=== PATIENT | female | born 1955 | race Caucasian/White ===

== ENCOUNTER → 2022-04-26 08:38 | Outpatient (BNVA) | payer MEDICARE, OTHER, SELFPAY | PROVIDERS: Referring Provider Internal Medicine; Visit Provider Specialist | DX: F07.81 Postconcussional syndrome (principal); R41.3 Other amnesia; F32.A Depression, unspecified; G43.901 Migraine, unspecified, not intractable, with status migrainosus; Z98.1 Arthrodesis status | CPT/HCPCS: 96116; 99205 ==

== ENCOUNTER 2022-05-20 07:56 | Outpatient (CLI) | payer MEDICARE, OTHER, SELFPAY ==
--- NOTE | 2022-05-20 08:00 | MR_ITS ---
WS: [id number] MRI BRAIN WITH AND WITHOUT CONTRAST HISTORY: F07.81 - Postconcussional syndrome COMPARISON: None. TECHNIQUE: Multiplanar imaging performed through the brain with MultiHance 20 ml's IV. Significant motion artifact on the postcontrast imaging. No acute infarcts are seen. Pulido-white matter differentiation is well preserved. Mild atrophy. No prior infarcts. No significant small vessel ischemic disease. No prior hemorrhage. No susceptibility artifacts or prior lacunar infarcts. Ventricles and extra-axial spaces are normal. Clivus and pituitary gland are normal. Visualized posterior fossa and brainstem are also normal. Postcontrast images are negative for masses or vascular malformations. Dural venous sinuses are normal. Paranasal sinuses: Well aerated with no significant disease. Mastoid air cells: Bilateral mastoid air cell effusions, RIGHT greater than LEFT. Calvarium and scalp: Normal. MR/MR head wo/w con [id number] IMPRESSION: 1. No acute infarct or hemorrhage. 2. Very mild atrophy. 3. No enhancing masses or vascular malformations are identified. 4. Bilateral mastoid air cell effusions, RIGHT greater than LEFT.
[2022-05-20] MEDS: gadobenate dimeglumine 20 mL vial IV (08:54)
== END 2022-05-20 07:57 | disposition home or self-care (01) ==
PROVIDERS: Visit Provider Specialist
DX: F07.81 Postconcussional syndrome (principal); R41.89 Other symptoms and signs involving cognitive functions and awareness; R51.9 Headache, unspecified
CPT/HCPCS: 70553; 95812; 95816; A9577

== ENCOUNTER 2022-05-20 10:08 | Outpatient (CLI) | payer MEDICARE, OTHER, SELFPAY ==
--- NOTE | 2022-05-20 13:10 | XR_ITS ---
WS: [id number] XR lumbar spine 2-3V* [id number] REASON FOR EXAM: LUMBAR RADICULOPATHY FINDINGS: Posterior decompression with posterior pedicle screw placement and interconnecting rods L4, L5, S1. I nterbody fusion devices at L4-L5 and L5-S1. Anterior plate and screw fixation at L5-S1. No significant vertebral body abnormality. Mild narrowing of the L1-L2 and L2-L3 disc space with severe narrowing of the L3-L4 disc space. Degen erative gas is seen in the same 3 disc spaces. No significant listhesis. XR/XR lumbar spine 2-3V* [id number] IMPRESSION: Postoperative lumbar spine with degenerative spondylosis as above.
== END 2022-05-20 10:09 | disposition home or self-care (01) ==
PROVIDERS: PCP Nurse Practitioner Family; Visit Provider Nurse Practitioner Family
DX: M54.16 Radiculopathy, lumbar region (principal); Z98.890 Other specified postprocedural states; M47.816 Spondylosis without myelopathy or radiculopathy, lumbar region
CPT/HCPCS: 72100

== ENCOUNTER 2025-03-25 13:46 | Outpatient (CLI) | payer MEDICARE, OTHER, SELFPAY ==
--- NOTE | 2025-03-25 13:51 | US_ITS ---
WS: [id number] THYROID ULTRASOUND HISTORY: THYROID NODULE COMPARISON: None available. Right lobe: 1.4 cm x 2.0 cm x 3.3 cm (w x ap x l). Volume: 4.4 cm3. Mildly enlarged nodular thyroid. There is a slightly isoechoic nodule in the mid gland with a few echogenic foci. This anterior nodule measures 1.2 x 0.7 x 1.2 cm. This is a solid nodule. Mild increased vascularity. The remaining gland is enlarged and nodular also. Left lobe: 1.4 cm x 1.3 cm x 3.2 cm (w x ap x l). Volume: 2.7 cm3. Lobulated gland. There is a nodule in the mid gland with a few echogenic foci. This is a well-circumscribed solid nodule measuring 1.1 x 1.0 x 0.8 cm. Isthmus: 0.3 cm. US/US thyroid [id number] IMPRESSION: TI-RADS 4; bilateral thyroid nodules. TI-RADS criteria recommends yearly ultras ound follow-up for nodules less than 1.5 cm. Both of these nodules are less rivka n 1.5 cm.
== END 2025-03-25 13:47 | disposition home or self-care (01) ==
LOC: RAD 13:48
PROVIDERS: PCP Nurse Practitioner Family; Visit Provider Student in an Organized Health Care Education/Training Program
DX: E04.1 Nontoxic single thyroid nodule (principal)
CPT/HCPCS: 76536

== ENCOUNTER 2025-04-13 13:40 | Emergency (ER) | payer MEDICARE, OTHER, SELFPAY ==
[2025-04-13 13:41] VITALS: BP 149/98; PULSE 95; RESP 18; TEMP 36.6; O2SAT 97; BMI 29.3
--- NOTE | 2025-04-13 13:46 | W.ED.NAVMDI ---
HPI - Nausea/Vomiting/Diarrhea General: Chief complaint: Nausea/Vomiting/Diarrhea Stated complaint: n/v/d Time Seen by Provider: 04/13/25 13:41 Source: patient and EMS Mode of arrival: EMS Limitations: no limitations History of Present Illness: 70-year-old female states she been having nausea vomiting over the last 24 hours. She denies any diarrhea she denies any worse improving factors she denies any abdominal pain has a history of a hiatal hernia. Denies any blood in her vomitus Related Data Home Medications ?Medication ?Instructions ?Recorded ?Confirmed alprazolam 2 mg tablet 2 mg PO DAILY 04/26/22 05/20/22 atomoxetine 10 mg capsule 40 mg PO QAM 04/26/22 05/20/22 atorvastatin 10 mg tablet 10 mg PO DAILY 04/26/22 05/20/22 donepezil 23 mg tablet 23 mg PO DAILY 04/26/22 05/20/22 meloxicam 15 mg tablet 15 mg PO DAILY 04/26/22 05/20/22 metaxalone 800 mg tablet 800 mg PO TID 04/26/22 05/20/22 niacin 500 mg tablet,extended 500 mg PO QAM 04/26/22 05/20/22 release vortioxetine 5 mg tablet 5 mg PO DAILY 04/26/22 05/20/22 (Trintellix) Previous Rx's ?Medication ?Instructions ?Recorded topiramate 100 mg tablet (Topamax) 100 mg PO DAILY #30 tabs 04/26/22 ondansetron 4 mg disintegrating 4 mg PO Q6H PRN nausea and 04/13/25 tablet vomiting #14 tabs Allergies Allergy/AdvReac Type Severity Reaction Status Date / Time No Known Allergies Allergy Verified 05/20/22 14:03 Review of Systems GI: Reports: vomiting Physical Exam Const: COMMON NORMALS: no acute distress, patient oriented x3 and healthy appearing HENMT: COMMON NORMALS: normocephalic and atraumatic HEAD & SCALP: normocephalic and atraumatic Neck/C-Spine: COMMON NORMALS: full ROM and supple Chest: COMMONS NORMALS: normal inspection of the chest and normal palpation of entire chest wall Resp: COMMON NORMALS: normal respiratory effort, No retractions, No use of accessory muscles and clear to auscultation bilaterally AUSCULTATION: clear to auscultation bilaterally Cardio: COMMON NORMALS: regular rate, regular rhythm and No murmurs present (Cardio) RATE: regular rate RHYTHM: regular rhythm GI: COMMON NORMALS: Normal to inspection, nondistended, normoactive bowel sounds present, Soft to palpation, non-tender and no masses PALPATION: Yes Soft to palpation Extremity: COMMON NORMALS: normal to inspection and full ROM Neuro: COMMON NORMALS: patient oriented x3, moves all extremities and no focal motor deficits Psych: COMMON NORMALS: mental status grossly normal, Normal thought process present and cooperative THOUGHT PROCESS: Normal thought process present Skin: COMMON NORMALS: no rashes or lesions noted and no wounds GENERAL SKIN EXAM: no rashes or lesions noted Course Vital Signs: Vital signs: Vital Signs Temperature 97.8 F 04/13/25 13:41 Pulse Rate 79 04/13/25 15:00 Respiratory Rate 18 04/13/25 13:41 Blood Pressure 165/93 04/13/25 15:00 Pulse Oximetry 94 04/13/25 15:00 Oxygen Delivery Me thod Room Air 04/13/25 15:00 MDM - Nausea/Vomiting/Diarrhea Medical Decision Making Patient presents here with vomiting over the last 24 hours differential includes small bowel obstruction, gastroenteritis. Patient has been well-appearing here abdominal exam here is benign did review her lab work showed no significant abnormalities white count is normal she has no signs of bowel obstruction here she been able to tolerate p.o. here after Zofran will prescribe her Zofran for home she is stable for discharge did go over findings with her she is to return if worsening she understands agrees to plan Medical Records I reviewed the patient's medical records. Lab Data I reviewed the patient's lab results. 04/13/25 14:07 04/13/25 14:07 Laboratory Results WBC 4.61 10^3/uL (3.29-11.43) 04/13/25 14:07 RBC 4.91 10^6/uL (3.85-5.65) 04/13/25 14:07 Hgb 14.40 g/dL (11.27-16.99) 04/13/25 14:07 Hct 43.1 % (36-47) 04/13/25 14:07 MCV 87.8 fl (85-98) 04/13/25 14:07 MCH 29.3 pg (27-33) 04/13/25 14:07 MCHC 33.4 g/dL (30-55) 04/13/25 14:07 RDW 12.5 % (12.1-15.1) 04/13/25 14:07 Plt Count 191 10^3/cmm (157-399) 04/13/25 14:07 MPV 9.4 fL (7.4-10.4) 04/13/25 14:07 Neut % (Auto) 60.1 % 04/13/25 14:07 Lymph % (Auto) 23.9 % 04/13/25 14:07 [place] % (Auto) 14.3 % 04/13/25 14:07 Eos % (Auto) 0.4 % 04/13/25 14:07 Baso % (Auto) 1.1 % 04/13/25 14:07 Neut # (Auto) 2.77 10^3/uL (1.8-7.7) 04/13/25 14:07 Lymph # (Auto) 1.1 10^3/uL (0.8-4.8) 04/13/25 14:07 [place] # (Auto) 0.7 10^3/uL (0.2-0.9) 04/13/25 14:07 Eos # (Auto) 0.0 10^3/uL (0.0-0.8) 04/13/25 14:07 Baso # (Auto) 0.1 10^3/uL (0.0-0.1) 04/13/25 14:07 Nucleated RBC % (auto) 0 % 04/13/25 14:07 Nucleated RBCs # 0.0 /100WBC 04/13/25 14:07 Sodium 138 mmol/L (136-145) 04/13/25 14:07 Potassium 3.5 mmol/L (3.5-5.1) 04/13/25 14:07 Chloride 101 mmol/L (98-107) 04/13/25 14:07 Carbon Dioxide 22 mmol/L (22-29) 04/13/25 14:07 Anion Gap 18.5 (5-19) 04/13/25 14:07 BUN 18 mg/dL (8-23) 04/13/25 14:07 Creatinine 0.8 mg/dL (0.5-0.9) 04/13/25 14:07 GFR Calculation 71.1 mL/min (90-130) L 04/13/25 14:07 Glucose 104 mg/dL (65-115) 04/13/25 14:07 Calculated Osmolality 288 mOsm/kg (285-295) 04/13/25 14:07 Calcium 8.9 mg/dL (8.5-10.5) 04/13/25 14:07 Total Bilirubin 1.2 mg/dL (0.15-1.2) 04/13/25 14:07 AST 25 U/L (0-32) 04/13/25 14:07 ALT 17 U/L (0-33) 04/13/25 14:07 Alkaline Phosphatase 86 U/L (35-105) 04/13/25 14:07 Total Protein 7.0 g/dL (6.6-8.7) 04/13/25 14:07 Albumin 4.4 g/dL (3.5-5.2) 04/13/25 14:07 Globulin 2.6 g/dL (1.3-4.6) 04/13/25 14:07 Lipase 26 U/L (13-60) 04/13/25 14:07 Urine Color Dark yellow (Yellow) A 04/13/25 14: Urine Appearance Cloudy (CLEAR) A 04/13/25 14:23 Urine pH 5.5 (5-7) 04/13/25 14:23 Ur Specific [place] 1.029 (1.005-1.030) 04/13/25 14:23 Urine Protein 2+ (Negative) A 04/13/25 14:23 Urine Glucose (UA) Negative (Normal) 04/13/25 14:23 Urine Ketones 2+ (Negative) H 04/13/25 14:23 Urine Blood 1+ (Negative) A 04/13/25 14:23 Urine Nitrate Negative (Negative) 04/13/25 14:23 Urine Bilirubin 2+ (Negative) H 04/13/25 14:23 Urine Urobilinogen 1.0 mg/dL (Negative) 04/13/25 14:23 Ur Leukocyte Esterase Trace (Negative) A 04/13/25 14:23 Urine RBC 3-5 /hpf (0-2) 04/13/25 14:23 Urine WBC 0-5 /hpf (0-5) 04/13/25 14:23 Ur Squamous Epith Cells 11-20 /hpf (0-5) H 04/13/25 14:23 Amorphous Sediment Not Reportable 04/13/25 14:23 Urine Bacteria Trace /hpf (NONE) 04/13/25 14:23 Hyaline Casts 30.18 /lpf 04/13/25 14:23 No radiology studies performed this visit Discharge Plan Discharge Patient Disposition: Home Clinical Impression: Vomiting Condition: Stable Prescriptions: New ondansetron 4 mg tablet,disintegrating 4 mg PO Q6H PRN (Reason: nausea and vomiting) Qty: 14 0RF No Action niacin 500 mg tablet extended release 500 mg PO QAM metaxalone 800 mg tablet 800 mg PO TID atomoxetine 10 mg capsule 40 mg PO QAM alprazolam 2 mg tablet 2 mg PO DAILY meloxicam 15 mg tablet 15 mg PO DAILY atorvastatin 10 mg tablet 10 mg PO DAILY Trintellix 5 mg tablet 5 mg PO DAILY donepezil 23 mg tablet 23 mg PO DAILY topiramate [Topamax] 100 mg tablet 100 mg PO DAILY Qty: 30 3RF Discharge Orders: Discharge ED (Routine); Ordered 04/13/25 Ordered By: Elio Dominique Referrals: Yee Tan [Primary Care Provider, FRAMING MANAGER] - 4-7 days Discharge Diet: Advance as tolerated Discharge Activity: Resume usual activity Patient Instructions: Acute Nausea and Vomiting (ED) Print Language: [place] Coding Level of Care Code ED [place] [facility] for Abisai Flores
--- OUTSIDE RECORDS SUMMARY | 2025-04-13 13:48 | XMS_ITS | Continuity of Care Document ---
Author Organization [facility], [facility] Address [address] [place] [address] Assessment No assessment recorded. Plan of Treatment Reminders Order Date Submit Date Provider Last Modified By Organization Details Last Modified Time Details Appointments Office Visit 15 2024 11:30A M STEPHANIE GONZALEZ N, DIETIST Not available Not available Not available Follow Up 15 2025 01:00P Blank GONZALEZ N, DIETIST Not available Not available Not available Lab None recorded . Referral None recorded . Procedures None recorded . Surgeries None recorded . Imaging None recorded . Medication Orders None recorded . Patient TargetsNo targets recorded. Patient Instructions Encounter Date Encounter Id Patient Instructions Last Modified By Organization Details Last Modified Time 03/14/2025 [id number] Patient discharged to self to home in stable condition. Follow up instructions given. ritika Not available 03/18/2025 13:31:23 Reason for Referral None Reported. Results Created Date Observation Date Name Description Value Unit Range Abnormal Flag Note LastModifiedBy Organization Detail LastModifiedTime 02/15/2002/16/2025 URINE CULTU RE urine culture See Note URINE CULTU RE Speci men Urine Pulido Top Tube CUL TURE* * 10,00 0-29, 999 cfu/m L Mixed uroge nital suzette Comme nts on Lab Id:[id number] Resul ts are consi stent with scottie l suzette and infec tious disea se guide lines would not sugge st furth er testi ng of this cultu re for routi ne patie nts. BMI - [facility] [address] [place] [address] Labor atory Direc tor: Kamilah nguyen, PhD, D(AB M) CLIA# [id number] Not Available [facility] [address] [place], [address], 02/16/2025 01:40:29 02/15/2002/14/2025 urina lysis , dipst ick Leukocytes Large Not Available [facility] [address], [place], [address], 02/14/2025 15:45:49 02/15/2002/14/2025 urina lysis , dipst ick Nitrite negati ve Not Available [facility] [address], [place], [address], 02/14/2025 15:45:49 02/15/2002/14/2025 urina lysis , dipst ick Urobilinogen .2 Not Available [facility] [address], [place], [address], 02/14/2025 15:45:49 02/15/2002/14/2025 urina lysis , dipst ick Protein 2000+ Not Available [facility] [address], [place], [address], 02/14/2025 15:45:49 02/15/2002/14/2025 urina lysis , dipst ick pH 7.0 Not Available [facility] [address], [place], [address], 02/14/2025 15:45:49 02/15/2002/14/2025 urina lysis , dipst ick Blood Large Not Available [facility] [address], [place], [address], 02/14/2025 15:45:49 02/15/2002/14/2025 urina lysis , dipst ick Specific [place] 1.025 Not Available [facility] [address], [place], [address], 02/14/2025 15:45:49 02/15/2002/14/2025 urina lysis , dipst ick Ketone Trace Not Available [facility] [address], [place], [address], 02/14/2025 15:45:49 02/15/2002/14/2025 urina lysis , dipst ick Bilirubin Negati ve Not Available [facility] [address], [place], [address], 02/14/2025 15:45:49 02/15/2002/14/2025 urina lysis , dipst ick Glucose Negati ve Not Available [facility] [address], [place], [address], 02/14/2025 15:45:49 02/15/2002/14/2025 urina lysis , dipst ick Appearance Cloudy Not Available [facility] [address], [place], [address], 02/14/2025 15:45:49 02/15/2002/14/2025 urina lysis , dipst ick Color Dark Yellow Not Available [facility] [address], [place], [address], 02/14/2025 15:45:49 02/26/2002/25/2025 urina lysis , dipst ick Leukocytes Negati ve Not Available [facility] [address], [place], [address], 02/25/2025 16:08:32 02/26/2002/25/2025 urina lysis , dipst ick Nitrite negati ve Not Available [facility] [address], [place], [address], 02/25/2025 16:08:32 02/26/2002/25/2025 urina lysis , dipst ick Urobilinogen .2 Not Available [facility] [address], [place], [address], 02/25/2025 16:08:32 02/26/2002/25/2025 urina lysis , dipst ick Protein Negati ve Not Available [facility] [address], [place], [address], 02/25/2025 16:08:32 02/26/2002/25/2025 urina lysis , dipst ick pH 5.0 Not Available [facility] [address], [place], [address], 02/25/2025 16:08:32 02/26/20 25 02/25/2025 urina lysis , dipst ick Blood Small Not Available [facility] [address], [place], [address], 02/25/2025 16:08:32 02/26/20 25 02/25/2025 urina lysis , dipst ick Specific [place] 1.020 Not Available [facility] [address], [place], [address], 02/25/2025 16:08:32 02/26/20 25 02/25/2025 urina lysis , dipst ick Ketone Negati ve Not Available [facility] [address], [place], [address], 02/25/2025 16:08:32 02/26/20 25 02/25/2025 urina lysis , dipst ick Bilirubin Negati ve Not Available [facility] [address], [place], [address], 02/25/2025 16:08:32 02/26/2002/25/2025 urina lysis , dipst ick Glucose Negati ve Not Available [facility] [address], [place], [address], 02/25/2025 16:08:32 02/26/2002/25/2025 urina lysis , dipst ick Appearance Slight ly Cloudy Not Available [facility] [address], [place], [address], 02/25/2025 16:08:32 02/26/2002/25/2025 urina lysis , dipst ick Color Yellow Not Available [facility] [address], [place], [address], 02/25/2025 16:08:32 02/26/2002/25/2025 urina lysis , dipst ick Leukocytes Small Not Available [facility] [address], [place], [address], 02/25/2025 12:47:32 02/26/2002/25/2025 urina lysis , dipst ick Nitrite negati ve Not Available [facility] [address], [place], [address], 02/25/2025 12:47:32 02/26/2002/25/2025 urina lysis , dipst ick Urobilinogen .2 Not Available [facility] [address], [place], [address], 02/25/2025 12:47:32 02/26/2002/25/2025 urina lysis , dipst ick Protein Trace Not Available [facility] [address], [place], [address], 02/25/2025 12:47:32 02/26/2002/25/2025 urina lysis , dipst ick pH 6.5 Not Available [facility] [address], [place], [address], 02/25/2025 12:47:32 02/26/2002/25/2025 urina lysis , dipst ick Blood Non-He molyze d: Trace Not Available [facility] [address], [place], [address], 02/25/2025 12:47:32 02/26/2002/25/2025 urina lysis , dipst ick Specific [place] 1.025 Not Available [facility] [address], [place], [address], 02/25/2025 12:47:32 02/26/2002/25/2025 urina lysis , dipst ick Ketone Trace Not Available [facility] [address], [place], [address], 02/25/2025 12:47:32 02/26/2002/25/2025 urina lysis , dipst ick Bilirubin Negati ve Not Available [facility] [address], [place], [address], 02/25/2025 12:47:32 02/26/2002/25/2025 urina lysis , dipst ick Glucose Negati ve Not Available [facility] [address], [place], [address], 02/25/2025 12:47:32 02/26/2002/25/2025 urina lysis , dipst ick Appearance Slight ly Cloudy Not Available [facility] [address], [place], [address], 02/25/2025 12:47:32 02/26/20 25 02/25/2025 urina lysis , dipst ick Color Dark Yellow Not Available [facility] [address], [place], [address], 02/25/2025 12:47:32 Result Notes None recorded. 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 2021 Vivian garrido, [facility] 2 12:27:45 Mild neurocogn itive disorder 168484312 Active 2021 Yee Tan APRN [address], [place], [address], [facility] 3 22:19:17 Chronic back pain 371992216 Active 2021 Yee Tan APRN [address], [place], [address], [facility] 3 22:17:47 Dizziness 186122919 Completed 202105/25/2023 Yee Tan APRN [address], [place], [address], [facility] 4 13:15:53 Anxiety 82499007 Active 2021 Yee Tan APRN [address], [place], [address], [facility] 3 22:16:36 Gastroeso phageal reflux disease without esophagit is 047845860 Active 2021 Yee Tan APRN [address], [place], [address], [facility] 3 22:17:47 Arthritis 6209057 Active 2021 Yee Tan APRN [address], [place], [address], [facility] 3 22:17:47 Hyperlipi demia 71562419 Active 2021 Yee Tan APRN [address], [place], [address], [facility] 3 22:16:36 Major depressiv e disorder 886451740 Completed 202105/25/2023 Yee Tan APRN [address], [place], [address], [facility] 4 00:35:11 Memory impairmen t 734106780 Active 2021 Yee Tan APRN [address], [place], [address], [facility] 3 22:17:47 Pain of left thigh 754782967284 105 Completed 202105/23/2023 Yee Tan APRN [address], [place], [address], [facility] 4 20:24:45 Poor balance 346264980 Completed 202105/25/2023 Yee Tan APRN [address], [place], [address], [facility] 4 00:35:11 Difficult y walking 849343041 Completed 202105/25/2023 Yee Tan APRN [address], [place], [address], [facility] 4 00:35:11 Impacted cerumen in right ear 855084062368 9103 Completed 202105/20/2022 Yee Tan APRN [address], [place], [address], [facility] 3 22:17:27 Postconcu ssion syndrome 56698484 Completed 202205/20/2022 Yee Tan APRN [address], [place], [address], [facility] 3 22:17:27 Lumbar radiculop athy 334293399 Completed 202205/23/2023 Yee Tan APRN [address], [place], [address], [facility] 4 20:24:41 Spasm of back muscles 022536308 Completed 202205/25/2023 Yee Tan APRN [address], [place], [address], [facility] 4 00:35:11 Pain of bilateral hip joints 506934618824 68064 Completed 202205/25/2023 Yee Tan APRN [address], [place], [address], [facility] 4 00:35:11 Spasm 47975571 Completed 202205/23/2023 Yee Tan APRN [address], [place], [address], [facility] 4 20:24:23 Screening mammograp hy Completed 202205/23/2023 Yee Tan APRN [address], [place], [address], [facility] 4 13:12:05 Adult health examinati on Completed 202205/23/2023 Yee Tan APRN [address], [place], [address], [facility] 4 13:12:36 Body mass index 30+ - obesity 603338993 Completed 202205/25/2023 Yee Tan APRN [address], [place], [address], [facility] 4 14:09:40 Screening for malignant neoplasm of cervix Completed 202205/23/2023 Yee Tan APRN [address], [place], [address], [facility] 4 20:24:23 Gynecolog ic examinati on Completed 202205/23/2023 Yee Tan APRN [address], [place], [address], [facility] 4 20:24:23 Pain in right foot 846101709879 107 Completed 202205/23/2023 Yee Tan APRN [address], [place], [address], [facility] 4 20:24:23 Pain of multiple joints 92099089 Active 2023 Yee Tan APRN [address], [place], [address], [facility] 4 00:34:17 Insomnia 038777912 Active 2023 Yee Tan APRN [address], [place], [address], [facility] 4 00:34:17 Mild recurrent major depressio n 71899980 Active 2023 Yee Tan APRN [address], [place], [address], [facility] 4 00:34:17 Attention deficit hyperacti vity disorder, predomina ntly inattenti ve type 87250484 Active 2023 Yee Tan APRN [address], [place], [address], [facility] 4 00:34:17 Daytime hypersomn ia 334062202111 02 Active 2023 Yee Tan APRN [address], [place], [address], [facility] 4 14:09:40 Mild intermitt ent asthma 651105615 Active 2023 Yee Tan APRN [address], [place], [address], [facility] 4 14:09:40 Body mass index 30+ - obesity 724591107 Active 2023 Yee Tan APRN [address], [place], [address], [facility] 4 14:09:40 Influenza A virus present 276068727040 Completed 202301/21/2025 STPEHANIE Rivera APRN [address], [place], [address], [facility] 5 11:34:50 Fever 653821346 Active 2023 Yee Tan APRN [address], [place], [address], [facility] 4 20:12:16 Bulging tympanic membrane 345681669 Active 2023 Yee Tan APRN [address], [place], [address], [facility] 4 13:15:51 Dizziness 800493242 Active 2023 Yee Tan APRN [address], [place], [address], [facility] 4 13:15:53 Screening mammograp hy Active 2023 Yee Tan APRN [address], [place], [address], [facility] 4 13:12:04 Adult health examinati on Active 2023 Yee Tan APRN [address], [place], [address], [facility] 4 13:12:36 Self-bath ing/hygie ne deficit 53234715 Active 2023 Yee Tan APRN [address], [place], [address], [facility] 4 13:17:34 Screening for osteoporo sis Active 2023 Yee Tan APRN [address], [place], [address], [facility] 4 13:17:40 Essential hypertens ion 83454573 Active 2024 STEPHANIE Rivera APRN [address], [place], [address], [facility] 5 11:36:15 Epigastri c pain 99998800 Active 2024 STEPHANIE Rivera APRN [address], [place], [address], [facility] 5 23:09:50 Recurrent urinary tract infection 357151881 Active 2024 Sudha garrido, [facility] 5 12:50:22 Incontine nce 80014827 Active 2024 STEPHANIE Rivera APRN [address], [place], [address], [facility] 5 12:35:12 Problem Notes None recorded. Procedures Surgical History Date Name Laterality Status Provider Name and Address Organization Details Recorded Time 04/22/20 22 Cerumen Removal completed Yee Tan APRN [address], [place], [address], [facility] 04/22/2022 14:54:28 03/09/20 12 implantation of neurostimulator in spine completed [facility] 04/13/2022 12:33:40 06/14/19 08 back fusion completed [facility] 04/13/2022 12:33:33 03/08/20 07 open reduction of trimalleolar fracture of ankle with internal fixation completed [facility] 04/13/2022 12:34:11 Imaging Results None recorded. Procedure Notes None recorded. Medical Equipment None Reported. Allergies Allergen ID Allergen Name Allergen Category Reaction Reaction Severity Criticality Documentation Date Start Date Code Code System Note Provider Name and Address Organization Details Recorded Time 594519 lisinopri l medicatio n cough Not available low 02/26/2025 71698 RxNorm STEPHANIERA GONZALEZ N, DIETIST [address], [place], [address], [facility] 12:36:14 Medications Name Sig Start Date Stop Date Status Note LastModified by Organization Details LastModified Time losartan 50 mg tablet TAKE 1 TABLET BY MOUTH ONCE DAILY 02/04 completed take 1/2 tablet Not Available Not Available Not Available amoxicilli n 500 mg capsule TAKE ONE CAPSULE BY MOUTH EVERY 8 HOURS UNTIL GONE 12/12 completed Not Available Not Available Not Available Xanax 0.5 mg tablet Take 1 tablet twice a day by oral route as needed. 05/19 completed Not Available Not Available Not Available atorvastat in 10 mg tablet Take 1 tablet every day by oral route at bedtime for 90 days. 2024 active Not Available Not Available Not Avai lable hydrocodon e 5 mg-acetami nophen 325 mg tablet Take 1 tablet every 6 hours by oral route as needed. 05/19 completed Not Available Not Available Not Available donepezil 10 mg tablet Take 1 tablet every day by oral route. 2024 active Not Available Not Available Not Avai lable meloxicam 15 mg tablet TAKE 1 TABLET DAILY 05/07/ 2025 active Not Available Not Available Not Avai lable Diflucan 150 mg tablet Take 1 tablet every 72 hours by oral route for 6 days. 12/27 completed Not Available Not Available Not Available penicillin V potassium 500 mg tablet TAKE ONE TABLET BY MOUTH EVERY 6 HOURS UNTIL ALL TAKEN 04/13 completed Not Available Not Available Not Available acetaminop hen 300 mg-codeine 30 mg tablet TAKE ONE TABLET BY MOUTH EVERY 8 HOURS 04/13 completed Not Available Not Available Not Available niacin 50 mg tablet Take 1 tablet every day by oral route. active Not Available Not Available No t Available tramadol 50 mg tablet TAKE ONE TABLET BY MOUTH EVERY 8 HOURS NEEDED FOR SEVERE PAIN 04/13 completed Not Available Not Available Not Available Nexium 20 mg capsule,de layed release Take 1 capsule every day by oral route. 05/23 completed Not Available Not Available Not Available prednisone 10 mg tablets in a dose pack TAKE DIRECTED ON PACKAGE FOR 6 DAYS. TAKE WITH FOOD. 09/05 completed Not Available Not Available Not Available amlodipine 10 mg tablet TAKE 1 TABLET BY MOUTH AT BEDTIME FOR BLOOD PRESSURE active Not Available Not Available No t Available pantoprazo le 40 mg tablet,del ayed release Take 1 tablet every day by oral route for 90 days. 02/26 completed Not Available Not Available Not Available oseltamivi r 75 mg capsule TAKE ONE CAPSULE BY MOUTH TWICE DAILY 08/18 completed Not Available Not Available Not Available alprazolam 2 mg tablet Take one tablet daily active taking 1/2 tab daily Not Available Not Available Not Available methylpred nisolone 4 mg tablets in a dose pack TAKE DIRECTED 04/13 completed Not Available Not Available Not Available albuterol sulfate HFA 90 mcg/actuat ion aerosol inhaler INHALE 1 TO 2 PUFFS BY MOUTH EVERY 4 TO 6 HOURS NEEDED FOR SHORTNES S OF BREATH active Not Available Not Available No t Available betamethas one dipropiona te 0.05 % topical ointment 05/17 completed Not Available Not Available Not Available lisinopril 40 mg tablet Take 1 tablet every day by oral route for 90 days. 02/26 completed Not Available Not Available Not Available ondansetro n 4 mg disintegra ting tablet DISSOLVE ONE TABLET UNDER THE TONGUE ONCE DAILY NEEDED 04/13 completed Not Available Not Available Not Available topiramate 100 mg tablet 06/07 completed Not Available Not Available Not Available modafinil 100 mg tablet 08/18 completed Not Available Not Available Not Available neomycin-p olymyxin-h ydrocort 3.5 mg-10,000 unit/mL-1 % ear drops,susp TWO drops into affected ear THREE TIMES DAILY FOR 10 DAYS 04/13 completed Not Available Not Available Not Available dexamethas one sodium phosphate 4 mg/mL injection syringe Inject 2 mL by intramus cular route for 1 day. 09/05 completed Not Available Not Available Not Available metaxalone 800 mg tablet Take 1 tablet 3 times a day by oral route as needed. 01/18 completed Not Available Not Available Not Available atomoxetin e 10 mg capsule Take 1 capsule every day by oral route in the morning. 02/26 completed Not Available Not Available Not Available nitrofuran toin monohydrat e/macrocry stals 100 mg capsule TAKE 1 CAPSULE BY MOUTH EVERY 12 HOURS WITH A MEAL FOR 7 DAYS 02/26 completed Not Available Not Available Not Available eszopiclon e 3 mg tablet as needed 01/18 completed Not Available Not Available Not Available niacin (inositol niacinate) 500 mg capsule Take 1 capsule every day by oral route. 05/26 completed Not Available Not Available Not Available donepezil 23 mg tablet Take one tablet daily 02/26 completed Not Available Not Available Not Available Suprep Bowel Prep Kit 17.5 gram-3.13 gram-1.6 gram oral solution TAKE DIRECTED 04/13 completed Not Available Not Available Not Available marijuana (cannabis) active Not Available Not Available N ot Available Trintellix 5 mg tablet TAKE 1 TABLET BY MOUTH DAILY active Not Available Not Available No t Available Dupixent 300 mg/2 mL subcutaneo us pen injector 03/14 completed stop taking Not Available Not Available Not Available Sutab 1.479-0.18 8-0.225 gram tablet USE DIRECTED BY OFFICE 04/13 completed Not Available Not Available Not Available Vitals Date Recorded Body height Body mass index (BMI) Body weight Respiratory rate Body temperature Heart rate Oxygen saturation Systolic And Diastolic Provider Name and Address Organization Details Last Updated DateTime 5 167.64 cm 32 kg/m2 79983.2 9 g 19 /min 98 [degF] 68 /min 98 % 136/74 mm[Hg] [facility] 14:59:27 Social History Question Answer Notes LastModified by [employer] Details LastModified Time Tobacco Smoking Status Never Smoker Vivian garrido, [facility] 04/13/2022 12:56:00 In The 14 Days Before Symptom Onset, Have You Had Close Contact With A Laboratory-confirm ed COVID-19 While That Case Was Ill? No [email or web address] Information n ot available 04/13/2022 In The 14 Days Before Symptom Onset, Have You Had Close Contact With A Person Who Is Under Investigation For COVID-19 While That Person Was Ill? No [email or web address] Information not available 04/13/2022 Have You Been To An Area Known To Be High Risk For COVID-19? Yes Information not available 04/13/2022 What Type Of Diet Are You Following? REGULAR [email or web address] Information n ot available 04/13/2022 What Was The Date Of Your Most Recent Tobacco Screening? 03/29/2025 Information not available 03/29/2025 Do You Use Your Seat Belt Or Car Seat Routinely? Yes [email or web address] Information not available 04/13/2022 Has Tobacco Cessation Counseling Been Provided? Yes Information not available 04/13/2022 On What Date Was Tobacco Cessation Counseling Provided? 03/29/2025 Information not available 03/29/2025 Sex: Female Functional Status Question Answer Note LastModified by [employer] Details LastModified Time Do you use any illicit or recreational drugs? No [email or web address] Information not available 04/13/2022 Do you or have you ever used any other forms of tobacco or nicotine? No Information not available 04/13/2022 What is your level of alcohol consumption? None [email or web address] Information not available 04/13/2022 What is your exercise level? None [email or web address] Information not available 04/13/2022 Mental Status Question Answer Note LastModified by Organization D etails LastModified Time Do you feel stressed (tense, restless, nervous, or anxious, or unable to sleep at night)? [id number] Information not available 04/13/2022 Family History Relationship Description Onset Age of this Age Resolved Age Notes LastModified by Organization Details LastModified Time Father Diabetes mellitus [email or web address] Not available 04/13 12:55:01 Father Family history of malignant neoplasm [email or web address] Not available 04/13 12:55:26 Mother Diabetes mellitus [email or web address] Not available 04/13 12:55:04 Mother Hypertensive disorder [email or web address] Not available 04/13 12:55:14 Medical History Condition Response Coronary Artery Disease N Gout N Kidney Stones N COPD N Depression N HX Inpatient Psych Admission N Congestive Heart Failure N Parkinson's N Anxiety Disorder N Muscle, Joint, or Bone Problems N Vision or Eye Problems N Arthritis N Cancer N Stroke N Hospital Admission other than N Fibromyalgia N Kidney Disease N Prostate N Ear or Hearing Problems N ADD or ADHD N Skin Problems N Constipation N Tuberculosis N Pacemaker / Defibrillator N Asthma N Allergies N Chicken Pox N Serious Illness or Injuries N Blood Disease N Seizures / Epilepsy N Congenital Anomalies N Bladder or Kidney Problems N High Cholesterol N Liver Disease N Pulmonary Embolism / DVT N Thyroid Problems N Anemia N Diabetes N Bedwetting N Eczema, Hives, or other skin conditions N Diverticulitis N Dementia N GERD / Reflux N Heart Disease N Hypertension N Osteoporosis N Gynecological History Statement/Question Response Menses Monthly Y Abnormal Pap N HPV Vaccine N Age at Menarche 14 Obstetrics History GPAL:G 0 P 0 0 0 0 Past Encounters Encounter ID Performer Location Encounter Start Date Encounter Closed Date Diagnosis/Indication Diagnosis SNOMED-CT Code Diagnosis ICD10 Code Diagnosis IMO Codes Diagnosis Note [id number] [facility] [address] [place] [id number] 02/14/2025 15:12:23 02/14/2025 15:48:55 Acute cystitis [id number] N30.01 R30.0 [id number] 1. Increase oral liquids. 2. May start/cont Azo for the dysuria. 3. Ensure that you complete the entire dose of antibiotic s. 4. FU in 10 days to have UA repeated. Culture sent today. Essential hypertension [id number] I10 26411 1. Improved, just start Lisinopril two days ago. Check blood pressure daily. Write these readings down and bring to next follow-up visit.2. Educated on the importance of aerobic exercise at least 30 minutes daily to help reduce blood pressure.4 . Continue Lisinopril 40mg daily. F/u in 10 days to review BP. [id number] [facility] [address] [place] [id number] 02/26/2025 11:03:34 02/26/2025 11:55:55 Incontinence [id number] N39.46 R31.29 [id number] 1. Limit caffeine and alcoho as they stimulate urine production .2. Urinate every 2 to 4 hours during waking hours, even if you feel that you do not have to go.3. Do pelvic floor (Kegel) exercises, which tighten and strengthen pelvic muscles.4. Continue wearing pads that absorb the leaks.5. Keep skin in the genital area dry.6. Contact the clinic if you have a hard time urinating when your bladder feels full. You feel like you need to urinate often. Your bladder feels full even after you urinate or your symptoms are getting worse.7. Consult with urology for worsening with hematuria. Essential hypertension [id number] I10 20881 1. Stop Lisinopril d/t cough. Start Amlodipine 10mg at hs. Check blood pressure daily. Write these readings down and bring to next follow-up visit.2. Educated on the importance of aerobic exercise at least 30 minutes daily to help reduce blood pressure.3 . F/u in 1 month. Hiatal hernia [id number] K 44.9 9218 1. F/u with surgeon as scheduled. 2. Trial d/c of Protonix.3 . F/u in 1 month. [id number] [facility] [address] [place] [id number] 03/14/2025 14:46:26 03/14/2025 15:13:13 Essential hypertension [id number] I10 82079 1. Continue Amlodipine 10mg at hs. Check blood pressure daily. Write these readings down and bring to next follow-up visit.2. Educated on the importance of aerobic exercise at least 30 minutes daily to help reduce blood pressure.3 . Educated provided on BP parameters .4. F/u as scheduled. Sooner for worsening. Health Concerns Section Related Observation LastModified by Organization Detai ls LastModified Time None Recorded Concern Status LastModified by Organization Details LastModified Time None Recorded Payers Encounter Date Sequence Insurance Name Policy Number Policy Garcia Covered Member ID Garcia Member ID Guarantor Name 03/14/2025 1 MEDICARE-[place] (MEDICARE) Sia Lakhani [id number] Sia Lakhani 03/14/2025 2 FOR LIFE ( - MEDICARE SUPPLEMENT) Sia Kim Kar [id number] Sia Kim Kar Notes Date Note Type Note Provider Name and Address Organization Details Recorded Time 03/14/2025 text/html Patient is a 70 y/o female seen today for a f/u on BP. She reports that BP has been taking BP at home. Reports it has been running around 120s/80s at home. She had concerns this was getting too low so she cam today to discuss. Reviewed guidelines with patient today. She is scheduled on Tuesday for an US and further imaging for the hiatal hernia. She is scheduled on the to see Dr. Ochoa regarding incontinence with urinary urgency. STEPHANIE LO, DIETIST [address], [place], [address], [facility] 03/18/2025 13:31:45 OBGyn Episode No OBEpisode recorded.
--- OUTSIDE RECORDS SUMMARY | 2025-04-13 13:48 | XMS_ITS | Clinical Summary ---
Author Organization [facility] Address [address] [place] [address] Phone Care Team Providers Care Pond Scaler Name Role Phone Alcira Mckee MD Primary Care Provider Allergies No known active allergies Medications esomeprazole (NEXIUM) 20 mg Oral CpDR Take 20 mg by mouth daily before breakfast. Active metaxalone (SKELAXIN) 800 mg Oral tablet Take 800 mg by mouth 1 time daily as needed. Active multivitamin (DAILY-DIONNE) Oral tablet Take 1 Tab by mouth daily. Active GINKGO BILOBA (GINKOBA ORAL) Take 120 mg by mouth daily. Active Bilberry Oral Cap Take 1 Cap by mouth daily. Active ibuprofen (MOTRIN) 800 mg Oral tablet Take 800 mg by mouth every 8 hours as needed. Active HYDROcodone-geovanni taminophen (NORCO) 10-325 mg Oral Tab Take 1 Tablet by mouth 1 time daily as needed Patient takes 5mg. Active VIT B2/NIACIN/B-6/B -12/D-PANTH (B COMPLEX SUBLINGUAL)Soila cations:Postlam inectomy syndrome, lumbar region,S/P insertion of spinal cord stimulator Place under tongue. Active niacin (NIACOR) 250 mg tabletIndicatio ns:Postlaminect mirna syndrome, lumbar region,S/P insertion of spinal cord stimulator Take 250 mg by mouth daily. Active RED YEAST RICE ORALIndications :Postlaminectom y syndrome, lumbar region,S/P insertion of spinal cord stimulator Take by mouth daily . Active TURMERIC, BULK, MISCIndications :Postlaminectom y syndrome, lumbar region,S/P insertion of spinal cord stimulator Take by mouth daily . Active PANCREAT/BETAIN E/PEPSIN/BROMEL (SUPER ENZYME ORAL)Indication s:Postlaminecto my syndrome, lumbar region,S/P insertion of spinal cord stimulator Take by mouth 2 times daily . Active naproxen sodium (ALEVE) 220 mg TabletIndicatio ns:Postlaminect mirna syndrome, lumbar region,S/P insertion of spinal cord stimulator Take 220 mg by mouth every 4 hours as needed for Pain, Moderate. Active acetaminophen (TYLENOL) 500 mg tabletIndicatio ns:Postlaminect mirna syndrome, lumbar region,S/P insertion of spinal cord stimulator Take 500 mg by mouth every 6 hours as needed. Active zolpidem (AMBIEN) 10 mg tabletIndicatio ns:Postlaminect mirna syndrome, lumbar region,S/P insertion of spinal cord stimulator Take 10 mg by mouth nightly as needed for Insomnia. Active atomoxetine (STRATTERA) 10 mg capsuleIndicati ons:Postlaminec roge syndrome, lumbar region,S/P insertion of spinal cord stimulator Take 10 mg by mouth daily. Active donepezil (ARICEPT) 10 mg tablet Take 10 mg by mouth daily . 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 Gender Identity Not on file Sexual Orientation Not on file Occupation Industry Job Start Date Job End Date Not on file Not on file Not on file Not on file Last Filed Vital Signs Vital Sign Reading Time Taken Comments Blood Pressure 146/90 09/15/2016 10:20 AM CDT Pulse 76 09/15/2016 10:20 AM CDT Temperature 36.4 C (97.5 F) 09/15/2016 9:19 AM CDT Respiratory Rate 16 09/15/2016 10:20 AM CDT Oxygen Saturation 99% 09/15/2016 10:20 AM CDT Inhaled Oxygen Concentration - - Weight 93.9 kg (207 lb) 09/15/2016 6:32 AM CDT Height 167.6 cm (5' 6 ) 09/15/2016 6:32 AM CDT Body Mass Index 33.41 09/15/2016 6:32 AM CDT Plan of Treatment Health Maintenance Due Date Last Done Comments DTAP/TDAP/TD VACCINES (1 - Tdap) 02/23/1975 BREAST CANCER SCREENING 1996 COLORECTAL SCREENING 02/23/2001 Colorectal Cancer Screening 02/23/2001 FIT-DNA Q 3 years 02/23/2001 FIT/FOBT Q 1 year 02/23/2001 Flex Sig/CT Colonography Q 5 years 02/23/2001 PNEUMOCOCCAL VACCINE 50+ YEARS (1 of 1 - PCV) 02/24/20 06 ZOSTER VACCINE (1 of 2) 02/23/2006 OSTEOPOROSIS SCREENING 02/23/2021 INFLUENZA VACCINE (#1) 2024 RSV VACCINE (60+ or ) (1 - 1-dose 75+ series) 02/23/2031 Medical Devices Implanted Type Area Business Writer Device Identifier Shelf Expiration Date Model / Serial / Lot Programer Precision Pat Kt Sc-5500-4 - [id number] Implanted:Qty: 1 on 02/21/2012 at [facility] Neuro [employer]- NEURO MODULATION SC-5500-4 / / Explanted Type Area Business Writer Device Identifier Shelf Expiration Date Model / Serial / Lot [place] Clik Next Gnrtn Kt Sc-4316 - [id number] Implanted:Qty: 1 on 02/21/2012 at [facility] Explanted:Qty: 1 on 09/15/2016 at [facility] [place] N/A: Back [employer]- NEURO MODULATION 01/06/2014 ND-4316 / / [id number] Lead Precision Linear 50cm Sc-2218-50 - [id number] Implanted:Qty: 1 on 02/21/2012 by Lemuel Ramirez MD at [facility] Explanted:Qty: 1 on 09/15/2016 at [facility] Lead Bilatera l: Back [employer] NEURO MODULATION 01/06/2014 / [id number] / Lead Precision Linear 50cm Mo-2218-50 - [id number] Implanted:Qty: 1 on 02/21/2012 at [facility] Explanted:Qty: 1 on 09/15/2016 at [facility] Lead N/A: Back [employer]- NEURO MODULATION 01/06/2014 ND-2218-50 / [id number] / Generator Pulse Precision Mo-1110-02 - [id number] Implanted:Qty: 1 on 02/21/2012 at [facility] Explanted:Qty: 1 on 09/15/2016 at [facility] Other N/A: Back [employer]- NEURO MODULATION 02/05/2014 [facility] [place] [id number] / [place] [id number] MEDICARE PART A AND B Bright!Tax Advance Directives For more information, please contact: [phone] * Full Code (Latest Code Status on File) Date Activated Date Inactivated Comments 09/15/2016 8:39 AM 09/15/2016 12:30 PM * Full Code Date Activated Date Inactivated Comments 09/15/2016 6:45 AM 09/15/2016 8:39 AM * Full Code Date Activated Date Inactivated Comments 02/21/2012 1:57 PM 02/21/2012 6:56 PM Care Teams Pond Scaler Relationship Specialty Start Date End Date Alcira Mckee MD PCP - General Internal Medicine 02/18/12
--- OUTSIDE RECORDS SUMMARY | 2025-04-13 13:48 | XMS_ITS | Clinical Summary ---
Author Organization [facility] Address [address] Attn: Epic Prelude ADT [place] [address] Care Team Providers Care Commutator Tester Name Role Phone Alcira Mckee MD Primary Care Provider Allergies No known active allergies Medications niacin (NIACOR) 250 mg tabletIndicatio ns:Postlaminect mirna syndrome, lumbar region,S/P insertion of spinal cord stimulator Take 250 mg by mouth daily. 08/30/2016 Active TURMERIC, BULK, MISCIndications :Postlaminectom y syndrome, lumbar region,S/P insertion of spinal cord stimulator Take by mouth daily . 08/30/2016 Active atomoxetine (STRATTERA) 10 mg capsuleIndicati ons:Postlaminec roge syndrome, lumbar region,S/P insertion of spinal cord stimulator Take 10 mg by mouth daily. 08/30/2016 Active pancreat/betain e/pepsin/bromel (SUPER ENZYME ORAL)Indication s:Postlaminecto my syndrome, lumbar region,S/P insertion of spinal cord stimulator Take by mouth 2 times daily . 08/30/2016 Active vit B2/niacin/B6/B1 2/dexpanth (B COMPLEX SUBLINGUAL)Soila cations:Postlam inectomy syndrome, lumbar region,S/P insertion of spinal cord stimulator Place under tongue. 08/30/2016 Active naproxen sodium (ALEVE) 220 mg TabletIndicatio ns:Postlaminect mirna syndrome, lumbar region,S/P insertion of spinal cord stimulator Take 220 mg by mouth every 4 hours as needed for Pain, Moderate. 08/30/2016 Active RED YEAST RICE ORALIndications :Postlaminectom y syndrome, lumbar region,S/P insertion of spinal cord stimulator Take by mouth daily . 08/30/2016 Active donepeziL (ARICEPT) 10 mg tablet Take 10 mg by mouth daily . 08/12/2016 Active zolpidem (AMBIEN) 10 mg tabletIndicatio ns:Postlaminect mirna syndrome, lumbar region,S/P insertion of spinal cord stimulator Take 10 mg by mouth nightly as needed for Insomnia. 08/30/2016 Active acetaminophen (TYLENOL) 500 mg tabletIndicatio ns:Postlaminect mirna syndrome, lumbar region,S/P insertion of spinal cord stimulator Take 500 mg by mouth every 6 hours as needed. 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 Gender Identity Not on file Sexual Orientation Not on file Last Filed Vital Signs Vital Sign Reading Time Taken Comments Blood Pressure 146/90 09/15/2016 10:20 AM CDT Pulse 76 09/15/2016 10:20 AM CDT Temperature 36.4 C (97.5 F) 09/15/2016 9:19 AM CDT Respiratory Rate 16 09/15/2016 10:20 AM CDT Oxygen Saturation - - Inhaled Oxygen Concentration - - Weight 93.9 [...] YEARS (1 of 1 - PCV) 02/24/20 ZOSTER VACCINE (1 of 2) 02/23/2006 OSTEOPOROSIS SCREENING 02/23/2021 INFLUENZA VACCINE (#1) 2024 RSV VACCINE (60+ or ) (1 - 1-dose 75+ series) 02/23/2031 Medical Devices Implanted Type Area Interlocker Maintainer Device Identifier Shelf Expiration Date Model / Serial / Lot Programer Precision Pat Kt Sc-5500-4 - [id number] Implanted:Qty: 1 on 02/21/2012 Neuro [employer] NEURO MODULATION SC-5500-4 / / Explanted Type Area Interlocker Maintainer Device Identifier Shelf Expiration Date Model / Serial / Lot Mcdermitt Clik Next Gnrtn Kt Sc-4316 - [id number] Implanted:Qty: 1 on 02/21/2012 Explanted:Qty: 1 on 09/15/2016 [employer] N/A: Back [employer] NEURO MODULATION 01/06/2014 KS-4316 / / [id number] Lead Precision Linear 50cm Ny-2218-50 - [id number] Implanted:Qty: 1 on 02/21/2012 Explanted:Qty: 1 on 09/15/2016 Lead N/A: Back [employer] NEURO MODULATION 01/06/2014 KS-2218-50 / [id number] / Lead Precision Linear 50cm Ny-2218-50 - [id number] Implanted:Qty: 1 on 02/21/2012 by Lemuel Ramirez MD Explanted:Qty: 1 on 09/15/2016 Lead Bilateral : Back [employer] NEURO MODULATION 01/06/2014 / [id number] / Generator Pulse Precision Sc-1110-02 - [id number] Implanted:Qty: 1 on 02/21/2012 Explanted:Qty: 1 on 09/15/2016 Other N/A: Back [employer]- NEURO MODULATION 02/05/2014 KS-1110-02 / [id number] / Care Teams Commutator Tester Relationship Specialty Start Date End Date Alcira Mckee MD [address] [place] [id number] PCP - General Internal Medicine 02/18/12
--- OUTSIDE RECORDS SUMMARY | 2025-04-13 13:48 | XMS_ITS | Data Portability ---
Author Organization [facility], [facility] Address [address] [address] Assessment No assessment recorded. Plan of Treatment Reminders Order Date Submit Date Provider Last Modified By Organization Details Last Modified Time Details Appointments Office Visit 15 2024 11:30A M TRUPTI GONZALEZ N, SERVER PROGRAMMER Not available Not available Not available Follow Up 15 2025 01:00P M TRUPTI GONZALEZ N, SERVER PROGRAMMER Not available Not available Not available Lab urinalysi s, dipstick 2024 025 [facility] [address], [place], [address], 02/14/2025 17:28:02 culture, urine 2024 025 YEISON [facility] [address] [place], [address], 02/16/2025 01:40:29 Referral urologist referral 2024 025 YEISON Ochoa MD, [address], [place], [address], 04/01/2025 20:18:39 Procedures None recorded. Surgeries None recorded. Imaging None recorded. Medication Orders amlodipin e 10 mg tablet 2024 025 YEISON [facility], [facility], [place], [address], 03/29/2025 14:22:39 amlodipin e 10 mg tablet 2024 025 YEISON [facility], [address], [place], [address], 03/29/2025 14:40:14 nitrofura ntoin monohydra te/macroc rystals 100 mg capsule 2024 025 YEISON [facility], [address], [place], [address], 02/26/2025 11:37:45 lisinopri l 40 mg tablet 2024 YEISON [facility], [address] [place] [address], [address], 02/26/2025 12:40:02 Patient TargetsNo targets recorded. Patient Instructions Encounter Date Encounter Id Patient Instructions Last Modified By Organization Details Last Modified Time 02/04/2025 [id number] Patient discharged to self to home in stable condition. Follow up instructions given. [email or web address] Not available 02/04/2025 23:09:58 02/14/2025 [id number] Patient discharged to self to home in stable condition. Follow up instructions given. [email or web address] Not available 02/14/2025 15:54:09 02/26/2025 [id number] Patient discharged to self to home in stable condition. Follow up instructions given. [email or web address] Not available 02/26/2025 12:39:43 03/14/2025 [id number] Patient discharged to self to home in stable condition. Follow up instructions given. [email or web address] Not available 03/18/2025 13:31:23 03/29/2025 [id number] Patient discharged to self to home in stable condition. Follow up instructions given. [email or web address] Not available 03/29/2025 14:22:21 Reason for Referral Urologist Referral for Incon tinence Referring Physician: Trupti Lo, Family Medicine, Encounter Date: 02/26/2025 Results Created Date Observation Date Name Description Value Unit Range Abnormal Flag Note LastModifiedBy Organization Detail LastModifiedTime 02/07/2002/07/2025 COMP METAB OLIC PANEL sodium 141 mEq/L 135-14 6 Not Available [facility] [address] [place], [address], 02/07/2025 17:38:21 02/07/20 25 02/07/2025 COMP METAB OLIC PANEL potassium 4.0 mEq/L 3.5-5. 4 Not Available [facility] [address] [place], [place], [address], 02/07/2025 17:38:21 02/07/2002/07/2025 COMP METAB OLIC PANEL chloride 103 mEq/L 95-107 Not Available [facility] [address] [place], [address], 02/07/2025 17:38:21 02/07/20 25 02/07/2025 COMP METAB OLIC PANEL carbon dioxide 20 mEq/L 19-31 Not Available [facility] [address] [place], [place], [address], 02/07/2025 17:38:21 02/07/20 25 02/07/2025 COMP METAB OLIC PANEL anion gap 18 mEq/L 7-23 Not Available [facility] [address] [place], [address], 02/07/2025 17:38:21 02/07/2002/07/2025 COMP METAB OLIC PANEL glucose non-fasting 135 mg/dL 70-139 Not Available [facility] [address] [place], [place], [address], 02/07/2025 17:38:21 02/07/20 25 02/07/2025 COMP METAB OLIC PANEL urea nitrogen (BUN) 12 mg/dL 8-23 Not Available [facility] [address] [place], [place], [address], 02/07/2025 17:38:21 02/07/20 25 02/07/2025 COMP METAB OLIC PANEL creatinine 0.67 mg/dL 0.60-1 .30 Not Available [facility] [address] [place], [place], [address], 02/07/2025 17:38:21 02/07/20 25 02/07/2025 COMP METAB OLIC PANEL 2020 CKD-epi eGFR-cr 95 mL/mi n/1.7 3m'2 >59 Not Available [facility] [address] [place], [place], [address], 02/07/2025 17:38:21 02/07/20 25 02/07/2025 COMP METAB OLIC PANEL BUN/creatini ne ratio 18 ratio Not Available [facility] [address] [place], [place], [address], 02/07/2025 17:38:21 02/07/20 25 02/07/2025 COMP METAB OLIC PANEL calcium total 9.3 mg/dL 8.5-10 .5 Not Available [facility] [address] [place], [address], 02/07/2025 17:38:21 02/07/20 25 02/07/2025 COMP METAB OLIC PANEL protein total 6.6 g/dL 6.1-8. 3 Not Available [facility] [address] [place], [address], 02/07/2025 17:38:21 02/07/20 25 02/07/2025 COMP METAB OLIC PANEL albumin 4.5 g/dL 3.5-5. 2 Not Available [facility] [address] [place], [address], 02/07/2025 17:38:21 02/07/20 02/07/2025 COMP METAB OLIC PANEL globulin 2.1 g/dL 1.7-4. 3 Not Available [facility] [address] [place], [address], 02/07/2025 17:38:21 02/07/20 25 02/07/2025 COMP METAB OLIC PANEL A/G ratio 2.1 ratio 0.9-2. 8 Not Available [facility] [address] [facility] [place], [address], 02/07/2025 17:38:21 02/07/20 25 02/07/2025 COMP METAB OLIC PANEL bilirubin total 1.2 mg/dL 0.0-1. 2 Not Available [facility] [address] [place], [address], 02/07/2025 17:38:21 02/07/20 25 02/07/2025 COMP METAB OLIC PANEL alkaline phosphatase 85 U/L 40-142 Not Available [facility] [address] [place], [address], 02/07/2025 17:38:21 02/07/20 25 02/07/2025 COMP METAB OLIC PANEL AST (SGOT) 20 U/L 9-40 Not Available [facility] [address] [place], [address], 02/07/2025 17:38:21 02/07/20 25 02/07/2025 COMP METAB OLIC PANEL ALT (SGPT) 19 U/L 5-40 Comme nt for COMP METAB OLIC PANEL Fasti ng statu s not provi ded. If the patie nt faste d the appro priat e gluco se refer ence range is 70-99 mg/dL . Not Available [facility] [address] [place], [address], 02/07/2025 17:38:21 02/07/20 25 02/07/2025 AMYLA SE amylase 27 U/L 28-100 low Not Available [facility] [address] [place], [address], 02/07/2025 17:38:22 02/07/20 25 02/07/2025 LIPAS E lipase 46 U/L 13-60 Not Available [facility] [address] [place], [address], 02/07/2025 17:38:22 02/07/20 25 02/07/2025 H PYLOR I BREAT H TEST H pylori breath index 0.2 % Not Available Nohelia jarvis [facility] [address] [place], [address], 02/07/2025 17:38:23 02/07/20 25 02/07/2025 H PYLOR I BREAT H TEST H pylori breath test Negati ve negati ve Comme nt for H PYLOR I BREAT H TEST Inter preta tion: Negat yeny: <3.0% Posit yeny: >=3.0 % Not Available [facility] [address] [place], [address], 02/07/2025 17:38:23 02/07/20 25 02/07/2025 CBC WITH DIFFE RENTI AL WBC 5.3 K/uL 4.0-11 .0 Not Available [facility] [address] [place], [address], 02/07/2025 17:38:23 02/07/20 25 02/07/2025 CBC WITH DIFFE RENTI AL RBC 4.87 M/uL 4.00-5 .50 Not Available [facility] [address] [place], [address], 02/07/2025 17:38:23 02/07/20 25 02/07/2025 CBC WITH DIFFE RENTI AL hemoglobin 14.6 g/dL 12.0-1 6.0 Not Available [facility] [address], [place], [address], 02/07/2025 17:38:23 02/07/20 25 02/07/2025 CBC WITH DIFFE RENTI AL hematocrit 43.9 % 36.0-4 8.0 Not Available [facility] [address] [place], [address], 02/07/2025 17:38:23 02/07/20 25 02/07/2025 CBC WITH DIFFE RENTI AL MCV 90.1 fL 78.0-1 02.0 Not Available [facility] [address], [place], [address], 02/07/2025 17:38:23 02/07/20 25 02/07/2025 CBC WITH DIFFE RENTI AL MCH 30.0 pg 25.0-3 5.0 Not Available [facility] [address] [place], [address], 02/07/2025 17:38:23 02/07/20 25 02/07/2025 CBC WITH DIFFE RENTI AL MCHC 33.3 g/dL 30.0-3 8.0 Not Available [facility] [address] [place], [address], 02/07/2025 17:38:23 02/07/20 25 02/07/2025 CBC WITH DIFFE RENTI AL RDW 13.0 % 11.5-1 6.0 Not Available [facility] [address] [place], [address], 02/07/2025 17:38:23 02/07/20 25 02/07/2025 CBC WITH DIFFE RENTI AL platelet count 275 K/uL 150-45 0 Not Available [facility] [address] [place], [place], [address], 02/07/2025 17:38:23 02/07/20 25 02/07/2025 CBC WITH DIFFE RENTI AL abs neutrophils 2.5 K/uL 1.8-7. 0 Not Available [facility] [address] [place], [place], [address], 02/07/2025 17:38:23 02/07/20 25 02/07/2025 CBC WITH DIFFE RENTI AL abs lymphocytes 2.2 K/uL 1.0-4. 0 Not Available [facility] [address] [place], [place], [address], 02/07/2025 17:38:23 02/07/20 25 02/07/2025 CBC WITH DIFFE RENTI AL abs monocytes 0.3 K/uL 0.1-1. 1 Not Available [facility] [address] [place], [place], [address], 02/07/2025 17:38:23 02/07/20 25 02/07/2025 CBC WITH DIFFE RENTI AL abs eosinophils 0.2 K/uL 0.0-0. 5 Not Available [facility] [address] [place], [place], [address], 02/07/2025 17:38:23 02/07/20 25 02/07/2025 CBC WITH DIFFE RENTI AL abs basophils 0.1 K/uL 0.0-0. 3 Not Available [facility] [address] [place], [address], 02/07/2025 17:38:23 02/07/20 25 02/07/2025 CBC WITH DIFFE RENTI AL abs immature grans 0.0 K/uL 0.0-0. 1 Not Available [facility] [address], [place], [address], 02/07/2025 17:38:23 02/07/20 25 02/07/2025 CBC WITH DIFFE RENTI AL neutrophils 47.9 % Not Available [facility] [address] [place], [place], [address], 02/07/2025 17:38:23 02/07/20 25 02/07/2025 CBC WITH DIFFE RENTI AL lymphocytes 40.6 % Not Available [facility] [address] [place], [place], [address], 02/07/2025 17:38:23 02/07/20 25 02/07/2025 CBC WITH DIFFE RENTI AL monocytes 6.6 % Not Available [facility] [address] [place], [address], 02/07/2025 17:38:23 02/07/20 25 02/07/2025 CBC WITH DIFFE RENTI AL eosinophils 3.4 % Not Available [facility] [address] [place], [address], 02/07/2025 17:38:23 02/07/20 25 02/07/2025 CBC WITH DIFFE RENTI AL basophils 1.3 % Not Available [facility] [address] [place], [address], 02/07/2025 17:38:23 02/07/20 25 02/07/2025 CBC WITH DIFFE RENTI AL immature grans 0.2 % Not Available [facility] [address] [place], [address], 02/07/2025 17:38:23 02/07/20 25 02/07/2025 CBC WITH DIFFE RENTI AL nucleated RBCs <1.0 /100_ WBCs <1 Not Available [facility] [address] [place], [place], [address], 02/07/2025 17:38:23 02/07/2002/11/2025 MANUA L ADD-O N date of collection 2024 Not Available [facility] [address] [place], [place], [address], 02/12/2025 02:38:49 02/07/2002/11/2025 MANUA L ADD-O N test set codes C114 Not Available [facility] [address] [place], [place], [address], 02/12/2025 02:38:49 02/07/2002/11/2025 MANUA L ADD-O N test(s) requested HEMOGL OBIN A1C Not Available [facility] [address] [place], [place], [address], 02/12/2025 02:38:49 02/07/2002/11/2025 MANUA L ADD-O N submitted DX code(s) R73.9 Not Available [facility] [address] [place], [place], [address], 02/12/2025 02:38:49 02/07/2002/11/2025 MANUA L ADD-O N requested by REINA Abreu LPN Not Available [facility] [address] [place], [place], [address], 02/12/2025 02:38:49 02/07/2002/11/2025 MANUA L ADD-O N date requested 2024 Not Available [facility] [address], [place], [address], 02/12/2025 02:38:49 02/07/2002/11/2025 MANUA L ADD-O N signature Signat ure: ___ Not Available [facility] [address] [place], [address], 02/12/2025 02:38:49 02/07/2002/11/2025 MANUA L ADD-O N date Date: _ Comme nt for VERBA L ADD ON CONFI RM We are attem pting to add the test( s) liste d above per your reque st. If the test is unabl e to be added , you will recei ve notif icati on. A maria r d writt en order is requi red for all tests reque sted. Pleas e sign and fax a copy of this state ment for our recor ds to withi n 24 hours . Not Available [facility] [address] [facility] [place], [address], 02/12/2025 02:38:49 02/07/2002/12/2025 HEMOG LOBIN A1C hemoglobin A1C 6.1 % 4.2-5. 6 high Not Available [facility] [address] [place], [address], 02/12/2025 02:38:50 02/07/2002/12/2025 HEMOG LOBIN A1C mean glucose est 128 mg/dL Comme nt for HEMOG LOBIN A1C [facility] n Guide lines for Hgb A1c: Predi abete s/Inc rease d risk: 5.7 - 6.4 % Diagn osis of diabe gabe: >= 6.5 % (with confi rmati on or appro priat e sympt oms) Assay may be affec vipin by hemog lobin opath ies (sick le cell anemi a, SC disea se, other s) or artif icial ly lower ed by decre ased red cell survi melinda (hemo lytic anemi as, blood loss, etc.) . Consi scout alter jose manuel testi ng or labor atory consu ltati on. Not Available [facility] [address] [place], [address], 02/12/2025 02:38:50 02/15/2002/16/2025 URINE CULTU RE urine culture See Note URINE CULTU RE Speci men Urine Pulido Top Tube CUL TURE* * 10,00 0-29, 999 cfu/m L Mixed uroge nital suzette Comme nts on Lab Id:[id number] Resul ts are consi stent with scottie l suzette and infec tious disea se guide lines would not sugge st furth er testi ng of this cultu re for routi ne patie nts. BMI - [facility] [address] [place] [address] Labor atory Direc tor: Kamilah nguyen, PhD, D([facility]) CLIA# [id number] Not Available [facility] [address] [place], [address], 02/16/2025 01:40:29 02/15/2002/14/2025 urina lysis , dipst ick Leukocytes Large Not Available [place] [facility] [address], [place], [address], 02/14/2025 15:45:49 02/15/2002/14/2025 urina lysis , dipst ick Nitrite negati ve Not Available [place] [facility] [address], [place], [address], 02/14/2025 15:45:49 02/15/20 25 02/14/2025 urina lysis , dipst ick Urobilinogen .2 Not Available [place] [facility] [address], [place], [address], 02/14/2025 15:45:49 02/15/2002/14/2025 urina lysis , dipst ick Protein 2000+ Not Available [place] [facility] [address], [place], [address], 02/14/2025 15:45:49 02/15/2002/14/2025 urina lysis , dipst ick pH 7.0 Not Available [place] [facility] [address], [place], [address], 02/14/2025 15:45:49 02/15/2002/14/2025 urina lysis , dipst ick Blood Large Not Available [place] [facility] [address], [place], [address], 02/14/2025 15:45:49 02/15/2002/14/2025 urina lysis , dipst ick Specific [place] 1.025 Not Available [place] [facility] [address], [place], [address], 02/14/2025 15:45:49 02/15/2002/14/2025 urina lysis , dipst ick Ketone Trace Not Available [place] [facility] [address], [place], [address], 02/14/2025 15:45:49 02/15/2002/14/2025 urina lysis , dipst ick Bilirubin Negati ve Not Available [place] [facility] [address], [place], [address], 02/14/2025 15:45:49 02/15/2002/14/2025 urina lysis , dipst ick Glucose Negati ve Not Available [place] [facility] [address], [place], [address], 02/14/2025 15:45:49 02/15/2002/14/2025 urina lysis , dipst ick Appearance Cloudy Not Available [place] [facility] [address], [place], [address], 02/14/2025 15:45:49 02/15/2002/14/2025 urina lysis , dipst ick Color Dark Yellow Not Available [place] [facility] [address], [place], [address], 02/14/2025 15:45:49 02/26/2002/25/2025 urina lysis , dipst ick Leukocytes Negati ve Not Available [place] [facility] [address], [place], [address], 02/25/2025 16:08:32 02/26/20 25 02/25/2025 urina lysis , dipst ick Nitrite negati ve Not Available [place] [facility] [address], [place], [address], 02/25/2025 16:08:32 02/26/20 25 02/25/2025 urina lysis , dipst ick Urobilinogen .2 Not Available [place] [facility] [address], [place], [address], 02/25/2025 16:08:32 02/26/20 25 02/25/2025 urina lysis , dipst ick Protein Negati ve Not Available [place] [facility] [address], [place], [address], 02/25/2025 16:08:32 02/26/20 25 02/25/2025 urina lysis , dipst ick pH 5.0 Not Available [place] [facility] [address], [place], [address], 02/25/2025 16:08:32 02/26/20 25 02/25/2025 urina lysis , dipst ick Blood Small Not Available [place] [facility] [address], [place], [address], 02/25/2025 16:08:32 02/26/20 25 02/25/2025 urina lysis , dipst ick Specific [place] 1.020 Not Available [place] [facility] [address], [place], [address], 02/25/2025 16:08:32 02/26/2002/25/2025 urina lysis , dipst ick Ketone Negati ve Not Available [place] [facility] [address], [place], [address], 02/25/2025 16:08:32 02/26/20 25 02/25/2025 urina lysis , dipst ick Bilirubin Negati ve Not Available [place] [facility] [address], [place], [address], 02/25/2025 16:08:32 02/26/20 25 02/25/2025 urina lysis , dipst ick Glucose Negati ve Not Available [place] [facility] [address], [place], [address], 02/25/2025 16:08:32 02/26/20 25 02/25/2025 urina lysis , dipst ick Appearance Slight ly Cloudy Not Available [place] [facility] [address], [place], [address], 02/25/2025 16:08:32 02/26/2002/25/2025 urina lysis , dipst ick Color Yellow Not Available [place] [facility] [address], [place], [address], 02/25/2025 16:08:32 02/26/2002/25/2025 urina lysis , dipst ick Leukocytes Small Not Available [place] [facility] [address], [place], [address], 02/25/2025 12:47:32 02/26/2002/25/2025 urina lysis , dipst ick Nitrite negati ve Not Available [place] [facility] [address], [place], [address], 02/25/2025 12:47:32 02/26/2002/25/2025 urina lysis , dipst ick Urobilinogen .2 Not Available [place] [facility] [address], [place], [address], 02/25/2025 12:47:32 02/26/2002/25/2025 urina lysis , dipst ick Protein Trace Not Available [place] [facility] [address], [place], [address], 02/25/2025 12:47:32 02/26/2002/25/2025 urina lysis , dipst ick pH 6.5 Not Available [place] [facility] [address], [place], [address], 02/25/2025 12:47:32 02/26/2002/25/2025 urina lysis , dipst ick Blood Non-He molyze d: Trace Not Available [place] [facility] [address], [place], [address], 02/25/2025 12:47:32 02/26/2002/25/2025 urina lysis , dipst ick Specific [place] 1.025 Not Available [place] [facility] [address], [place], [address], 02/25/2025 12:47:32 02/26/2002 0302/25/2025 urina lysis , dipst ick Ketone Trace Not Available [place] [facility] [address], [place], [address], 02/25/2025 12:47:32 02/26/2002/25/2025 urina lysis , dipst ick Bilirubin Negati ve Not Available [place] [facility] [address], [place], [address], 02/25/2025 12:47:32 02/26/2002/25/2025 urina lysis , dipst ick Glucose Negati ve Not Available [place] [facility] [address], [place], [address], 02/25/2025 12:47:32 02/26/2002/25/2025 urina lysis , dipst ick Appearance Slight ly Cloudy Not Available [place] [facility] [address], [place], [address], 02/25/2025 12:47:32 02/26/2002/25/2025 urina lysis , dipst ick Color Dark Yellow Not Available [place] [facility] [address], [place], [address], 02/25/2025 12:47:32 01/22/20 25 05/28/2024 XR, sravani stout No observ ation record ed. [email or web address] [address] [place], [place], [address], 02/07/2025 10:20:00 01/22/20 25 05/28/2024 RFsravani No observ ation record ed. [email or web address] [facility] [address], [place], [address], 01/25/2025 17:00:26 Result Notes None recorded. 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 Vivian garrido, [facility] 2 12:27:45 Mild neurocogn itive disorder 469600312 Active 2021 Yee Tan APRN [address], [place], [address], [facility] 3 22:19:17 Chronic back pain 052030670 Active 2021 Yee Tan APRN [address], [place], [address], [facility] 3 22:17:47 Dizziness 467162669 Completed 202105/25/2023 Yee Tan APRN [address], [place], [address], [facility] 4 13:15:53 Anxiety 46029869 Active 2021 Yee Tan APRN [address], [place], [address], [facility] 3 22:16:36 Gastroeso phageal reflux disease without esophagit is 757177351 Active 2021 Yee Tan APRN [address], [place], [address], [facility] 3 22:17:47 Arthritis 6063745 Active 2021 Yee Tan APRN [address], [place], [address], [facility] 3 22:17:47 Hyperlipi demia 11934601 Active 2021 Yee Tan APRN [address], [place], [address], [facility] 3 22:16:36 Major depressiv e disorder 041260398 Completed 202105/25/2023 Yee Tan APRN [address], [place], [address], [facility] 4 00:35:11 Memory impairmen t 397110785 Active 2021 Yee Tan APRN [address], [place], [address], [facility] 3 22:17:47 Pain of left thigh 741618374031 105 Completed 202105/23/2023 Yee Tan APRN [address], [place], [address], [facility] 4 20:24:45 Poor balance 569504210 Completed 202105/25/2023 Yee Tan APRN [address], [place], [address], [facility] 4 00:35:11 Difficult y walking 991405887 Completed 202105/25/2023 Yee Tan APRN [address], [place], [address], [facility] 4 00:35:11 Impacted cerumen in right ear [id number] 9103 Completed 202105/20/2022 Yee Tan APRN [address], [place], [address], [facility] 3 22:17:27 Postconcu ssion syndrome [id number] Completed 202205/20/2022 Yee Tan APRN [address], [place], [address], [facility] 3 22:17:27 Lumbar radiculop athy 714366543 Completed 202205/23/2023 Yee Tan APRN [address], [place], [address], [facility] 4 20:24:41 Spasm of back muscles [id number] Completed 202205/25/2023 Yee Tan APRN [address], [place], [address], [facility] 4 00:35:11 Pain of bilateral hip joints [id number] 37495 Completed 202205/25/2023 Yee Tan APRN [address], [place], [address], [facility] 4 00:35:11 Spasm [id number] Completed 202205/23/2023 Yee Tan APRN [address], [place], [address], [facility] 20:24:23 Screening mammograp hy Completed 202205/23/2023 Yee Tan APRN [address], [place], [address], [facility] 4 13:12:05 Adult health examinati on Completed 202205/23/2023 Yee Tan APRN [address], [place], [address], [facility] 4 13:12:36 Body mass index 30+ - obesity [id number] Completed 202205/25/2023 Yee Tan APRN [address], [place], [address], [facility] 4 14:09:40 Screening for malignant neoplasm of cervix Completed 202205/23/2023 Yee Tan APRN [address], [place], [address], [facility] 4 20:24:23 Gynecolog ic examinati on Completed 202205/23/2023 Yee Tan APRN [address], [place], [address], [facility] 4 20:24:23 Pain in right foot [id number] 107 Completed 202205/23/2023 Yee Tan APRN [address], [place], [address], [facility] 4 20:24:23 Pain of multiple joints [id number] Active 2023 Yee Tan APRN [address], [place], [address], [facility] 4 00:34:17 Insomnia 853074348 Active 2023 Yee Tan APRN [address], [place], [address], [facility] 4 00:34:17 Mild recurrent major depressio n 01925758 Active 2023 Yee Tan APRN [address], [place], [address], [facility] 4 00:34:17 Attention deficit hyperacti vity disorder, predomina ntly inattenti ve type 82314717 Active 2023 Yee Tan APRN [address], [place], [address], [facility] 4 00:34:17 Daytime hypersomn ia 098046654189 02 Active 2023 Yee Tan APRN [address], [place], [address], [facility] 4 14:09:40 Mild intermitt ent asthma 670421278 Active 2023 Yee JOHN Tan [address], [place], [address], [facility] 4 14:09:40 Body mass index 30+ - obesity 528943051 Active 2023 Yee GABRIELA TanN [address], [place], [address], [facility] 4 14:09:40 Influenza A virus present 651720553245 Completed 202301/21/2025 TRUPTI Rivera, SERVER PROGRAMMER [address], [place], [address], [facility] 5 11:34:50 Fever 157015639 Active 2023 Yee Tan APRN [address], [place], [address], [facility] 4 20:12:16 Bulging tympanic membrane 846173100 Active 2023 Yee Tan APRN [address], [place], [address], [facility] 4 13:15:51 Dizziness 144337912 Active 2023 Yee Tan APRN [address], [place], [address], [facility] 4 13:15:53 Screening mammograp hy Active 2023 Yee Tan APRN [address], [place], [address], [facility] 4 13:12:04 Adult health examinati on Active 2023 Yee Tan APRN [address], [place], [address], [facility] 4 13:12:36 Self-bath ing/hygie ne deficit 60514564 Active 2023 Yee Tan, SERVER PROGRAMMER [address], [place], [address], [facility] 4 13:17:34 Screening for osteoporo sis Active 2023 Yee Dominick, SERVER PROGRAMMER [address], [place], [address], [facility] 4 13:17:40 Essential hypertens ion 46058830 Active 2024 TRUPTI GONZALEZ N, SERVER PROGRAMMER [address], [place], [address], [facility] 5 11:36:15 Epigastri c pain 43948335 Active 2024 TRUPTI Rivera, SERVER PROGRAMMER [address], [place], [address], [facility] 5 23:09:50 Recurrent urinary tract infection 268761702 Active 2024 Sudha Purvis [facility], [facility] 5 12:50:22 Incontine nce 58280189 Active 2024 TRUPTI Rivera, SERVER PROGRAMMER [address], [place], [address], [facility] 5 12:35:12 Problem Notes None recorded. Procedures Surgical History Date Name Laterality Status Provider Name and Address Organization Details Recorded Time 04/22/20 22 Cerumen Removal completed Yee Tan APRN [address], [place], [address], [facility] 04/22/2022 14:54:28 03/09/20 12 implantation of neurostimulator in spine [facility] 04/13/2022 12:33:40 06/14/19 08 back fusion completed Vivian Mireles [facility] 04/13/2022 12:33:33 03/08/20 07 open reduction of trimalleolar fracture of ankle with internal fixation completed Vivian Mireles [facility] 04/13/2022 12:34:11 Imaging Results None recorded. Procedure Notes None recorded. Medical Equipment None Reported. Allergies Allergen ID Allergen Name Allergen Category Reaction Reaction Severity Criticality Documentation Date Start Date Code Code System Note Provider Name and Address Organization Details Recorded Time 211364 lisinopri l medicatio n cough Not available low 02/26/2025 11874 RxNorm TRUPTI LISA N, SERVER PROGRAMMER [address], [place], [address] [place] [address] 12:36:14 Medications Name Sig Start Date Stop [...] 15 mg tablet TAKE 1 TABLET DAILY 2024 active Not Available Not Available Not [...] ONE TABLET BY MOUTH EVERY 8 HOURS 12/06 /2022 completed Not Available Not Available Not Available [...] Not Available Not Available Vitals Date Recorded Systolic And Diastolic Provider Name and Address Organization Details Last Updated DateTime 02/04/2025 168/92 mm[Hg] TRUPTI LO APRN [address], [place], [address], [place] - [facility] 02/04/2025 15:53:20 Date Recorded Body height Respiratory rate Body mass index (BMI) Body weight Body temperature Heart rate Oxygen saturation Provider Name and Address Organization Details Last Updated DateTime 5 167.64 cm 18 /min 32.4 kg/m2 96239.0 7 g 98 [degF] 83 /min 98 % Reina Morton [facility] 5 15:04:04 Date Recorded Body height Body mass index (BMI) Body weight Heart rate Respiratory rate Body temperature Oxygen saturation Systolic And Diastolic Provider Name and Address Organization Details Last Updated DateTime 5 167.64 cm 32.3 kg/m2 45685.4 7 g 74 /min 18 /min 98.1 [degF] 98 % 148/76 mm[Hg] Reina Morton [facility] 5 15:28:36 Date Recorded Body height Heart rate Respiratory rate Body temperature Body mass index (BMI) Body weight Oxygen saturation Systolic And Diastolic Provider Name and Address Organization Details Last Updated DateTime 5 167.64 cm 65 /min 20 /min 97.8 [degF] 32.5 kg/m2 47916.5 g 98 % 132/84 mm[Hg] yan kemp [facility] 5 11:27:26 Date Recorded Body height Body mass index (BMI) Body weight Respiratory rate Body temperature Heart rate Oxygen saturation Systolic And Diastolic Provider Name and Address Organization Details Last Updated DateTime 5 167.64 cm 32 kg/m2 69812.2 9 g 19 /min 98 [degF] 68 /min 98 % 136/74 mm[Hg] Reina Morton [facility] 5 14:59:27 Date Recorded Body height Body mass index (BMI) Body weight Heart rate Respiratory rate Body temperature Oxygen saturation Systolic And Diastolic Provider Name and Address Organization Details Last Updated DateTime 5 167.64 cm 32.1 kg/m2 19586.8 8 g 68 /min 19 /min 98 [degF] 98 % 134/64 mm[Hg] Reina Morton [facility] 5 14:07:10 Social History Question Answer Notes LastModified by Organizat ion Details LastModified Time Tobacco Smoking Status Never Smoker Vivian Aline null, [facility] 04/13/2022 12:56:00 In The 14 Days Before Symptom Onset, Have You Had Close Contact With A Laboratory-confirm ed COVID-19 While That Case Was Ill? No Information n ot available 04/13/2022 In The 14 Days Before Symptom Onset, Have You Had Close Contact With A Person Who Is Under Investigation For COVID-19 While That Person Was Ill? No [email or web address] Information not available 04/13/2022 Have You Been To An Area Known To Be High Risk For COVID-19? Yes [email or web address] Information not available 04/13/2022 What Type Of Diet Are You Following? REGULAR [email or web address] Information n ot available 04/13/2022 What Was The Date Of Your Most Recent Tobacco Screening? 03/29/2025 Information not available 03/29/2025 Do You Use Your Seat Belt Or Car Seat Routinely? Yes [email or web address] Information not available 04/13/2022 Has Tobacco Cessation Counseling Been Provided? Yes [email or web address] Information not available 04/13/2022 On What Date Was Tobacco Cessation Counseling Provided? 03/29/2025 Information not available 03/29/2025 Sex: Female Functional Status Question Answer Note LastModified by Organizat ion Details LastModified Time Do you use any illicit or recreational drugs? No [email or web address] Information not available 04/13/2022 Do you or have you ever used any other forms of tobacco or nicotine? No [email or web address] Information not available 04/13/2022 What is your level of alcohol consumption? None [email or web address] Information not available 04/13/2022 What is your exercise level? None [email or web address] Information not available 04/13/2022 Mental Status Question Answer Note LastModified by Organization D etails LastModified Time Do you feel stressed (tense, restless, nervous, or anxious, or unable to sleep at night)? [id number] [email or web address] Information not available 04/13/2022 Family History Relationship Description Onset Age of this Age Resolved Age Notes LastModified by Organization Details LastModified Time Father Diabetes mellitus [email or web address] Not available 04/13 12:55:01 Father Family history of malignant neoplasm [email or web address] Not available 04/13 12:55:26 Mother Diabetes mellitus [email or web address] Not available 04/13 12:55:04 Mother Hypertensive disorder [email or web address] Not available 04/13 12:55:14 Medical History Condition Response Coronary Artery Disease N Gout N Kidney Stones N HX Inpatient Psych Admission N Depression N COPD N Congestive Heart Failure N Parkinson's N Anxiety Disorder N Muscle, Joint, or Bone Problems N Vision or Eye Problems N Arthritis N Serious Illness or Injuries N Seizures / Epilepsy N Blood Disease N Congenital Anomalies N Cancer N Stroke N Bladder or Kidney Problems N Hospital Admission other than N High Cholesterol N Liver Disease N Pulmonary Embolism / DVT N Fibromyalgia N Kidney Disease N Prostate N Ear or Hearing Problems N ADD or ADHD N Thyroid Problems N Skin Problems N Anemia N Constipation N Diabetes N Bedwetting N Eczema, Hives, or other skin conditions N Tuberculosis N Pacemaker / Defibrillator N Diverticulitis N Dementia N Asthma N Allergies N GERD / Reflux N Heart Disease N Hypertension N Osteoporosis N Chicken Pox N Gynecological History Statement/Question Response Menses Monthly Y Abnormal Pap N HPV Vaccine N Age at Menarche 14 Obstetrics History GPAL:G 0 P 0 0 0 0 Past Encounters Encounter ID Performer Location Encounter Start Date Encounter Closed Date Diagnosis/Indication Diagnosis SNOMED-CT Code Diagnosis ICD10 Code Diagnosis IMO Codes Diagnosis [facility] [id number] [facility] [address] [place] [address] 04/13/2022 12:09:56 04/13/2022 13:28:36 Dizziness 057564870 R42 Anxiety 90920063 F41.9 Essential hypertension 72047753 I10 Gastroesop hageal reflux disease without esophagitis 375690958 K21.9 Arthritis 9234080 M19.90 Hyperlipidemia 17150160 E78.5 Major depr essive disorder 399502353 F32.9 Memory impairment 440218 006 R41.3 Pain of left thigh 14284 13287 98958 M79.652 Poor balance 259404064 R 27.8 Difficulty walking 79257 2002 R26.2 [id number] [facility] [address] [place] [address] 04/22/2022 13:52:54 04/22/2022 15:12:42 Essential hypertension 63473230 I10 Impacted c erumen in right ear 2700424737 249539 H61.21 Arthritis 2630239 M19.90 Poor balance 675798004 R 27.8 [id number] Yee Tan [employer]ER PROGRAM[employer] [place] [facility] [address] [place], [place] [address] 05/19/2022 13:26:00 05/19/2022 13:27:59 Lumbar radiculopathy 632182759 M54.16 Xray ordered at [facility] to be completed tomorrow when getting other testing completed. Anxiety 07813668 F41.9 Patient taking alprazolam 2mg bid, prescibed by her psychiatri st, , who she is has appt to see later today. Hyperlipidemia 64638814 E78.5 Patient taking atorvastat in 10 mg daily, last labs within range, will continue medication . Patient also takes niacin 500mg daily. Major depr essive disorder 125751597 F32.9 Patient taking Trintellix 5 mg daily, alprazolam 2mg bid, and has marijuana card prescribed by her psychiatri st, Dr. Kelley, who she is has appt. to see later today. Dizziness 000512309 R42 Patient seeing Dr[address] Shellie boykin, also scheduled for MRI and EEG. Pain of left thigh 70930 21940 60171 M79.652 Xray ordered at [facility] to be completed tomorrow when getting other testing completed. ---Highly suspicion this related to radiculopa thy from lumbar area of spine. Mild neuro cognitive disorder 188895310 G31.[address] Shellie boykin, also scheduled for MRI and EEG. Memory impairment 929992 006 R41.3 Patient taking donepezil 23 mg daily, alprazolam 2mg bid, presrcibed by her psychiatri st, , who she is has appt to see later today.Alla ent seeing Dr. Shellie boykin, also scheduled for MRI and EEG. Poor balance 274019372 R 27.[address] Shellie boykin, also scheduled for MRI and EEG. Gastroesop hageal reflux disease without esophagitis 024036901 K21.9 Patient taking Protonix 40 mg daily with no further complaints of GERD, will continue medication . Arthritis 4899456 M19.90 Patient taking meloxicam 15 mg daily, arthritic pain controlled , will continue medication . Chronic back pain 228137 002 M54.9 Patient taking meloxicam 15 mg daily, and uses marijuana card-- pain controlled , will continue medication s. Difficulty walking 46898 [address] Shellie boykin, also scheduled for MRI and EEG. Amnestic disorder 136941 1 F04 Patient taking alprazolam 2mg bid, prescribed by her psychiatri st, , who she is has appt to see later today.Alla ent seeing Dr. Shellie boykin, also scheduled for MRI and EEG. Spasm of back muscles 20 3225870 M62.830 patient taking metaxalone 800 mg tid, which was prescribed by previous provider, Dr. Morenita Ley --uses on prn basis, has not been using. [id number] JOHN Matthew [facility] [address] [place] [address] 06/07/2022 11:24:29 06/07/2022 12:33:45 Chronic back pain 531661799 M54.9 Patient taking meloxicam 15 mg daily, and uses marijuana card-- pain controlled , will continue medication s. Lumbar radiculopathy [address]16 [address]'s ordered at [facility] Anxiety 45971790 F41.9 Patient taking alprazolam 2mg bid, prescibed by her psychiatri , , who she is has appt to see later today. Pain of bi lateral hip joints 0834426592 0734842 M25.551 M25.552 Poor balance 471596615 R 27.[address] Shellie boykin, also scheduled for MRI and EEG. Memory impairment 694184 006 R41.3 Patient taking donepezil 23 mg daily, alprazolam 2mg bid, presrcibed by her psychiatri , , who she is has appt to see later today.Alla ent seeing Dr. Shellie boykin, also scheduled for MRI and EEG. Mild neuro cognitive disorder 985418447 G31.[address] Shellie boykin, also scheduled for MRI and EEG. Major depr essive disorder 261174677 F32.9 Patient taking Trintellix 5 mg daily, alprazolam 2mg bid, and has marijuana card prescribed by her psychiatri st, Dr. Kelley, who she is has appt. to see later today. [id number] [facility] [address] [facility] [address] [place] [address] 08/27/2022 10:15:29 08/27/2022 11:49:47 Spasm 71616090 R25.2 Hyperlipidemia 68771583 E78.5 Patient taking atorvastat in 10 mg daily, last labs within range, will continue medication . Patient also takes niacin 500mg daily. Lumbar radiculopathy 128 748302 M54.16 Pain of bi lateral hip joints 8542101993 6050085 M25.551 M25.552 Amnestic disorder 246106 1 F04 Patient taking alprazolam 2mg bid, prescribed by her psychiatri st, , who she is has appt to see later today.Alla ent seeing neurologis t, Dr. Hensley, also scheduled for MRI and EEG. [id number] [place] [id number] [facility] [address] [place] [address] 08/30/2022 13:49:41 08/30/2022 14:45:28 Chronic back pain 456079506 M54.9 Anxiety 23639908 F41.9 Patient taking alprazolam 2mg bid, prescibed by her psychiatri st, , Gastroesop hageal reflux disease without esophagitis 185726066 K21.9 Hyperlipidemia 65526209 E78.5 Lumbar radiculopathy 128 569392 M54.16 [id number] [facility] [address] [facility] [address] [place] [address] 09/13/2022 15:59:06 09/13/2022 16:11:39 Lumbar radiculopathy 675233244 M54.16 [id number] [facility] [address] [facility] [address] [place] [address] 11/08/2022 13:16:13 11/08/2022 14:57:08 Screening mammography 68385449 Z12.31 Adult heal th examination 007436219 Z00.00 Body mass index 30+ - obesity 584028697 Z68.[id number] [place] [address] 11/26/2022 11:49:40 11/26/2022 11:54:44 Pain in right foot 2691822020 15642 M79.671 Anxiety 73592448 F41.9 Patient taking alprazolam 2mg bid, prescibed by her psychiatri , , Difficulty walking 06641 2002 R26.2 Patient seeing neurologtayler , Dr. Hensley, also scheduled for MRI and EEG. Poor balance 733070863 R 27.8 Patient seeing neurologtayler ayoub, Dr. Hensley, also scheduled for MRI and EEG. [id number] [place] [address] [place] [address] 11/29/2022 11:03:18 11/29/2022 11:32:26 Screening for malignant neoplasm of cervix 708950164 Z12.4 Gynecologi c examination 37486159 Z01.768 [id number] [place] [address] [place] [address] 12/06/2022 12:07:03 12/06/2022 12:14:13 Pain of left thigh 8184878725 52393 M79.652 Pain in right foot 28845 51739 05264 M79.671 Chronic back pain 121912 002 M54.9 [id number] [place] [address] [place] [address] 05/17/2023 15:02:34 05/17/2023 16:24:20 Amnestic disorder 4075368 F04 Patient seeing neurologDr. Shellie singh. Recommenda tions to begin Exelon but patient reluctant and wants to wait until next appointmen t with psychiatrDr Allie mullins.Pat ient taking donepezil 23 mg daily prescribed by Dr. Kelley. Anxiety 30348005 F41.9 Patient taking alprazolam 2mg bid, prescribed by her psychiatri Dr.Walden gopal, Gastroesop hageal reflux disease without esophagitis 002882795 K21.9 Patient is currently taking pantoprazo le 40mg daily with no negative side effects-- no further s/s or c/o of GERD. Will continue medication . Memory impairment 406407 006 R41.3 Patient taking donepezil 23 mg daily, alprazolam 2mg bid, prescribed by her psychiatrDr.Walden susanna, Patient seeing neurologDr. Shellie singh, also scheduled for MRI and EEG. Hyperlipidemia 32173245 E78.5 Patient is currently taking atorvastat in 10 mg daily with no negative side effects-- Will continue medication . Last labs on 08/27/2022. Labs in 2 months. Pain of mu ltiple joints 56179566 M25.50 Patient is currently taking meloxicam 15 mg daily with no negative side effects-- Will continue medication .Patient also smokes marijuana for pain relief. Insomnia 509186946 G47.0 9 Patient is currently taking eszopiclon e 3 mg nightly with no negative side effects-- Insomnia controlled --Will continue medication . Mild recur rent major depression 93021793 F33.0 Patient is currently taking Trintellix 5mg daily with no negative side effects-- Denies any depression issues---W ill continue medication . 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 Mild neuro cognitive disorder 606763902 G31.84 Patient seeing neurologDr. Shellie singh. Recommenda tions to begin Exelon but patient reluctant and wants to wait until next appointmen t with psychiatrDr Allie mullins. Chronic back pain 597180 002 M54.9 Patient is currently taking meloxicam 15 mg daily with no negative side effects-- Will continue medication .Patient also smokes marijuana for pain relief. Arthritis 7792387 M19.90 Patient taking meloxicam 15 mg daily, arthritic pain controlled , will continue medication . Daytime hypersomnia 3177 245124 8678 G47.19 Patient taking modafenil 100 mg daily, daytime hypersomni a improved, will continue medication . Mild inter mittent asthma 881679258 J45.20 Patient taking Dupixent 300 mg daily, arthritic pain controlled , will continue medication .Patient sees pulmonolog ist, Dr. Whalen. Body mass index 30+ - obesity 781223956 Z68.32 Discussed diet modificati ons, food choices and the importance of exercise daily. Patient states she will begin making changes. [id number] [facility] [address] [place] [address] 06/21/2023 17:11:31 06/23/2023 10:15:22 Fever 970998714 R50.9 Influenza A virus present 0842308901 08 J09.X2 Arthritis 6080245 M19.90 Patient taking meloxicam 15 mg daily, arthritic pain controlled , will continue medication . [id number] [address] [place] [address] 08/19/2023 12:04:08 08/19/2023 13:25:12 Dizziness 620639603 R42 [address] Shellie boykin, also scheduled for MRI and EEG. Bulging ty mpanic membrane 462204957 H73.[id number] [place] [address] 09/06/2023 15:14:39 09/06/2023 17:17:44 Bulging tympanic membrane 426008258 H73.899 resolved Dizziness 942417628 R[address] Shellie boykin, also scheduled for MRI and EEG. [id number] [address] [place] [address] 11/09/2023 14:36:12 11/09/2023 17:26:03 Adult health examination 208566457 Z00.00 Screening mammography 24 522949 Z12.31 Screening for osteoporosis 904188750 Z13.820 Memory impairment 486997 006 R41.3 Patient taking donepezil 23 mg daily, alprazolam 2mg bid, prescribed by her psychiatri stDr.Walden, Patient seeing Dr. Shellie boykin, also scheduled for MRI and EEG. Mild recur rent major depression 77958507 F33.0 Patient is currently taking Trintellix 5mg daily with no negative side effects-- Denies any depression issues---W ill continue medication . Mild neuro cognitive disorder 491129377 G31.84 Patient seeing neurologis tDr. Hensley. Recommenda tions to begin Exelon but patient reluctant and wants to wait until next appointmen t with psychiatri stDr Kelley. Self-bathi ng/hygiene deficit 96308962 Z74.[id number] [facility] [address] [place] [address] 01/24/2024 11:37:20 01/24/2024 13:12:06 Hyperlipidemia 20486665 E78.5 atorvastat in as prescribed ; lipid profile, CBC, CMP, TSH testing noted [id number] TRUPTI LO [facility] [address] [place] [address] 12/14/2024 13:59:48 12/14/2024 14:29:34 Hyperlipidemia 70909369 E78.5 1. Eat a variety of foods every day. Good choices include fruits, vegetables , whole grains, dried beans and peas, nuts and seeds, soy products, and fat-free or low-fat dairy products. 2. Replace butter, margarine, and hydrogenat ed or partially hydrogenat ed oils with olive and canola oils.3. Replace red meat with fish, poultry, and soy protein.4. Limit processed and packaged foods like chips, crackers, and cookies.5. Be physically active. Get at least 30 minutes of exercise on most days of the week. Walking is a good choice.6. Continue atorvastai n 10mg at hs. Gastroesop hageal reflux disease without esophagitis 313278831 K21.9 1. Try eating several meals rather than 2-3 large meals throughout the day.2. After you eat, wait 2 to 3 hours before you lie down.3. Avoid chocolate, mint, and alcohol as these can make GERD worse.4. Avoid known foods that worsen symptoms including spicy or acidic foods.5. Continue current prescripti on for GERD as ordered. Candidiasis of vagina 72 554667 B37.31 272604 1. Start the Diflucan as prescribed .2. Wear loose cotton clothing. Do not wear nylon or other fabric that holds body heat and moisture close to the skin.3. Try sleeping without underwear. 4. Do not scratch. Relieve itching with a cold pack or a cool bath.5. Do not wash your vaginal area more than once a day. Use plain water or a mild, unscented soap. Air-dry the vaginal area.6. Do not have sex until you have finished your treatment. 7. Do not douche.8. Follow-up in 5-7 days if symptoms have not improved or sooner for worsening of symptoms. Essential hypertension 49677050 I10 88524 1. Check blood pressure daily. Write these readings down and bring to next follow-up visit.2. RTC in 4 weeks or go to ED for any s/s including; chest pain, dyspnea, mental status changes, or weakness.3 . Educated on the importance of aerobic exercise at least 30 minutes daily to help reduce blood pressure.4 . Start Losartan 50mg daily. [id number] JOHN ALEMAN [facility] [address] [place] [address] 01/18/2025 15:16:17 01/18/2025 16:44:04 Essential hypertension 07915143 I10 64907 1. Check blood pressure daily. Write these readings down and bring to next follow-up visit.2. RTC in 2 weeks or go to ED for any s/s including; chest pain, dyspnea, mental status changes, or weakness.3 . Educated on the importance of aerobic exercise at least 30 minutes daily to help reduce blood pressure.4 . Recommend to start Losartan 50mg daily. F/u in 2 weeks to review. Hiatal hernia [id number] K 44.9 9218 1. Staff to request records.2. Send referral to provider of choice in [facility] once records/im aging are received. [id number] JOHN ALEMAN [facility] [address] [facility] [address] [place] [id number] 02/04/2025 14:50:50 02/04/2025 15:36:06 Essential hypertension [id number] I10 59590 1. Check blood pressure daily. Write these readings down and bring to next follow-up visit.2. RTC in 2 weeks or go to ED for any s/s including; chest pain, dyspnea, mental status changes, or weakness.3 . Educated on the importance of aerobic exercise at least 30 minutes daily to help reduce blood pressure.4 . Stop Losartan. Switch to Lisinopril 40mg daily. F/u in 2 weeks to review BP. Epigastric pain [id number] R10.13 R14.1 73603 1. F/u this week for h pylori, CBC, CMP, lipid, amylase, lipase, and A1c.2. F/u with surgeon as scheduled. Call for any worsening. 3. Continue pantoprazo le 40mg daily. [id number] JOHN ALEMAN [facility] [address] [place] [id number] 02/14/2025 15:12:23 02/14/2025 15:48:55 Acute cystitis [id number] N30.01 R30.0 3533298 1. Increase oral liquids. 2. May start/cont Azo for the dysuria. 3. Ensure that you complete the entire dose of antibiotic s. 4. FU in 10 days to have UA repeated. Culture sent today. Essential hypertension [id number] I10 44255 1. Improved, just start Lisinopril two days ago. Check blood pressure daily. Write these readings down and bring to next follow-up visit.2. Educated on the importance of aerobic exercise at least 30 minutes daily to help reduce blood pressure.4 . Continue Lisinopril 40mg daily. F/u in 10 days to review BP. [id number] JOHN ALEMAN [facility] [address] [place] [id number] 02/26/2025 11:03:34 02/26/2025 11:55:55 Incontinence 27357619 N39.46 R31.29 627227 1. Limit caffeine and alcoho as they [...] urology for worsening with hematuria. Essential hypertension [id number] I10 69993 1. Stop Lisinopril d/t cough. Start Amlodipine 10mg at hs. Check blood pressure daily. Write these readings down and bring to next follow-up visit.2. Educated on the importance of aerobic exercise at least 30 minutes daily to help reduce blood pressure.3 . F/u in 1 month. Hiatal hernia [id number] K 44.9 9218 1. F/u with surgeon as scheduled. 2. Trial d/c of Protonix.3 . F/u in 1 month. [id number] [facility] [address] [facility] [address] [place] [id number] 03/14/2025 14:46:26 03/14/2025 15:13:13 Essential hypertension [id number] I10 33870 1. Continue Amlodipine 10mg at hs. Check blood pressure daily. Write these readings down and bring to next follow-up visit.2. Educated on the importance of aerobic exercise at least 30 minutes daily to help reduce blood pressure.3 . Educated provided on BP parameters .4. F/u as scheduled. Sooner for worsening. [id number] [facility] [address] [place] [address] 03/29/2025 13:54:25 03/29/2025 14:22:26 Essential hypertension [id number] I10 44032 1. Continue Amlodipine 10mg at hs. Check blood pressure daily. Write these readings down and bring to next follow-up visit.2. Educated on the importance of aerobic exercise at least 30 minutes daily to help reduce blood pressure.3 . F/u in 3 months. Incontinence [id number] N3 9.46 R31.29 742890 1. Staff to request urology records. Hiatal hernia [id number] K 44.9 9218 1. F/u with surgeon as scheduled. 2. Doing well off protonix. Severe rec urrent major depression without psychotic features [id number] F33.2 [id number] 1. Continue Trintellix 5mg daily. Health Concerns Section Related Observation LastModified by Organization Detai ls LastModified Time None Recorded Concern Status LastModified by Organization Details LastModified Time None Recorded Advance Directives Directive None Recorded Payers Insurance Date Sequence Insurance Name Policy Number Policy Garcia Covered Member ID Garcia Member ID Guarantor Name 12/14/2024 MEDICARE A-AR: [employer] [facility] Sia Lakhani [id number] Sia Lakhani 04/12/2025 MEDICARE A-AR: [employer] [facility] Sia Lakhani [id number] Sia Lakhani 04/12/2025 1 MEDICARE-AR (MEDICARE) Sia Lakhani [id number] Sia Kim Shook 04/12/2025 2 FOR LIFE ( - MEDICARE SUPPLEMENT) Sai Lakhani [id number] Sia Lakhani Notes Date Note Type Note Provider Name and Address Organization Details Recorded Time 02/04/2025 text/html Patient is a 69 y/o female seen today for a f/u on BP. She has been taking the Losartan 25mg daily. She continues to feel that her hair and skin get too dry while taking the medication. She has not been on previous medications and agrees with switching. She denies any chest pain, dyspnea, headache, or visual changes with elevated BP. She is not fasting today, but will return for fasting labs. She has been scheduled for consultations with general surgeon at [facility] in [place] on 02/18/25 to discuss sliding hiatal hernia. She reports that for several years she has had gas build up and has to belch to relieve the pressure. She denies vomiting, melena, hematochezia, or constipation. She had an EGD several years ago, but is unsure of the results. TRUPTI LO, SERVER PROGRAMMER [address], [place], [phone], [facility] 02/04/2025 23:10:17 02/14/2025 text/html Patient is a 69 y/o female that presents to the clinic today for severe dysuria, urgency, frequency and hematuria. Symptoms initially started about a week ago, but worsened today. She has tried increasing fluid intake without improvement. She denies nausea, vomiting, flank pain, fever, or chills. TRUPTI LO, JOHN [address], [place], [phone], [facility] 02/14/2025 15:54:48 02/26/2025 text/html Patient is a 70 y/o female that presents to the clinic today for continued urgency, frequency, and urge incontinence. Recent urine culture was negative. She continues to have microscopy hematuria. Denies any flank pain, dysuria, or constipation. She had a previous consult for incontinence several years ago. A bladder mesh was recommended, but she opted not to do the procedure. She has continued to have incontinence, but over the last 3-4 months it has worsened. She wishes to consult with Dr. Ochoa for further treatment. She reports a dry cough with progressive worsening since starting the Lisinopril. She denies any dyspnea, wheezing, or chest pain. She reports a recent consult with Dr. Abby Barnes regarding the hiatal hernia. They have ordered additional imaging. She wishes to trial d/c the protonix. She has taken for years, and doesn't feel like it really helps. She denies reflux, but does have the constant belching she associates with the hiatal hernia. Gas-x helps with symptoms better than the protonix. TRUPTI LO, JOHN [address], [place], [phone], [facility] 02/26/2025 12:40:48 03/14/2025 text/html Patient is a 70 y/o [...] Dr. Ochoa regarding incontinence with urinary urgency. TRUPTI LO APRN [address], [place], [phone], [facility] 03/18/2025 13:31:45 03/29/2025 text/html Patient is a 70 y/o female seen today for a f/u on BP. She reports to be doing well on current medications. BP has been stable at home. She denies any dizziness or hypotension. She is scheduled for dustin cataract surgery next month. She did see urology and doesn't wish to return unless she just has to. She denies any dysuria, hematuria, or flank pain. TRUPTI LO, SERVER PROGRAMMER [address], [place], [phone], [facility] 03/29/2025 15:40:23 OBGyn Episode No OBEpisode recorded.
--- OUTSIDE RECORDS SUMMARY | 2025-04-13 13:48 | XMS_ITS | Continuity of Care Document ---
Author Organization [facility], [facility] Address [address] [place] [address] Assessment No assessment recorded. Plan of Treatment Reminders Order Date Submit Date Provider Last Modified By Organization Details Last Modified Time Details Appointments Office Visit 15 2024 11:30A Blank Rivera EDITORIAL CLERK Not available Not available Not available Follow Up 15 2025 01:00P Blank Rivera APRN Not available Not available Not available Lab None recorded. Referral None recorded. Procedures None recorded. Surgeries None recorded. Imaging None recorded. Medication Orders amlodipin e 10 mg tablet 2024 025 [facility] [employer] [facility], [address] [place] [address], [address], 03/29/2025 14:22:39 Patient TargetsNo targets recorded. Patient Instructions Encounter Date Encounter Id Patient Instructions Last Modified By Organization Details Last Modified Time 03/29/2025 [id number] Patient discharged to self to home in stable condition. Follow up instructions given. ritika Not available 03/29/2025 14:22:21 Reason for Referral None Reported. 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 Vivian garrido, [facility] 12:27:45 Mild neurocogn itive disorder 535709252 Active 2021 Yee Tan, JOHN [address], [place], [address], [facility] 3 22:19:17 Chronic back pain 732002461 Active 2021 Yee Tan APRN [address], [place], [address], [facility] 3 22:17:47 Dizziness 903472064 Completed 202105/25/2023 Yee Tan APRN [address], [place], [address], [facility] 4 13:15:53 Anxiety 96919409 Active 2021 Yee Tan APRN [address], [place], [address], [facility] 3 22:16:36 Gastroeso phageal reflux disease without esophagit is 242598955 Active 2021 Yee Tan APRN [address], [place], [address], [facility] 3 22:17:47 Arthritis 1077908 Active 2021 Yee Tan APRN [address], [place], [address], [facility] 3 22:17:47 Hyperlipi demia 85638057 Active 2021 Yee Tan APRN [address], [place], [address], [facility] 3 22:16:36 Major depressiv e disorder 338414848 Completed 202105/25/2023 Yee Tan APRN [address], [place], [address], [facility] 4 00:35:11 Memory impairmen t 714802222 Active 2021 Yee Tan APRN [address], [place], [address], [facility] 3 22:17:47 Pain of left thigh 855456442240 105 Completed 202105/23/2023 Yee Tan APRN [address], [place], [address], [facility] 4 20:24:45 Poor balance 751200029 Completed 202105/25/2023 Yee Tan APRN [address], [place], [address], [facility] 4 00:35:11 Difficult y walking 443252764 Completed 202105/25/2023 Yee Tan APRN [address], [place], [address], [facility] 4 00:35:11 Impacted cerumen in right ear 729711777756 9103 Completed 202105/20/2022 Yee Tan APRN [address], [place], [address], [facility] 3 22:17:27 Postconcu ssion syndrome 55313095 Completed 202205/20/2022 Yee Tan APRN [address], [place], [address], [facility] 3 22:17:27 Lumbar radiculop athy 533478925 Completed 202205/23/2023 Yee Tan APRN [address], [place], [address], [facility] 4 20:24:41 Spasm of back muscles 496359073 Completed 202205/25/2023 Yee Tan APRN [address], [place], [address], [facility] 4 00:35:11 Pain of bilateral hip joints 522141446529 53347 Completed 202205/25/2023 Yee Tan APRN [address], [place], [address], [facility] 4 00:35:11 Spasm 09889561 Completed 202205/23/2023 Yee Tan APRN [address], [place], [address], [facility] 4 20:24:23 Screening mammograp hy Completed 202205/23/2023 Yee Tan APRN [address], [place], [address], [facility] 4 13:12:05 Adult health examinati on Completed 202205/23/2023 Yee Tan APRN [address], [place], [address], [facility] 4 13:12:36 Body mass index 30+ - obesity 277958774 Completed 202205/25/2023 Yee Tan APRN [address], [place], [address], [facility] 4 14:09:40 Screening for malignant neoplasm of cervix Completed 202205/23/2023 Yee Tan APRN [address], [place], [address], [facility] 4 20:24:23 Gynecolog ic examinati on Completed 202205/23/2023 Yee Tan APRN [address], [place], [address], [facility] 4 20:24:23 Pain in right foot 667333367406 107 Completed 202205/23/2023 Yee Tan APRN [address], [place], [address], [facility] 4 20:24:23 Pain of multiple joints 75524685 Active 2023 Yee Tan APRN [address], [place], [address], [facility] 4 00:34:17 Insomnia 656333585 Active 2023 Yee Tan APRN [address], [place], [address], [facility] 4 00:34:17 Mild recurrent major depressio n 71629836 Active 2023 Yee Tan APRN [address], [place], [address], [facility] 4 00:34:17 Attention deficit hyperacti vity disorder, predomina ntly inattenti ve type 67943805 Active 2023 Yee Tan APRN [address], [place], [address], [facility] 4 00:34:17 Daytime hypersomn ia 146541419918 02 Active 2023 Yee Tan APRN [address], [place], [address], [facility] 4 14:09:40 Mild intermitt ent asthma 095414912 Active 2023 Yee Tan APRN [address], [place], [address], [facility] 4 14:09:40 Body mass index 30+ - obesity 078059804 Active 2023 Yee Tan APRN [address], [place], [address], [facility] 4 14:09:40 Influenza A virus present 059439611974 Completed 202301/21/2025 STEPHANIE Rivera, JOHN [address], [place], [address], [facility] 5 11:34:50 Fever 746913247 Active 2023 Yee Tan APRN [address], [place], [address], [facility] 4 20:12:16 Bulging tympanic membrane 978658181 Active 2023 Yee Tan APRN [address], [place], [address], [facility] 4 13:15:51 Dizziness 220548292 Active 2023 Yee Tan APRN [address], [place], [address], [facility] 4 13:15:53 Screening mammograp hy Active 2023 Yee Tan APRN [address], [place], [address], [facility] 4 13:12:04 Adult health examinati on Active 2023 Yee Tan APRN [address], [place], [address], [facility] 4 13:12:36 Self-bath ing/hygie ne deficit 58362985 Active 2023 Yee Tan APRN [address], [place], [address], [facility] 4 13:17:34 Screening for osteoporo sis Active 2023 Yee Tan APRN [address], [place], [address], [facility] 4 13:17:40 Essential hypertens ion 97399853 Active 2024 STEPHANIE Rivera, EDITORIAL CLERK [address], [place], [address], [facility] 5 11:36:15 Epigastri c pain 78189667 Active 2024 STEPHANIE Rivera, EDITORIAL CLERK [address], [place], [address], [facility] 5 23:09:50 Recurrent urinary tract infection 434880134 Active 2024 Sudha Purvis [facility], [facility] 5 12:50:22 Incontine nce 24548467 Active 2024 STEPHANIE Rivera, EDITORIAL CLERK [address], [place], [address], [facility] 5 12:35:12 Problem Notes None recorded. Procedures Surgical History Date Name Laterality Status Provider Name and Address Organization Details Recorded Time 04/22/20 22 Cerumen Removal completed Yee Tan, EDITORIAL CLERK [address], [place], [address], [facility] 04/22/2022 14:54:28 03/09/20 12 implantation of neurostimulator in spine completed [facility] 04/13/2022 12:33:40 06/14/19 08 back fusion completed [facility] 04/13/2022 12:33:33 03/08/20 07 open reduction of trimalleolar fracture of ankle with internal fixation completed [facility] 04/13/2022 12:34:11 Imaging Results None recorded. Procedure Notes None recorded. Medical Equipment None Reported. Allergies Allergen ID Allergen Name Allergen Category Reaction Reaction Severity Criticality Documentation Date Start Date Code Code System Note Provider Name and Address Organization Details Recorded Time 743790 lisinopri l medicatio n cough Not available low 02/26/2025 78644 RxNorm STEPHANIE Rivera, EDITORIAL CLERK [address], [place], [address] [place] [address] 12:36:14 Medications Name Sig Start Date Stop [...] Updated DateTime 5 167.64 cm 32.1 kg/m2 33071.8 8 g 68 /min 19 /min 98 [degF] 98 % 134/64 mm[Hg] Reina Morton [facility] 14:07:10 Social History Question Answer Notes LastModified by Organizat ion Details LastModified Time Tobacco Smoking Status Never Smoker Vivian garrido, [facility] 04/13/2022 12:56:00 In The 14 Days Before Symptom Onset, Have You Had Close Contact With A Laboratory-confirm ed COVID-19 While That Case Was Ill? No Information n ot available 04/13/2022 In The 14 Days Before Symptom Onset, Have You Had Close Contact With A Person Who Is Under Investigation For COVID-19 While That Person Was Ill? No [email or web address] Information not available 04/13/2022 Have You Been To An Area Known To Be High Risk For COVID-19? Yes [email or web address] Information not available 04/13/2022 What Type Of Diet Are You Following? REGULAR [email or web address] Information n ot available 04/13/2022 What Was The Date Of Your Most Recent Tobacco Screening? 03/29/2025 Information not available 03/29/2025 Do You Use Your Seat Belt Or Car Seat Routinely? Yes [email or web address] Information not available 04/13/2022 Has Tobacco Cessation Counseling Been Provided? Yes [email or web address] Information not available 04/13/2022 On What Date Was Tobacco Cessation Counseling Provided? 03/29/2025 Information not available 03/29/2025 Sex: Female Functional Status Question Answer Note LastModified by Organizat ion Details LastModified Time Do you use any illicit or recreational drugs? No [email or web address] Information not available 04/13/2022 Do you or have you ever used any other forms of tobacco or nicotine? No [email or web address] Information not available 04/13/2022 What is your level of alcohol consumption? None Information not available 04/13/2022 What is your exercise level? None [email or web address] Information not available 04/13/2022 Mental Status Question Answer Note LastModified by Organization D etails LastModified Time Do you feel stressed (tense, restless, nervous, or anxious, or unable to sleep at night)? [id number] [email or web address] Information not available 04/13/2022 Family History Relationship Description Onset Age of this Age Resolved Age Notes LastModified by Organization Details LastModified Time Father Diabetes mellitus [email or web address] Not available 04/13 12:55:01 Father Family history of malignant neoplasm [email or web address] Not available 04/13 12:55:26 Mother Diabetes mellitus [email or web address] Not available 04/13 12:55:04 Mother Hypertensive disorder [email or web address] Not available 04/13 12:55:14 Medical History Condition Response Coronary Artery Disease N Gout N Kidney Stones N HX Inpatient Psych Admission N Depression N COPD N Congestive Heart Failure N Parkinson's N Anxiety Disorder N Muscle, Joint, or Bone Problems N Vision or Eye Problems N Arthritis N Serious Illness or Injuries N Blood Disease N Seizures / Epilepsy N Congenital Anomalies N Cancer N Stroke N Bladder or Kidney Problems N Hospital Admission other than N High Cholesterol N Liver Disease N Fibromyalgia N Pulmonary Embolism / DVT N Kidney Disease N Prostate N Ear or Hearing Problems N ADD or ADHD N Thyroid Problems N Skin Problems N Anemia N Constipation N Diabetes N Bedwetting N Eczema, Hives, or other skin conditions N Tuberculosis N Pacemaker / Defibrillator N Diverticulitis N Dementia N Asthma N Allergies N GERD / Reflux N Heart Disease N Hypertension N Chicken Pox N Osteoporosis N Gynecological History Statement/Question Response Menses Monthly Y Abnormal Pap N HPV Vaccine N Age at Menarche 14 Obstetrics History GPAL:G 0 P 0 0 0 0 Past Encounters Encounter ID Performer Location Encounter Start Date Encounter Closed Date Diagnosis/Indication Diagnosis SNOMED-CT Code Diagnosis ICD10 Code Diagnosis IMO Codes Diagnosis Note [id number] JOHN ALEMAN [facility] [address] [place] [address] 02/26/2025 11:03:34 02/26/2025 11:55:55 Incontinence 00748921 N39.46 R31.29 995005 1. Limit caffeine and alcoho as they [...] urology for worsening with hematuria. Essential hypertension 84151487 I10 05896 1. Stop Lisinopril d/t cough. Start Amlodipine 10mg at hs. Check blood pressure daily. Write these readings down and bring to next follow-up visit.2. Educated on the importance of aerobic exercise at least 30 minutes daily to help reduce blood pressure.3 . F/u in 1 month. Hiatal hernia 58759966 K 44.9 3118 1. F/u with surgeon as scheduled. 2. Trial d/c of Protonix.3 . F/u in 1 month. [id number] STEPHANIE LO [facility] [address] [place] [address] 03/14/2025 14:46:26 03/14/2025 15:13:13 Essential hypertension 92987619 I10 74095 1. Continue Amlodipine 10mg at hs. Check blood pressure daily. Write these readings down and bring to next follow-up visit.2. Educated on the importance of aerobic exercise at least 30 minutes daily to help reduce blood pressure.3 . Educated provided on BP parameters .4. F/u as scheduled. Sooner for worsening. [id number] STEPHANIE LO [facility] [address] [place] [address] 03/29/2025 13:54:25 03/29/2025 14:22:26 Essential hypertension 14366329 I10 92877 1. Continue Amlodipine 10mg at hs. Check blood pressure daily. Write these readings down and bring to next follow-up visit.2. Educated on the importance of aerobic exercise at least 30 minutes daily to help reduce blood pressure.3 . F/u in 3 months. Incontinence 62780043 N3 9.46 R31.29 [id number] 1. Staff to request urology records. Hiatal hernia 46251869 K 44.9 9218 1. F/u with surgeon as scheduled. 2. Doing well off protonix. 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 Continue Trintellix 5mg daily. Health Concerns Section Related Observation LastModified by Organization Detai ls LastModified Time None Recorded Concern Status LastModified by Organization Details LastModified Time None Recorded Payers Encounter Date Sequence Insurance Name Policy Number Policy Garcia Covered Member ID Garcia Member ID Guarantor Name 03/29/2025 1 [place] Sia Lakhani [id number] Sia Lakhani 03/29/2025 2 FOR LIFE ( - MEDICARE SUPPLEMENT) Sia Lakhani [id number] Sia Lakhani Notes Date Note Type Note Provider Name and Address Organization Details Recorded Time 03/29/2025 text/html Patient is a 70 y/o [...] denies any dysuria, hematuria, or flank pain. STEPHANIE LO, EDITORIAL CLERK [address], [place], [address], [facility] 03/29/2025 15:40:23 OBGyn Episode No OBEpisode recorded.
--- OUTSIDE RECORDS SUMMARY | 2025-04-13 13:48 | XMS_ITS | Continuity of Care Document ---
Author Organization [facility], [facility] Address [address] [place] [address] Assessment No assessment recorded. Plan of Treatment Reminders Order Date Submit Date Provider Last Modified By Organization Details Last Modified Time Details Appointments Office Visit 15 2024 11:30A M TRUPTI GONZALEZ N, [facility] Not available Not available Not available Follow Up 15 2025 01:00P M TRUPTI GONZALEZ N, [facility]IOLOGY [facility] Not available Not available Not available Lab None recorded. Referral general surgeon referral 2024 025 [facility] General Surgery, [address], [place], [address], 03/14/2025 10:40:33 Procedures None recorded. Surgeries None recorded. Imaging None recorded. Medication Orders None recorded. Patient TargetsNo targets recorded. Patient Instructions Encounter Date Encounter Id Patient Instructions Last Modified By Organization Details Last Modified Time 01/18/2025 [id number] Patient discharged to self to home in stable condition. Follow up instructions given. ritika Not available 01/21/2025 11:39:23 Reason for Referral General Surgeon Referral for Hiatal hernia Referring Physician: Trupti Lo, Family Medicine, Encounter Date: 01/18/2025 Results Created Date Observation Date Name Description Value Unit Range Abnormal Flag Note LastModifiedBy Organization Detail LastModifiedTime 01/22/2005/28/2024 XR, esoph agram No observ ation record ed. [email or web address] [address] [place], [address], 02/07/2025 10:20:00 01/22/20 25 05/28/2024 RF, sravani stout No observ ation record ed. [email or web address] Nurse Practition[facility] [address], [place], [address], 01/25/2025 17:00:26 Result Notes None recorded. 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 2021 Vivian garrido, [place] [facility] 2 12:27:45 Mild neurocogn itive disorder 350469495 Active 2021 Yee Tan APRN [address], [place], [address], [facility] 3 22:19:17 Chronic back pain 269842507 Active 2021 Yee Tan APRN [address], [place], [address], [facility] 3 22:17:47 Dizziness 894309035 Completed 202105/25/2023 Yee Tan APRN [address], [place], [address], [facility] 4 13:15:53 Anxiety 38701969 Active 2021 Yee Tan APRN [address], [place], [address], [facility] 3 22:16:36 Gastroeso phageal reflux disease without esophagit is 532879622 Active 2021 Yee Tan APRN [address], [place], [address], [facility] 3 22:17:47 Arthritis 3393405 Active 2021 Yee Tan APRN [address], [place], [address], [place] - [facility] 3 22:17:47 Hyperlipi demia 75095586 Active 2021 Yee Tan APRN [address], [place], [address], [facility] - [facility] 3 22:16:36 Major depressiv e disorder 336816813 Completed 202105/25/2023 Yee Tan APRN [address], [place], [address], [facility] - [facility] 4 00:35:11 Memory impairmen t 762182281 Active 2021 Yee Tan APRN [address], [place], [address], [facility] 3 22:17:47 Pain of left thigh 531464569425 105 Completed 202105/23/2023 Yee Tan APRN [address], [place], [address], [facility] 4 20:24:45 Poor balance 400579784 Completed 202105/25/2023 Yee Tan APRN [address], [place], [address], [facility] 4 00:35:11 Difficult y walking 468184711 Completed 202105/25/2023 Yee Tan APRN [address], [place], [address], [facility] 4 00:35:11 Impacted cerumen in right ear 481251434662 9103 Completed 202105/20/2022 Yee Tan APRN [address], [place], [address], [facility] 3 22:17:27 Postconcu ssion syndrome 81262031 Completed 202205/20/2022 Yee Tan APRN [address], [place], [address], [facility] 3 22:17:27 Lumbar radiculop athy 229302106 Completed 202205/23/2023 Yee Tan APRN [address], [place], [address], [facility] 4 20:24:41 Spasm of back muscles 173054506 Completed 202205/25/2023 Yee Tan APRN [address], [place], [address], [facility] 4 00:35:11 Pain of bilateral hip joints 749113458624 46328 Completed 202205/25/2023 Yee Tan APRN [address], [place], [address], [facility] 4 00:35:11 Spasm 75725568 Completed 202205/23/2023 Yee Tan APRN [address], [place], [address], [facility] 4 20:24:23 Screening mammograp hy Completed 202205/23/2023 Yee Tan APRN [address], [place], [address], [facility] 4 13:12:05 Adult health examinati on Completed 202205/23/2023 Yee Tan APRN [address], [place], [address], [facility] 4 13:12:36 Body mass index 30+ - obesity 303737742 Completed 202205/25/2023 Yee Tan APRN [address], [place], [address], [facility] 4 14:09:40 Screening for malignant neoplasm of cervix Completed 202205/23/2023 Yee Tan APRN [address], [place], [address], [facility] 4 20:24:23 Gynecolog ic examinati on Completed 202205/23/2023 Yee Tan APRN [address], [place], [address], [facility] 4 20:24:23 Pain in right foot 752060756785 107 Completed 202205/23/2023 Yee Tan APRN [address], [place], [address], [facility] 4 20:24:23 Pain of multiple joints 68211138 Active 2023 Yee Tan APRN [address], [place], [address], [facility] 4 00:34:17 Insomnia 823575583 Active 2023 Yee Tan APRN [address], [place], [address], [facility] 4 00:34:17 Mild recurrent major depressio n 59336526 Active 2023 Yee Tan APRN [address], [place], [address], [facility] 4 00:34:17 Attention deficit hyperacti vity disorder, predomina ntly inattenti ve type 40229173 Active 2023 Yee Tan APRN [address], [place], [address], [place] [facility] 4 00:34:17 Daytime hypersomn ia 982942760385 02 Active 2023 Yee Tan APRN [address], [place], [address], [place] [facility] 4 14:09:40 Mild intermitt ent asthma 212766304 Active 2023 Yee Tan APRN [address], [place], [address], [place] [facility] 4 14:09:40 Body mass index 30+ - obesity 117467089 Active 2023 Yee Tan APRN [address], [place], [address], [facility] 4 14:09:40 Influenza A virus present 257212324904 Completed 202301/21/2025 TRUPTI Rivera APRN [address], [place], [address], [facility] - [facility] 5 11:34:50 Fever 284301886 Active 2023 Yee Tan APRN [address], [place], [address], [facility] 4 20:12:16 Bulging tympanic membrane 872511488 Active 2023 Yee Tan APRN [address], [place], [address], [facility] - [facility] 4 13:15:51 Dizziness 058065164 Active 2023 Yee Tan APRN [address], [place], [address], [facility] - [facility] 4 13:15:53 Screening mammograp hy Active 2023 Yee Tan APRN [address], [place], [address], [facility] 4 13:12:04 Adult health examinati on Active 2023 Yee JOHN Tan [address], [place], [address], [facility] 4 13:12:36 Self-bath ing/hygie ne deficit 67196933 Active 2023 Yee Tan APRN [address], [place], [address], [facility] 4 13:17:34 Screening for osteoporo sis Active 2023 Yee Tan APRN [address], [place], [address], [facility] 4 13:17:40 Essential hypertens ion 77723534 Active 2024 TRUPTI Rivera APRN [address], [place], [address], [facility] 5 11:36:15 Epigastri c pain 90700359 Active 2024 TRUPTI Rivera APRN [address], [place], [address], [facility] 5 23:09:50 Recurrent urinary tract infection 889865279 Active 2024 Sudha Purvis null, [facility] 5 12:50:22 Incontine nce 89482673 Active 2024 TRUPTI Rivera APRN [address], [place], [address], [facility] 5 12:35:12 Problem Notes None recorded. Procedures Surgical History Date Name Laterality Status Provider Name and Address Organization Details Recorded Time 04/22/20 22 Cerumen Removal completed Yee Tan APRN [address], [place], [address], [facility] 04/22/2022 14:54:28 03/09/20 12 implantation of neurostimulator in spine completed [facility] 04/13/2022 12:33:40 06/14/19 08 back fusion completed [facility] 04/13/2022 12:33:33 03/08/20 07 open reduction of trimalleolar fracture of ankle with internal fixation completed [facility] 04/13/2022 12:34:11 Imaging Results None recorded. Procedure Notes None recorded. Medical Equipment None Reported. Allergies Allergen ID Allergen Name Allergen Category Reaction Reaction Severity Criticality Documentation Date Start Date Code Code System Note Provider Name and Address Organization Details Recorded Time 144875 lisinopri l medicatio n cough Not available low 02/26/2025 91404 RxNorm TRUPTI GONZALEZ N, [facility] [address], [place], [address], [facility] 12:36:14 Medications Name Sig Start Date Stop [...] 8-0.225 gram tablet USE DIRECTED BY OFFICE 12/06 /2022 completed Not Available Not Available Not Available Vitals Date Recorded Body height Systolic And Diastolic Provider Name and Address Organization Details Last Updated DateTime 01/18/2025 167.64 cm 159/87 mm[Hg] TRUPTIRA PEREZSON, [facility]IOLOGY [facility] [address], [place], [address], [facility] 01/18/2025 16:25:41 Social History Question Answer Notes LastModified by [email or web address] Details LastModified Time Tobacco Smoking Status Never Smoker Vivian garrido, [facility] 04/13/2022 12:56:00 In The 14 Days Before Symptom Onset, Have You Had Close Contact With A Laboratory-confirm ed COVID-19 While That Case Was Ill? No [email or web address] Information n ot available 04/13/2022 In The 14 Days Before Symptom Onset, Have You Had Close Contact With A Person Who Is Under Investigation For COVID-19 While That Person Was Ill? No [email or web address] Information not available 04/13/2022 Have You Been To An Area Known To Be High Risk For COVID-19? Yes Information not available 04/13/2022 What Type Of Diet Are You Following? REGULAR Information n ot available 04/13/2022 What Was The Date Of Your Most Recent Tobacco Screening? 03/29/2025 Information not available 03/29/2025 Do You Use Your Seat Belt Or Car Seat Routinely? Yes [email or web address] Information not available 04/13/2022 Has Tobacco Cessation Counseling Been Provided? Yes [email or web address] Information not available 04/13/2022 On What Date Was Tobacco Cessation Counseling Provided? 03/29/2025 Information not available 03/29/2025 Sex: Female Functional Status Question Answer Note LastModified by Organizat ion Details LastModified Time Do you use any illicit or recreational drugs? No [email or web address] Information not available 04/13/2022 Do you or have you ever used any other forms of tobacco or nicotine? No [email or web address] Information not available 04/13/2022 What is your level of alcohol consumption? None [email or web address] Information not available 04/13/2022 What is your exercise level? None [email or web address] Information not available 04/13/2022 Mental Status Question Answer Note LastModified by Organization D etails LastModified Time Do you feel stressed (tense, restless, nervous, or anxious, or unable to sleep at night)? [id number] [email or web address] Information not available 04/13/2022 Family History Relationship Description Onset Age of this Age Resolved Age Notes LastModified by Organization Details LastModified Time Father Diabetes mellitus [email or web address] Not available 04/13 12:55:01 Father Family history of malignant neoplasm [email or web address] Not available 04/13 12:55:26 Mother Diabetes mellitus [email or web address] Not available 04/13 12:55:04 Mother Hypertensive disorder [email or web address] Not available 04/13 12:55:14 Medical History Condition [...] ICD10 Code Diagnosis IMO Codes Diagnosis Note [id number] [facility] [address] [place] [address] 01/18/2025 15:16:17 01/18/2025 16:44:04 Essential hypertension 34304294 I10 26789 1. Check blood pressure daily. Write these [...] in 2 weeks to review. Hiatal hernia [id number] K 44.9 4663 1. Staff to request records.2. [facility]. Health Concerns Section Related Observation LastModified by Organization Detai ls LastModified Time None Recorded Concern Status LastModified by Organization Details LastModified Time None Recorded Payers Encounter Date Sequence Insurance Name Policy Number Policy Garcia Covered Member ID Garcia Member ID Guarantor Name 01/18/2025 1 [place] Sia Lakhani [id number] Sia Lakhani 01/18/2025 2 FOR LIFE ( - MEDICARE SUPPLEMENT) Sia Lakhani [id number] Sia Lakhani Notes Date Note Type Note Provider Name and Address Organization Details Recorded Time 01/18/2025 text/html Patient is a 69 y/o female seen via audio and video communications for a f/u on BP and vaginitis. She has been taking the Losartan 50mg every other day and 25mg on the other days. She feels that her hair and skin get too dry if she takes the 50mg every day. She has not tried increasing to 50mg daily recently. No associated symptoms with the elevated blood pressure. She reports vaginitis has resolved. She does continue to have difficulty with air bubbles that get under her ribs. She reports a known history of a hiatal hernia that she would like a referral to [facility] to have repaired. She reports having imaging at [facility] recently showing the hiatal hernia. TRUPTI LO, [facility]IOLOGY [facility]ULT[facility] [address], [place], [address], [place] [facility] 01/21/2025 11:42:28 OBGyn Episode No OBEpisode recorded.
--- OUTSIDE RECORDS SUMMARY | 2025-04-13 13:49 | XMS_ITS | Continuity of Care Document ---
Author Organization [facility], [facility] Address [address] [place] [address] Assessment No assessment recorded. Plan of Treatment Reminders Order Date Submit Date Provider Last Modified By Organization Details Last Modified Time Details Appointments Office Visit 15 2024 11:30A M STEPHANIE Rivera, [employer]IE[employer]ANNING Not available Not available Not available Follow Up 15 2025 01:00P Blank GONZALEZ N, CHIEF OF PLANNING Not available Not available Not available Lab None recorded. Referral None recorded. Procedures None recorded. Surgeries None recorded. Imaging None recorded. Medication Orders lisinopri l 40 mg tablet 2024 025 HubCh[facility], [address] [place] [address], [id number], 02/26/2025 12:40:02 Patient TargetsNo targets recorded. Patient Instructions Encounter Date Encounter Id Patient Instructions Last Modified By Organization Details Last Modified Time 02/04/2025 [id number] Patient discharged to self to home in stable condition. Follow up instructions given. [email or web address] Not available 02/04/2025 23:09:58 Reason for Referral None Reported. Results Created Date Observation Date Name Description Value Unit Range Abnormal Flag Note LastModifiedBy Organization Detail LastModifiedTime 01/22/2005/28/2024 sravani GALAVIZ No observ ation record ed. [email or web address] [address] [place], [id number], 02/07/2025 10:20:00 01/22/2005/28/2024 RFsravani No observ ation record ed. [email or web address] Nurse Practitioners [facility] [address], [place], [address], 01/25/2025 17:00:26 Result Notes None recorded. 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 2021 Vivian garrido, [facility] 2 12:27:45 Mild neurocogn itive disorder 434798068 Active 2021 Yee Tan APRN [address], [place], [address], [facility] 3 22:19:17 Chronic back pain 613843198 Active 2021 Yee Tan APRN [address], [place], [address], [facility] 3 22:17:47 Dizziness 160167586 Completed 202105/25/2023 Yee Tan APRN [address], [place], [address], [facility] 4 13:15:53 Anxiety 55901456 Active 2021 Yee Tan APRN [address], [place], [address], [facility] 3 22:16:36 Gastroeso phageal reflux disease without esophagit is 451029590 Active 2021 Yee Tan APRN [address], [place], [address], [facility] 3 22:17:47 Arthritis 6834419 Active 2021 Yee Tan APRN [address], [place], [address], [facility] 3 22:17:47 Hyperlipi demia 92292430 Active 2021 Yee Tan APRN [address], [place], [address], [facility] 3 22:16:36 Major depressiv e disorder 456923455 Completed 202105/25/2023 Yee Tan APRN [address], [place], [address], [facility] 4 00:35:11 Memory impairmen t 115816120 Active 2021 Yee Tan APRN [address], [place], [address], [facility] 3 22:17:47 Pain of left thigh 408862147322 105 Completed 202105/23/2023 Yee Tan APRN [address], [place], [address], [facility] 4 20:24:45 Poor balance 355089649 Completed 202105/25/2023 Yee Tan APRN [address], [place], [address], [facility] 4 00:35:11 Difficult y walking 308732724 Completed 202105/25/2023 Yee Tan APRN [address], [place], [address], [facility] 4 00:35:11 Impacted cerumen in right ear 877012896563 9103 Completed 202105/20/2022 Yee Tan APRN [address], [place], [address], [facility] 3 22:17:27 Postconcu ssion syndrome 78299096 Completed 202205/20/2022 Yee Tan APRN [address], [place], [address], [facility] 3 22:17:27 Lumbar radiculop athy 322653799 Completed 202205/23/2023 Yee Tan APRN [address], [place], [address], [facility] 4 20:24:41 Spasm of back muscles 754834993 Completed 202205/25/2023 Yee Tan APRN [address], [place], [address], [facility] 4 00:35:11 Pain of bilateral hip joints 989151738138 47857 Completed 202205/25/2023 Yee Tan APRN [address], [place], [address], [facility] 4 00:35:11 Spasm 62102094 Completed 202205/23/2023 Yee Tan APRN [address], [place], [address], [facility] 4 20:24:23 Screening mammograp hy Completed 202205/23/2023 Yee Tan APRN [address], [place], [address], [facility] 4 13:12:05 Adult health examinati on Completed 202205/23/2023 Yee Tan APRN [address], [place], [address], [facility] 4 13:12:36 Body mass index 30+ - obesity 929955146 Completed 202205/25/2023 Yee Tan APRN [address], [place], [address], [place] [facility] 4 14:09:40 Screening for malignant neoplasm of cervix Completed 202205/23/2023 Yee JOHN Tan [address], [place], [address], [facility] 4 20:24:23 Gynecolog ic examinati on Completed 202205/23/2023 Yee FergusonJOHN freedman [address], [place], [address], [facility] 4 20:24:23 Pain in right foot 360719864224 107 Completed 202205/23/2023 Yee Tan APRN [address], [place], [address], [facility] 4 20:24:23 Pain of multiple joints 10363705 Active 2023 Yee Tan APRN [address], [place], [address], [facility] 4 00:34:17 Insomnia 905760015 Active 2023 Yee Tan APRN [address], [place], [address], [facility] 4 00:34:17 Mild recurrent major depressio n 15441398 Active 2023 Yee Tan APRN [address], [place], [address], [facility] 4 00:34:17 Attention deficit hyperacti vity disorder, predomina ntly inattenti ve type 66194925 Active 2023 Yee Tan APRN [address], [place], [address], [facility] 4 00:34:17 Daytime hypersomn ia 114175954758 02 Active 2023 Yee Tan APRN [address], [place], [address], [facility] 4 14:09:40 Mild intermitt ent asthma 321740641 Active 2023 Yee Tan APRN [address], [place], [address], [facility] 4 14:09:40 Body mass index 30+ - obesity 183071213 Active 2023 Yee Tan APRN [address], [place], [address], [facility] 4 14:09:40 Influenza A virus present 656264496016 Completed 202301/21/2025 STEPHANIE Rivera, JOHN [address], [place], [address], [facility] 5 11:34:50 Fever 825739718 Active 2023 Yee Tan APRN [address], [place], [address], [facility] 4 20:12:16 Bulging tympanic membrane 694678158 Active 2023 Yee Tan APRN [address], [place], [address], [facility] 4 13:15:51 Dizziness 452417802 Active 2023 Yee Tan APRN [address], [place], [address], [facility] 4 13:15:53 Screening mammograp hy Active 2023 Yee Tan APRN [address], [place], [address], [facility] 4 13:12:04 Adult health examinati on Active 2023 Yee Tan APRN [address], [place], [address], [facility] 4 13:12:36 Self-bath ing/hygie ne deficit 67314772 Active 2023 Yee Tan APRN [address], [place], [address], [facility] 4 13:17:34 Screening for osteoporo sis Active 2023 Yee Tan APRN [address], [place], [address], [facility] 4 13:17:40 Essential hypertens ion 16290740 Active 2024 STEPHANIE Rivera APRN [address], [place], [address], [facility] 5 11:36:15 Epigastri c pain 43750696 Active 2024 STEPHANIE Rivera APRN [address], [place], [address], [facility] 5 23:09:50 Recurrent urinary tract infection 502528409 Active 2024 Sudha garrido, [facility] 5 12:50:22 Incontine nce 84128581 Active 2024 STEPHANIE Rivera APRN [address], [place], [address], [facility] 5 12:35:12 Problem Notes None recorded. Procedures Surgical History Date Name Laterality Status Provider Name and Address Organization Details Recorded Time 04/22/20 22 Cerumen Removal completed Yee Tan APRN [address], [place], [address], [facility] 04/22/2022 14:54:28 11/01/20 12 implantation of neurostimulator in spine completed [facility] 04/13/2022 12:33:40 06/14/19 08 back fusion completed [facility] 04/13/2022 12:33:33 03/08/20 07 open reduction of trimalleolar fracture of ankle with internal fixation completed [facility] 04/13/2022 12:34:11 Imaging Results None recorded. Procedure Notes None recorded. Medical Equipment None Reported. Allergies Allergen ID Allergen Name Allergen Category Reaction Reaction Severity Criticality Documentation Date Start Date Code Code System Note Provider Name and Address Organization Details Recorded Time 628644 lisinopri l medicatio n cough Not available low 02/26/2025 53804 RxNorm STEPHANIE LISA N, CHIEF OF [employer]ANNING [address], [place], [address] [place] [address] 12:36:14 Medications Name Sig Start Date Stop [...] TABLET UNDER THE TONGUE ONCE DAILY NEEDED 12/06 /2022 completed Not Available Not Available [...] Details Last Updated DateTime 02/04/2025 168/92 mm[Hg] STEPHANIE LO , [employer]ING [address], [place], [address], [facility] 02/04/2025 15:53:20 Date Recorded Body height Respiratory rate Body mass index (BMI) Body weight Body temperature Heart rate Oxygen saturation Provider Name and Address Organization Details Last Updated DateTime 167.64 cm 18 /min 32.4 kg/m2 00096.0 7 g 98 [degF] 83 /min 98 % Reina Selene [facility] 15:04:04 Social History Question Answer Notes LastModified by Location Details LastModified Time Tobacco Smoking Status Never Smoker Vivian garrido, [facility] 04/13/2022 12:56:00 In The 14 Days Before Symptom Onset, Have You Had Close Contact With A Laboratory-confirm ed COVID-19 While That Case Was Ill? No [email or web address] Information n ot available 04/13/2022 In The 14 Days Before Symptom Onset, Have You Had Close Contact With A Person Who Is Under Investigation For COVID-19 While That Person Was Ill? No [email or web address] Information not available 04/13/2022 Have You Been To An Area Known To Be High Risk For COVID-19? Yes [email or web address] Information not available 04/13/2022 What Type Of Diet Are You Following? REGULAR [email or web address] Information n ot available 04/13/2022 What Was The Date Of Your Most Recent Tobacco Screening? 03/29/2025 Information not available 03/29/2025 Do You Use Your Seat Belt Or Car Seat Routinely? Yes [email or web address] Information not available 04/13/2022 Has Tobacco Cessation Counseling Been Provided? Yes [email or web address] Information not available 04/13/2022 On What Date Was Tobacco Cessation Counseling Provided? 03/29/2025 Information not available 03/29/2025 Sex: Female Functional Status Question Answer Note LastModified by Organizat ion Details LastModified Time Do you use any illicit or recreational drugs? No Information not available 04/13/2022 Do you or have you ever used any other forms of tobacco or nicotine? No [email or web address] Information not available 04/13/2022 What is your level of alcohol consumption? None Information not available 04/13/2022 What is your exercise level? None [email or web address] Information not available 04/13/2022 Mental Status Question Answer Note LastModified by Organization D etails LastModified Time Do you feel stressed (tense, restless, nervous, or anxious, or unable to sleep at night)? [id number] [email or web address] Information not available 04/13/2022 Family History Relationship Description Onset Age of this Age Resolved Age Notes LastModified by Organization Details LastModified Time Father Diabetes mellitus [email or web address] Not available 04/13 12:55:01 Father Family history of malignant neoplasm [email or web address] Not available 04/13 12:55:26 Mother Diabetes mellitus [email or web address] Not available 04/13 12:55:04 Mother Hypertensive disorder [email or web address] Not available 04/13 12:55:14 Medical History Condition [...] ICD10 Code Diagnosis IMO Codes Diagnosis Note [id number] [facility] [address] [place] [address] 01/18/2025 15:16:17 01/18/2025 16:44:04 Essential hypertension 11933832 I10 31574 1. Check blood pressure daily. Write these [...] in 2 weeks to review. Hiatal hernia 88961118 K 44.9 5418 1. Staff to request records.2. Send referral to provider of choice in [facility] once records/im aging are received. [id number] [facility] [address] [place] [address] 02/04/2025 14:50:50 02/04/2025 15:36:06 Essential hypertension 80991927 I10 90768 1. Check blood pressure daily. Write these [...] 2 weeks to review BP. Epigastric pain 77699115 R10.13 R14.1 99127 1. F/u this week for h pylori, CBC, CMP, lipid, amylase, lipase, and A1c.2. F/u with surgeon as scheduled. Call for any worsening. 3. Continue pantoprazo le 40mg daily. Health Concerns Section Related Observation LastModified by Organization Detai ls LastModified Time None Recorded Concern Status LastModified by Organization Details LastModified Time None Recorded Payers Encounter Date Sequence Insurance Name Policy Number Policy Garcia Covered Member ID Garcia Member ID Guarantor Name 02/04/2025 1 [place] Sia Lakhani [id number] Sia Lakhani 02/04/2025 2 FOR LIFE ( - MEDICARE SUPPLEMENT) Sia Lakhani [id number] Sia Lakhani Notes Date Note Type Note [...] scheduled for consultations with general surgeon at [facility] in [place] on 02/18/25 to discuss sliding hiatal hernia. She reports that for several years she has had gas build up and has to belch to relieve the pressure. She denies vomiting, melena, hematochezia, or constipation. She had an EGD several years ago, but is unsure of the results. STEPHANIE LO, CHIEF OF PLANNING [address], [place], [address], [facility] 02/04/2025 23:10:17 OBGyn Episode No OBEpisode recorded.
--- OUTSIDE RECORDS SUMMARY | 2025-04-13 13:49 | XMS_ITS | Continuity of Care Document ---
Author Organization [facility] Address [address] [place] [address] Assessment No assessment recorded. Plan of Treatment Reminders Order Date Submit Date Provider Last Modified By Organization Details Last Modified Time Details Appointments Office Visit 15 2024 11:30A M STEPHANIE GONZALEZ N, BELT REPAIRER Not available Not available Not available Follow Up 15 2025 01:00P M STEPHANIE GONZALEZ N, BELT REPAIRER Not available Not available Not available Lab urinalysi s, dipstick 2024 025 [facility], [address], [place], [address], 02/14/2025 17:28:02 culture, urine 2024 025 [facility] [address] [place], [address], 02/16/2025 01:40:29 Referral None recorded. Procedures None recorded. Surgeries None recorded. Imaging None recorded. Medication Orders nitrofura ntoin monohydra te/macroc rystals 100 mg capsule 2024 025 [facility] [place], [address], [place], [address], 02/26/2025 11:37:45 Patient TargetsNo targets recorded. Patient Instructions Encounter Date Encounter Id Patient Instructions Last Modified By Organization Details Last Modified Time 02/14/2025 [id number] Patient discharged to self to home in stable condition. Follow up instructions given. [email or web address] Not available 02/14/2025 15:54:09 Reason for Referral None Reported. Results Created Date Observation Date Name Description Value Unit Range Abnormal Flag Note LastModifiedBy Organization Detail LastModifiedTime 02/07/2002/07/2025 COMP METAB OLIC PANEL sodium 141 mEq/L 135-14 6 Not Available [facility] [address] [place], [address], 02/07/2025 17:38:21 02/07/2002/07/2025 COMP METAB OLIC PANEL potassium 4.0 mEq/L 3.5-5. 4 Not Available [facility] [address] [place], [address], 02/07/2025 17:38:21 02/07/2002/07/2025 COMP METAB OLIC PANEL chloride 103 mEq/L 95-107 Not Available [facility] [address] [place], [address], 02/07/2025 17:38:21 02/07/2002/07/2025 COMP METAB OLIC PANEL carbon dioxide 20 mEq/L 19-31 Not Available [facility] [address] [place], [address], 02/07/2025 17:38:21 02/07/2002/07/2025 COMP METAB OLIC PANEL anion gap 18 mEq/L 7-23 Not Available [facility] [address] [place], [address], 02/07/2025 17:38:21 02/07/20 25 02/07/2025 COMP METAB OLIC PANEL glucose non-fasting 135 mg/dL 70-139 Not Available [facility] [address] [place], [address], 02/07/2025 17:38:21 02/07/20 25 02/07/2025 COMP METAB OLIC PANEL urea nitrogen (BUN) 12 mg/dL 8-23 Not Available [facility] [address] [place], [place], [address], 02/07/2025 17:38:21 02/07/20 25 02/07/2025 COMP METAB OLIC PANEL creatinine 0.67 mg/dL 0.60-1 .30 Not Available [facility] [address] [place] [address], [place], [address], 02/07/2025 17:38:21 02/07/20 25 02/07/2025 COMP METAB OLIC PANEL 2020 CKD-epi eGFR-cr 95 mL/mi n/1.7 3m'2 >59 Not Available [facility] [address] [place], [place], [address], 02/07/2025 17:38:21 02/07/20 25 02/07/2025 COMP METAB OLIC PANEL BUN/creatini ne ratio 18 ratio Not Available [facility] [address] [place], [place], [address], 02/07/2025 17:38:21 02/07/20 25 02/07/2025 COMP METAB OLIC PANEL calcium total 9.3 mg/dL 8.5-10 .5 Not Available [facility] [address] [place], [address], 02/07/2025 17:38:21 02/07/20 25 02/07/2025 COMP METAB OLIC PANEL protein total 6.6 g/dL 6.1-8. 3 Not Available [facility] [address] [place], [address], 02/07/2025 17:38:21 02/07/20 25 02/07/2025 COMP METAB OLIC PANEL albumin 4.5 g/dL 3.5-5. 2 Not Available [facility] [address] [place], [address], 02/07/2025 17:38:21 02/07/20 25 02/07/2025 COMP METAB OLIC PANEL globulin 2.1 g/dL 1.7-4. 3 Not Available [facility] [address] [place], [address], 02/07/2025 17:38:21 02/07/20 25 02/07/2025 COMP METAB OLIC PANEL A/G ratio 2.1 ratio 0.9-2. 8 Not Available [facility] [address] [facility] [place], [address], 02/07/2025 17:38:21 02/07/20 25 02/07/2025 COMP METAB OLIC PANEL bilirubin total 1.2 mg/dL 0.0-1. 2 Not Available [facility] [address] [facility] [place], [address], 02/07/2025 17:38:21 02/07/20 25 02/07/2025 COMP METAB OLIC PANEL alkaline phosphatase 85 U/L 40-142 Not Available [facility] [address] [facility] [place], [address], 02/07/2025 17:38:21 02/07/20 25 02/07/2025 COMP METAB OLIC PANEL AST (SGOT) 20 U/L 9-40 Not Available [facility] [address] [facility] [place], [address], 02/07/2025 17:38:21 02/07/20 25 02/07/2025 COMP METAB OLIC PANEL ALT (SGPT) 19 U/L 5-40 Comme nt for COMP METAB OLIC PANEL Fasti ng statu s not provi ded. If the patie nt faste d the appro priat e gluco se refer ence range is 70-99 mg/dL . Not Available [facility] [address] [place], [address], 02/07/2025 17:38:21 02/07/20 25 02/07/2025 AMYLA SE amylase 27 U/L 28-100 low Not Available [facility] [address] [facility] [place], [address], 02/07/2025 17:38:22 02/07/20 25 02/07/2025 LIPAS E lipase 46 U/L 13-60 Not Available [facility] [address] [facility] [place], [address], 02/07/2025 17:38:22 02/07/20 25 02/07/2025 H PYLOR I BREAT H TEST H pylori breath index 0.2 % Not Available [facility] [address] [facility] [place], [address], 02/07/2025 17:38:23 02/07/2002/07/2025 H PYLOR I BREAT H TEST H pylori breath test Negati ve negati ve Comme nt for H PYLOR I BREAT H TEST Inter preta tion: Negat yeny: <3.0% Posit yeny: >=3.0 % Not Available [facility] [address] [facility] [place], [address], 02/07/2025 17:38:23 02/07/20 25 02/07/2025 CBC WITH DIFFE RENTI AL WBC 5.3 K/uL 4.0-11 .0 Not Available [facility] [address] [place], [address], 02/07/2025 17:38:23 02/07/20 25 02/07/2025 CBC WITH DIFFE RENTI AL RBC 4.87 M/uL 4.00-5 .50 Not Available [facility] [address] [place], [address], 02/07/2025 17:38:23 02/07/20 25 02/07/2025 CBC WITH DIFFE RENTI AL hemoglobin 14.6 g/dL 12.0-1 6.0 Not Available [facility] [address], [place], [address], 02/07/2025 17:38:23 02/07/20 25 02/07/2025 CBC WITH DIFFE RENTI AL hematocrit 43.9 % 36.0-4 8.0 Not Available [facility] [address] [place], [place], [address], 02/07/2025 17:38:23 02/07/20 25 02/07/2025 CBC WITH DIFFE RENTI AL MCV 90.1 fL 78.0-1 02.0 Not Available [facility] [address] [place], [address], 02/07/2025 17:38:23 02/07/20 25 02/07/2025 CBC WITH DIFFE RENTI AL MCH 30.0 pg 25.0-3 5.0 Not Available [facility] [address] [place], [address], 02/07/2025 17:38:23 02/07/20 25 02/07/2025 CBC WITH DIFFE RENTI AL MCHC 33.3 g/dL 30.0-3 8.0 Not Available [facility] [address] [place], [address], 02/07/2025 17:38:23 02/07/20 25 02/07/2025 CBC WITH DIFFE RENTI AL RDW 13.0 % 11.5-1 6.0 Not Available [facility] [address] [place], [place], [address], 02/07/2025 17:38:23 02/07/20 25 02/07/2025 CBC WITH DIFFE RENTI AL platelet count 275 K/uL 150-45 0 Not Available [facility] [address] [place], [address], 02/07/2025 17:38:23 02/07/20 25 02/07/2025 CBC WITH DIFFE RENTI AL abs neutrophils 2.5 K/uL 1.8-7. 0 Not Available [facility] [address] [place], [address], 02/07/2025 17:38:23 02/07/20 25 02/07/2025 CBC WITH DIFFE RENTI AL abs lymphocytes 2.2 K/uL 1.0-4. 0 Not Available [facility] [address] [place], [address], 02/07/2025 17:38:23 02/07/20 25 02/07/2025 CBC WITH DIFFE RENTI AL abs monocytes 0.3 K/uL 0.1-1. 1 Not Available [facility] [address] [place], [address], 02/07/2025 17:38:23 02/07/20 25 02/07/2025 CBC WITH DIFFE RENTI AL abs eosinophils 0.2 K/uL 0.0-0. 5 Not Available [facility] [address] [place], [address], 02/07/2025 17:38:23 02/07/20 25 02/07/2025 CBC WITH DIFFE RENTI AL abs basophils 0.1 K/uL 0.0-0. 3 Not Available [facility] [address] [place], [address], 02/07/2025 17:38:23 02/07/20 25 02/07/2025 CBC WITH DIFFE RENTI AL abs immature grans 0.0 K/uL 0.0-0. 1 Not Available [facility] [address] [place], [place], [address], 02/07/2025 17:38:23 02/07/20 25 02/07/2025 CBC WITH DIFFE RENTI AL neutrophils 47.9 % Not Available [facility] [address] [place], [address], 02/07/2025 17:38:23 02/07/20 25 02/07/2025 CBC WITH DIFFE RENTI AL lymphocytes 40.6 % Not Available [facility] [address] [place], [address], 02/07/2025 17:38:23 02/07/20 25 02/07/2025 CBC WITH DIFFE RENTI AL monocytes 6.6 % Not Available [facility] [address] [place], [address], 02/07/2025 17:38:23 02/07/20 25 02/07/2025 CBC WITH DIFFE RENTI AL eosinophils 3.4 % Not Available [facility] [address] [place], [address], 02/07/2025 17:38:23 02/07/20 25 02/07/2025 CBC WITH DIFFE RENTI AL basophils 1.3 % Not Available [facility] [address] [place], [address], 02/07/2025 17:38:23 02/07/20 25 02/07/2025 CBC WITH DIFFE RENTI AL immature grans 0.2 % Not Available [facility] [address] [place], [place], [address], 02/07/2025 17:38:23 02/07/2002/07/2025 CBC WITH DIFFE EMY AL nucleated RBCs <1.0 /100_ WBCs <1 Not Available [facility] [address] [place], [address], 02/07/2025 17:38:23 02/07/2002/11/2025 MANUA L ADD-O N date of collection 2024 Not Available [facility] [address] [place], [address], 02/12/2025 02:38:49 02/07/2002/11/2025 MANUA L ADD-O N test set codes C114 Not Available [facility] [address] [place], [address], 02/12/2025 02:38:49 02/07/2002/11/2025 MANUA L ADD-O N test(s) requested HEMOGL OBIN A1C Not Available [facility] [address] [place], [address], 02/12/2025 02:38:49 02/07/2002/11/2025 MANUA L ADD-O N submitted DX code(s) R73.9 Not Available [facility] [address] [place], [address], 02/12/2025 02:38:49 02/07/2002/11/2025 MANUA L ADD-O N requested by REINA Abreu LPN Not Available [facility] [address] [place], [address], 02/12/2025 02:38:49 02/07/2002/11/2025 MANUA L ADD-O N date requested 2024 Not Available [facility] [address] [facility] [address] [place], [place], [address], 02/12/2025 02:38:49 02/07/2002/11/2025 MANUA L ADD-O N signature Signat ure: ___ Not Available [facility] [address] [facility] [address] [place], [place], [address], 02/12/2025 02:38:49 02/07/2002/11/2025 MANUA L ADD-O N [...] requi red for all tests reque sted. Lonnie e sign and fax a copy of this state ment for our recor ds to [phone] withi n 24 hours . Not Available [facility] [address] [facility] [place], [address], 02/12/2025 02:38:49 02/07/2002/12/2025 HEMOG LOBIN A1C hemoglobin A1C 6.1 % 4.2-5. 6 high Not Available [facility] [address] [facility] [address] [place], [place], [address], 02/12/2025 02:38:50 02/07/2002/12/2025 HEMOG LOBIN A1C mean [...] labor atory consu ltati on. Not Available [facility] [address] [place], [address], 02/12/2025 02:38:50 02/15/2002/16/2025 URINE CULTU RE urine culture See Note URINE CULTU RE Speci men Urine Pulido Top Tube CUL TURE* * 10,00 0-29, 999 cfu/m L Mixed uroge nital suzette Comme nts on Lab Id:34 [id number] Resul ts are consi stent with scottie l suzette and infec tious disea se guide lines would not sugge st [facility] er testi ng of this cultu re for routi ne patie nts. [facility] [address] [place] [address] Labor atory Direc tor: Kamilah nguyen, PhD, D([facility]) CLIA# [id number] Not Available [facility] [address] [facility], [place], [address], 02/16/2025 01:40:29 02/15/2002/14/2025 urina lysis , dipst ick Leukocytes Large Not Available [place] [facility] [address], [place], [address], 02/14/2025 15:45:49 02/15/20 25 02/14/2025 urina lysis , dipst ick Nitrite negati ve Not Available [facility] [address], [place], [address], 02/14/2025 15:45:49 02/15/2002/14/2025 urina lysis , dipst ick Urobilinogen .2 Not Available [place] [facility] [address], [place], [address], 02/14/2025 15:45:49 02/15/2002/14/2025 urina lysis , dipst ick Protein 2000+ Not Available [place] [facility] [address], [place], [address], 02/14/2025 15:45:49 02/15/2002/14/2025 urina lysis , dipst ick pH 7.0 Not Available [place] [facility] [address], [place], [address], 02/14/2025 15:45:49 02/15/2002/14/2025 urina lysis , dipst ick Blood Large Not Available [place] [facility] [address], [place], [address], 02/14/2025 15:45:49 02/15/2002/14/2025 urina lysis , dipst ick Specific [place] 1.025 Not Available [place] [facility] [address], [place], [address], 02/14/2025 15:45:49 02/15/2002/14/2025 urina lysis , dipst ick Ketone Trace Not Available [place] [facility] [address], [place], [address], 02/14/2025 15:45:49 02/15/2002/14/2025 urina lysis , dipst ick Bilirubin Negati ve Not Available [place] [facility] [address], [place], [address], 02/14/2025 15:45:49 02/15/2002/14/2025 urina lysis , dipst ick Glucose Negati ve Not Available [facility] [address], [place], [address], 02/14/2025 15:45:49 02/15/2002/14/2025 urina lysis , dipst ick Appearance Cloudy Not Available [place] [facility] [address], [place], [address], 02/14/2025 15:45:49 02/15/2002/14/2025 urina lysis , dipst ick Color Dark Yellow Not Available [place] [facility] [address], [place], [address], 02/14/2025 15:45:49 01/22/2005/28/2024 XR, esoph agram No observ ation record ed. [email or web address] [address] [place], [address], 02/07/2025 10:20:00 01/22/20 25 05/28/2024 RF, esoph kerryam No observ ation record ed. [place] [id number] [facility] [address] [place], [address], 01/25/2025 17:00:26 Result Notes None recorded. 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 2021 Vivian garrido [place] - [facility] 2 12:27:45 Mild neurocogn itive disorder 237504801 Active 2021 Yee Tan, JOHN [address], [place], [address], [facility] 3 22:19:17 Chronic back pain 567780725 Active 2021 Yee Tan APRN [address], [place], [address], [facility] 3 22:17:47 Dizziness 865083700 Completed 202105/25/2023 Yee Tan APRN [address], [place], [address], [facility] 4 13:15:53 Anxiety 70911234 Active 2021 Yee Tan APRN [address], [place], [address], [facility] 3 22:16:36 Gastroeso phageal reflux disease without esophagit is 550501095 Active 2021 Yee Tan APRN [address], [place], [address], [facility] 3 22:17:47 Arthritis 6221946 Active 2021 Yee Tan APRN [address], [place], [address], [facility] 3 22:17:47 Hyperlipi demia 36926964 Active 2021 Yee Tan APRN [address], [place], [address], [facility] 3 22:16:36 Major depressiv e disorder 583584661 Completed 202105/25/2023 Yee Tan APRN [address], [place], [address], [facility] 4 00:35:11 Memory impairmen t 525485250 Active 2021 Yee Tan APRN [address], [place], [address], [facility] 3 22:17:47 Pain of left thigh 707974512822 105 Completed 202105/23/2023 Yee Tan APRN [address], [place], [address], [facility] 4 20:24:45 Poor balance 891711025 Completed 202105/25/2023 Yee Tan APRN [address], [place], [address], [facility] 4 00:35:11 Difficult y walking 763914440 Completed 202105/25/2023 Yee Tan APRN [address], [place], [address], [facility] 4 00:35:11 Impacted cerumen in right ear 908028591069 9103 Completed 202105/20/2022 Yee Tan APRN [address], [place], [address], [facility] 3 22:17:27 Postconcu ssion syndrome 24027867 Completed 202205/20/2022 Yee Tan APRN [address], [place], [address], [facility] 3 22:17:27 Lumbar radiculop athy 347954768 Completed 202205/23/2023 Yee Tan APRN [address], [place], [address], [facility] 4 20:24:41 Spasm of back muscles 200242773 Completed 202205/25/2023 Yee Tan APRN [address], [place], [address], [facility] 4 00:35:11 Pain of bilateral hip joints 233945620523 45829 Completed 202205/25/2023 Yee Tan APRN [address], [place], [address], [facility] 4 00:35:11 Spasm 47790784 Completed 202205/23/2023 Yee Tan APRN [address], [place], [address], [facility] 4 20:24:23 Screening mammograp hy Completed 202205/23/2023 Yee Tan APRN [address], [place], [address], [facility] 4 13:12:05 Adult health examinati on Completed 202205/23/2023 Yee Tan APRN [address], [place], [address], [facility] 4 13:12:36 Body mass index 30+ - obesity 679383931 Completed 202205/25/2023 Yee Tan APRN [address], [place], [address], [facility] 4 14:09:40 Screening for malignant neoplasm of cervix Completed 202205/23/2023 Yee Tan APRN [address], [place], [address], [facility] 4 20:24:23 Gynecolog ic examinati on Completed 202205/23/2023 Yee Tan APRN [address], [place], [address], [facility] 4 20:24:23 Pain in right foot 948443409011 107 Completed 202205/23/2023 Yee Tan APRN [address], [place], [address], [facility] 4 20:24:23 Pain of multiple joints 44560720 Active 2023 Yee Tan APRN [address], [place], [address], [facility] 4 00:34:17 Insomnia 666984418 Active 2023 Yee Tan APRN [address], [place], [address], [facility] 4 00:34:17 Mild recurrent major depressio n 47838840 Active 2023 Yee Tan APRN [address], [place], [address], [facility] 4 00:34:17 Attention deficit hyperacti vity disorder, predomina ntly inattenti ve type 84994041 Active 2023 Yee Tan APRN [address], [place], [address], [facility] 4 00:34:17 Daytime hypersomn ia 415360375824 02 Active 2023 Yee Tan APRN [address], [place], [address], [facility] 4 14:09:40 Mild intermitt ent asthma 113392155 Active 2023 Yee Tan APRN [address], [place], [address], [facility] 4 14:09:40 Body mass index 30+ - obesity 902940603 Active 2023 Yee Tan APRN [address], [place], [address], [facility] 4 14:09:40 Influenza A virus present 404148441275 Completed 202301/21/2025 STEPHANIE Rivera, JOHN [address], [place], [address], [facility] 5 11:34:50 Fever 393616162 Active 2023 Yee Tan APRN [address], [place], [address], [facility] 4 20:12:16 Bulging tympanic membrane 380062466 Active 2023 Yee Tan APRN [address], [place], [address], [facility] 4 13:15:51 Dizziness 248356671 Active 2023 Yee Tan APRN [address], [place], [address], [facility] 4 13:15:53 Screening mammograp hy Active 2023 Yee Tan APRN [address], [place], [address], [facility] 4 13:12:04 Adult health examinati on Active 2023 Yee Tan APRN [address], [place], [address], [facility] 4 13:12:36 Self-bath ing/hygie ne deficit 55258258 Active 2023 Yee Tan APRN [address], [place], [address], [facility] 4 13:17:34 Screening for osteoporo sis Active 2023 Yee Tan APRN [address], [place], [address], [facility] 4 13:17:40 Essential hypertens ion 42592889 Active 2024 STEPHANIE GONZALEZ N, BELT REPAIRER [address], [place], [address], [facility] 5 11:36:15 Epigastri c pain 98309679 Active 2024 STEPHANIERA PEREZKATHERIN N, BELT REPAIRER [address], [place], [address], [facility] 5 23:09:50 Recurrent urinary tract infection 059283256 Active 2024 Sudha Purvis null, [facility] 5 12:50:22 Incontine nce 22706162 Active 2024 STEPHANIE PEREZKATHERIN N, BELT REPAIRER [address], [place], [address], [facility] 5 12:35:12 Problem Notes None recorded. Procedures Surgical History Date Name Laterality Status Provider Name and Address Organization Details Recorded Time 04/22/20 22 Cerumen Removal completed Yee Tan, BELT REPAIRER [address], [place], [address], [facility] 04/22/2022 14:54:28 03/09/20 12 implantation of neurostimulator in spine completed [facility] 04/13/2022 12:33:40 06/14/19 08 back fusion completed [facility] 04/13/2022 12:33:33 03/08/20 07 open reduction of trimalleolar fracture of ankle with internal fixation completed [facility] 04/13/2022 12:34:11 Imaging Results None recorded. Procedure Notes None recorded. Medical Equipment None Reported. Allergies Allergen ID Allergen Name Allergen Category Reaction Reaction Severity Criticality Documentation Date Start Date Code Code System Note Provider Name and Address Organization Details Recorded Time 325763 lisinopri l medicatio n cough Not available low 02/26/2025 99859 RxNorm STEPHANIE Rivera, BELT REPAIRER [address], [place], [address] [place] [address] 12:36:14 Medications Name Sig Start Date Stop [...] Updated DateTime 5 167.64 cm 32.3 kg/m2 99702.4 7 g 74 /min 18 /min 98.1 [degF] 98 % 148/76 mm[Hg] Reina Morton [facility] 5 15:28:36 Social History Question Answer Notes LastModified by Organizat ion Details LastModified Time Tobacco Smoking Status Never Smoker Vivian garrido, [facility] 04/13/2022 12:56:00 In The 14 Days Before Symptom Onset, Have You Had Close Contact With A Laboratory-confirm ed COVID-19 While That Case Was Ill? No [email or web address] Information n ot available 04/13/2022 In The 14 Days Before Symptom Onset, Have You Had Close Contact With A Person Who Is Under Investigation For COVID-19 While That Person Was Ill? No [email or web address] Information not available 04/13/2022 Have You Been To An Area Known To Be High Risk For COVID-19? Yes [email or web address] Information not available 04/13/2022 What Type Of Diet Are You Following? REGULAR [email or web address] Information n ot available 04/13/2022 What Was The Date Of Your Most Recent Tobacco Screening? 03/29/2025 Information not available 03/29/2025 Do You Use Your Seat Belt Or Car Seat Routinely? Yes [email or web address] Information not available 04/13/2022 Has Tobacco Cessation Counseling Been Provided? Yes Information not available 04/13/2022 On What Date Was Tobacco Cessation Counseling Provided? 03/29/2025 Information not available 03/29/2025 Sex: Female Functional Status Question Answer Note LastModified by Organizat ion Details LastModified Time Do you use any illicit or recreational drugs? No [email or web address] Information not available 04/13/2022 Do you or have you ever used any other forms of tobacco or nicotine? No [email or web address] Information not available 04/13/2022 What is your level of alcohol consumption? None [email or web address] Information not available 04/13/2022 What is your exercise level? None [email or web address] Information not available 04/13/2022 Mental Status Question Answer Note LastModified by Organization D etails LastModified Time Do you feel stressed (tense, restless, nervous, or anxious, or unable to sleep at night)? [id number] Information not available 04/13/2022 Family History Relationship Description Onset Age of this Age Resolved Age Notes LastModified by Organization Details LastModified Time Father Diabetes mellitus [email or web address] Not available 04/13 12:55:01 Father Family history of malignant neoplasm [email or web address] Not available 04/13 12:55:26 Mother Diabetes mellitus [email or web address] Not available 04/13 12:55:04 Mother Hypertensive disorder [email or web address] Not available 04/13 12:55:14 Medical History Condition [...] ICD10 Code Diagnosis IMO Codes Diagnosis Note [id number] [facility] [address] [place] [id number] 01/18/2025 15:16:17 01/18/2025 16:44:04 Essential hypertension [id number] I10 14532 1. Check blood pressure daily. Write these [...] in 2 weeks to review. Hiatal hernia [id number] K 44.9 9218 1. Staff to request records.2. Send referral to provider of choice in [facility] once records/im aging are received. [id number] [facility] [address] [place] [id number] 02/04/2025 14:50:50 02/04/2025 15:36:06 Essential hypertension [id number] I10 51031 1. Check blood pressure daily. Write these [...] 2 weeks to review BP. Epigastric pain [id number] R10.13 R14.1 68749 1. F/u this week for h pylori, CBC, CMP, lipid, amylase, lipase, and A1c.2. F/u with surgeon as scheduled. Call for any worsening. 3. Continue pantoprazo le 40mg daily. [id number] [facility] [address] [place] [id number] 02/14/2025 15:12:23 02/14/2025 15:48:55 Acute cystitis 28133611 N30.01 R30.0 3016246 1. Increase oral liquids. 2. May start/cont Azo for the dysuria. 3. Ensure that you complete the entire dose of antibiotic s. 4. FU in 10 days to have UA repeated. Culture sent today. Essential hypertension [id number] I10 16271 1. Improved, just start Lisinopril two days ago. Check blood pressure daily. Write these readings down and bring to next follow-up visit.2. Educated on the importance of aerobic exercise at least 30 minutes daily to help reduce blood pressure.4 . Continue Lisinopril 40mg daily. F/u in 10 days to review BP. Health Concerns Section Related Observation LastModified by Organization Detai ls LastModified Time None Recorded Concern Status LastModified by Organization Details LastModified Time None Recorded Payers Encounter Date Sequence Insurance Name Policy Number Policy Garcia Covered Member ID Garcia Member ID Guarantor Name 02/14/2025 1 [place] (MEDICARE) Sia Lakhani [id number] Sia Lakhani 02/14/2025 2 FOR LIFE ( - MEDICARE SUPPLEMENT) Sia Lakhani [id number] Sia Lakhani Notes Date Note Type Note Provider Name and Address Organization Details Recorded Time 02/14/2025 text/html Patient is a 69 y/o female that presents to the clinic today for severe dysuria, urgency, frequency and hematuria. Symptoms initially started about a week ago, but worsened today. She has tried increasing fluid intake without improvement. She denies nausea, vomiting, flank pain, fever, or chills. STEPHANIE LO, [employer] [address], [place], [address], [facility] 02/14/2025 15:54:48 OBGyn Episode No OBEpisode recorded.
--- OUTSIDE RECORDS SUMMARY | 2025-04-13 13:49 | XMS_ITS | Continuity of Care Document ---
Author Organization [facility], [facility] Address [address] [place] [address] Assessment No assessment recorded. Plan of Treatment Reminders Order Date Submit Date Provider Last Modified By Organization Details Last Modified Time Details Appointments Office Visit 15 2024 11:30A M TRUPTI GONZALEZ N, [employer] Not available Not available Not available Follow Up 15 2025 01:00P M TRUPTI GONZALEZ N, [employer] Not available Not available Not available Lab None recorded. Referral urologist referral 2024 025 YEISON Ochoa MD, [address], [place], [address], 04/01/2025 20:18:39 Procedures None recorded. Surgeries None recorded. Imaging None recorded. Medication Orders amlodipin e 10 mg tablet 2024 YEISON [facility] [place], [address], [place], [address], 03/29/2025 14:40:14 Patient TargetsNo targets recorded. Patient Instructions Encounter Date Encounter Id Patient Instructions Last Modified By Organization Details Last Modified Time 02/26/2025 [id number] Patient discharged to self to home in stable condition. Follow up instructions given. ritika Not available 02/26/2025 12:39:43 Reason for Referral Urologist Referral for Incon tinence Referring Physician: Trupti Lo, Family Medicine, Encounter Date: 02/26/2025 Results Created Date Observation Date Name Description Value Unit Range Abnormal Flag Note LastModifiedBy Organization Detail LastModifiedTime 02/07/2002/07/2025 COMP METAB OLIC PANEL sodium 141 mEq/L 135-14 6 Not Available [facility] [address] [place], [address], 02/07/2025 17:38:21 02/07/20 25 02/07/2025 COMP METAB OLIC PANEL potassium 4.0 mEq/L 3.5-5. 4 Not Available [facility] [address], [place], [address], 02/07/2025 17:38:21 02/07/2002/07/2025 COMP METAB OLIC PANEL chloride 103 mEq/L 95-107 Not Available [facility] [address], [place], [address], 02/07/2025 17:38:21 02/07/2002/07/2025 COMP METAB OLIC PANEL carbon dioxide 20 mEq/L 19-31 Not Available [facility] [address], [place], [address], 02/07/2025 17:38:21 02/07/20 25 02/07/2025 COMP METAB OLIC PANEL anion gap 18 mEq/L 7-23 Not Available [facility] [address] [place], [address], 02/07/2025 17:38:21 02/07/20 25 02/07/2025 COMP METAB OLIC PANEL glucose non-fasting 135 mg/dL 70-139 Not Available [facility] [address], [place], [address], 02/07/2025 17:38:21 02/07/20 25 02/07/2025 COMP METAB OLIC PANEL urea nitrogen (BUN) 12 mg/dL 8-23 Not Available [facility] [address] [place], [address], 02/07/2025 17:38:21 02/07/20 25 02/07/2025 COMP METAB OLIC PANEL creatinine 0.67 mg/dL 0.60-1 .30 Not Available [facility] [address] [place], [address], 02/07/2025 17:38:21 02/07/20 25 02/07/2025 COMP METAB OLIC PANEL 2020 CKD-epi eGFR-cr 95 mL/mi n/1.7 3m'2 >59 Not Available [facility] [address] [place], [place], [address], 02/07/2025 17:38:21 02/07/20 25 02/07/2025 COMP METAB OLIC PANEL BUN/creatini ne ratio 18 ratio Not Available [facility] [address] [place], [place], [address], 02/07/2025 17:38:21 02/07/20 25 02/07/2025 COMP METAB OLIC PANEL calcium total 9.3 mg/dL 8.5-10 .5 Not Available [facility] [address] [place], [place], [address], 02/07/2025 17:38:21 02/07/20 25 02/07/2025 COMP METAB OLIC PANEL protein total 6.6 g/dL 6.1-8. 3 Not Available [facility] [address] [place], [place], [address], 02/07/2025 17:38:21 02/07/20 25 02/07/2025 COMP METAB OLIC PANEL albumin 4.5 g/dL 3.5-5. 2 Not Available [facility] [address] [place], [place], [address], 02/07/2025 17:38:21 02/07/20 25 02/07/2025 COMP METAB OLIC PANEL globulin 2.1 g/dL 1.7-4. 3 Not Available [facility] [address] [place], [address], 02/07/2025 17:38:21 02/07/20 25 02/07/2025 COMP METAB OLIC PANEL A/G ratio 2.1 ratio 0.9-2. 8 Not Available [facility] [address] [facility] [place], [address], 02/07/2025 17:38:21 02/07/20 25 02/07/2025 COMP METAB OLIC PANEL bilirubin total 1.2 mg/dL 0.0-1. 2 Not Available [facility] [address] [facility] [place], [address], 02/07/2025 17:38:21 02/07/20 25 02/07/2025 COMP METAB OLIC PANEL alkaline phosphatase 85 U/L 40-142 Not Available [facility] [address] [facility] [place], [address], 02/07/2025 17:38:21 02/07/20 25 02/07/2025 COMP METAB OLIC PANEL AST (SGOT) 20 U/L 9-40 Not Available [facility] [address] [facility] [place], [address], 02/07/2025 17:38:21 02/07/20 25 02/07/2025 COMP METAB OLIC PANEL ALT (SGPT) 19 U/L 5-40 Comme nt for COMP METAB OLIC PANEL Fasti ng statu s not provi ded. If the patie nt faste d the appro priat e gluco se refer ence range is 70-99 mg/dL . Not Available [facility] [address] [facility] [place], [address], 02/07/2025 17:38:21 02/07/20 25 02/07/2025 AMYLA SE amylase 27 U/L 28-100 low Not Available [facility] [address] [place], [address], 02/07/2025 17:38:22 02/07/20 25 02/07/2025 LIPAS E lipase 46 U/L 13-60 Not Available [facility] [address] [place], [address], 02/07/2025 17:38:22 02/07/2002/07/2025 H PYLOR I BREAT H TEST H pylori breath index 0.2 % Not Available [facility] [address] [place], [address], 02/07/2025 17:38:23 02/07/2002/07/2025 H PYLOR I BREAT H TEST H pylori breath test Negati ve negati ve Comme nt for H PYLOR I BREAT H TEST Inter preta tion: Negat yeny: <3.0% Posit yeny: >=3.0 % Not Available [facility] [address] [place], [address], 02/07/2025 17:38:23 02/07/20 25 02/07/2025 CBC WITH DIFFE RENTI AL WBC 5.3 K/uL 4.0-11 .0 Not Available [facility] [address] [place], [address], 02/07/2025 17:38:23 02/07/20 25 02/07/2025 CBC WITH DIFFE RENTI AL RBC 4.87 M/uL 4.00-5 .50 Not Available [facility] [address] [place], [address], 02/07/2025 17:38:23 02/07/20 25 02/07/2025 CBC WITH DIFFE RENTI AL hemoglobin 14.6 g/dL 12.0-1 6.0 Not Available [facility] [address] [place], [place], [address], 02/07/2025 17:38:23 02/07/20 25 02/07/2025 CBC WITH DIFFE RENTI AL hematocrit 43.9 % 36.0-4 8.0 Not Available [facility] [address] [place], [address], 02/07/2025 17:38:23 02/07/20 25 02/07/2025 CBC WITH DIFFE RENTI AL MCV 90.1 fL 78.0-1 02.0 Not Available [facility] [address] [place], [address], 02/07/2025 17:38:23 02/07/20 25 02/07/2025 CBC WITH DIFFE RENTI AL MCH 30.0 pg 25.0-3 5.0 Not Available [facility] [address] [place], [address], 02/07/2025 17:38:23 02/07/20 25 02/07/2025 CBC WITH DIFFE RENTI AL MCHC 33.3 g/dL 30.0-3 8.0 Not Available [facility] [address] [place], [address], 02/07/2025 17:38:23 02/07/20 25 02/07/2025 CBC WITH DIFFE RENTI AL RDW 13.0 % 11.5-1 6.0 Not Available [facility] [address] [place], [address], 02/07/2025 17:38:23 02/07/20 25 02/07/2025 CBC WITH DIFFE RENTI AL platelet count 275 K/uL 150-45 0 Not Available [facility] [address] [place], [address], 02/07/2025 17:38:23 02/07/20 25 02/07/2025 CBC WITH DIFFE RENTI AL abs neutrophils 2.5 K/uL 1.8-7. 0 Not Available [facility] [address] [place], [address], 02/07/2025 17:38:23 02/07/20 25 02/07/2025 CBC WITH DIFFE RENTI AL abs lymphocytes 2.2 K/uL 1.0-4. 0 Not Available [facility] [address] [place], [address], 02/07/2025 17:38:23 02/07/20 25 02/07/2025 CBC WITH DIFFE RENTI AL abs monocytes 0.3 K/uL 0.1-1. 1 Not Available [facility] [address] [place], [address], 02/07/2025 17:38:23 02/07/20 25 02/07/2025 CBC WITH DIFFE RENTI AL abs eosinophils 0.2 K/uL 0.0-0. 5 Not Available [facility] [address] [place], [address], 02/07/2025 17:38:23 02/07/20 25 02/07/2025 CBC WITH DIFFE RENTI AL abs basophils 0.1 K/uL 0.0-0. 3 Not Available [facility] [address] [place], [address], 02/07/2025 17:38:23 02/07/20 25 02/07/2025 CBC WITH DIFFE RENTI AL abs immature grans 0.0 K/uL 0.0-0. 1 Not Available [facility] [address], [place], [address], 02/07/2025 17:38:23 02/07/20 25 02/07/2025 CBC WITH DIFFE RENTI AL neutrophils 47.9 % Not Available [facility] [address] [place], [place], [address], 02/07/2025 17:38:23 02/07/20 25 02/07/2025 CBC WITH DIFFE RENTI AL lymphocytes 40.6 % Not Available [facility] [address] [place], [place], [address], 02/07/2025 17:38:23 02/07/20 25 02/07/2025 CBC WITH DIFFE RENTI AL monocytes 6.6 % Not Available [facility] [address] [place], [address], 02/07/2025 17:38:23 02/07/20 25 02/07/2025 CBC WITH DIFFE RENTI AL eosinophils 3.4 % Not Available [facility] [address] [place], [address], 02/07/2025 17:38:23 02/07/20 25 02/07/2025 CBC WITH DIFFE RENTI AL basophils 1.3 % Not Available [facility] [address] [place], [address], 02/07/2025 17:38:23 02/07/20 25 02/07/2025 CBC WITH DIFFE RENTI AL immature grans 0.2 % Not Available [facility] [address] [place], [address], 02/07/2025 17:38:23 02/07/20 25 02/07/2025 CBC WITH TERE MARTINEZ nucleated RBCs <1.0 /100_ WBCs <1 Not Available [facility] [address], [place], [address], 02/07/2025 17:38:23 02/07/20 25 02/11/2025 MANUA L ADD-O N date of collection 2024 Not Available [facility] [address] [place], [place], [address], 02/12/2025 02:38:49 02/07/2002/11/2025 MANUA L ADD-O N test set codes C114 Not Available [facility] [address] [place], [place], [address], 02/12/2025 02:38:49 02/07/2002/11/2025 MANUA L ADD-O N test(s) requested HEMOGL OBIN A1C Not Available [facility] [address] [place], [place], [address], 02/12/2025 02:38:49 02/07/2002/11/2025 MANUA L ADD-O N submitted DX code(s) R73.9 Not Available [facility] [address] [place], [place], [address], 02/12/2025 02:38:49 02/07/2002/11/2025 MANUA L ADD-O N requested by MASOOD Abrue LPN Not Available [facility] [address] [place], [place], [address], 02/12/2025 02:38:49 02/07/20 25 02/11/2025 MANUA L ADD-O N date requested 2024 Not Available [facility] [address] [place], [place], [address], 02/12/2025 02:38:49 02/07/2002/11/2025 MANUA L ADD-O N signature Signat ure: ___ Not Available [facility] [address] [facility] [place], [address], 02/12/2025 02:38:49 02/07/2002/11/2025 MANUA L ADD-O N [...] state ment for our recor ds to [phone] withi n 24 hours . Not Available [facility] [address] [facility] [place], [address], 02/12/2025 02:38:49 02/07/2002/12/2025 HEMOG LOBIN A1C hemoglobin A1C 6.1 % 4.2-5. 6 high Not Available [facility] [address] [facility] [place], [address], 02/12/2025 02:38:50 02/07/2002/12/2025 HEMOG LOBIN A1C mean [...] labor atory consu ltati on. Not Available [facility] [address] [place], [address], 02/12/2025 02:38:50 02/15/2002/16/2025 URINE CULTU RE urine culture See Note URINE CULTU RE Speci men Urine Pulido Top Tube CUL TURE* * 10,00 0-29, 999 cfu/m L Mixed uroge nital suzette Comme nts on Lab Id:34 [id number] Resul ts are consi stent with scottie l suzette and infec tious disea se guide lines would not sugge st furth er testi ng of this cultu re for routi ne patie nts. [facility] at[facility] [address] [place] [address] Labor atory Direc tor: Kamilah nguyen, PhD, D([facility]) CLIA# [id number] Not Available [facility] [address] [facility], [place], [address], 02/16/2025 01:40:29 02/15/2002/14/2025 urina lysis , dipst ick Leukocytes Large Not Available [facility] [address], [place], [address], 02/14/2025 15:45:49 02/15/20 25 02/14/2025 urina lysis , dipst ick Nitrite negati ve Not Available [facility] [address], [place], [address], 02/14/2025 15:45:49 02/15/2002/14/2025 urina lysis , dipst ick Urobilinogen .2 Not Available [facility] [address], [place], [address], 02/14/2025 15:45:49 02/15/2002/14/2025 urina lysis , dipst ick Protein 2000+ Not Available [facility] [address], [place], [address], 02/14/2025 15:45:49 02/15/2002/14/2025 urina lysis , dipst ick pH 7.0 Not Available [facility] [address], [place], [address], 02/14/2025 15:45:49 02/15/2002/14/2025 urina lysis , dipst ick Blood Large Not Available [facility] [address], [place], [address], 02/14/2025 15:45:49 02/15/2002/14/2025 urina lysis , dipst ick Specific [place] 1.025 Not Available [facility] [address], [place], [address], 02/14/2025 15:45:49 02/15/2002/14/2025 urina lysis , dipst ick Ketone Trace Not Available [facility] [address], [place], [address], 02/14/2025 15:45:49 02/15/2002/14/2025 urina lysis , dipst ick Bilirubin Negati ve Not Available [facility] [facility] [address], [place], [address], 02/14/2025 15:45:49 02/15/2002/14/2025 urina lysis , dipst ick Glucose Negati ve Not Available [place] [facility] [address], [place], [address], 02/14/2025 15:45:49 02/15/2002/14/2025 urina lysis , dipst ick Appearance Cloudy Not Available [facility] [facility] [address], [place], [address], 02/14/2025 15:45:49 02/15/2002/14/2025 urina lysis , dipst ick Color Dark Yellow Not Available [facility] [facility] [address], [place], [address], 02/14/2025 15:45:49 02/26/2002/25/2025 urina lysis , dipst ick Leukocytes Negati ve Not Available [facility] [address], [place], [address], 02/25/2025 16:08:32 02/26/20 25 02/25/2025 urina lysis , dipst ick Nitrite negati ve Not Available [facility] [facility] [address], [place], [address], 02/25/2025 16:08:32 02/26/20 25 02/25/2025 urina lysis , dipst ick Urobilinogen .2 Not Available [facility] [address], [place], [address], 02/25/2025 16:08:32 02/26/20 25 02/25/2025 urina lysis , dipst ick Protein Negati ve Not Available [facility] [address], [place], [address], 02/25/2025 16:08:32 02/26/20 25 02/25/2025 urina lysis , dipst ick pH 5.0 Not Available [facility] [facility] [address], [place], [address], 02/25/2025 16:08:32 02/26/20 25 02/25/2025 urina lysis , dipst ick Blood Small Not Available [place] [facility] [address], [place], [address], 02/25/2025 16:08:32 02/26/2002/25/2025 urina lysis , dipst ick Specific [place] 1.020 Not Available [facility] [address], [place], [address], 02/25/2025 16:08:32 02/26/2002/25/2025 urina lysis , dipst ick Ketone Negati ve Not Available [place] [facility] [address], [place], [address], 02/25/2025 16:08:32 02/26/20 25 02/25/2025 urina lysis , dipst ick Bilirubin Negati ve Not Available [place] [facility] [address], [place], [address], 02/25/2025 16:08:32 02/26/20 25 02/25/2025 urina lysis , dipst ick Glucose Negati ve Not Available [facility] [facility] [address], [place], [address], 02/25/2025 16:08:32 02/26/20 25 02/25/2025 urina lysis , dipst ick Appearance Slight ly Cloudy Not Available [place] [facility] [address], [place], [address], 02/25/2025 16:08:32 02/26/20 25 02/25/2025 urina lysis , dipst ick Color Yellow Not Available [facility] [facility] [address], [place], [address], 02/25/2025 16:08:32 02/26/2002/25/2025 urina lysis , dipst ick Leukocytes Small Not Available [facility] [address], [place], [address], 02/25/2025 12:47:32 02/26/2002/25/2025 urina lysis , dipst ick Nitrite negati ve Not Available [place] [facility] [address], [place], [address], 02/25/2025 12:47:32 02/26/2002/25/2025 urina lysis , dipst ick Urobilinogen .2 Not Available [facility] [facility] [address], [place], [address], 02/25/2025 12:47:32 02/26/2002/25/2025 urina lysis , dipst ick Protein Trace Not Available [facility] [facility] [address], [place], [address], 02/25/2025 12:47:32 02/26/2002/25/2025 urina lysis , dipst ick pH 6.5 Not Available [facility] [address], [place], [address], 02/25/2025 12:47:32 02/26/2002/25/2025 urina lysis , dipst ick Blood Non-He molyze d: Trace Not Available [place] [facility] [address], [place], [address], 02/25/2025 12:47:32 02/26/2002/25/2025 urina lysis , dipst ick Specific [place] 1.025 Not Available [facility] [address], [place], [address], 02/25/2025 12:47:32 02/26/2002/25/2025 urina lysis , dipst ick Ketone Trace Not Available [facility] [address], [place], [address], 02/25/2025 12:47:32 02/26/2002/25/2025 urina lysis , dipst ick Bilirubin Negati ve Not Available [facility] [address], [place], [address], 02/25/2025 12:47:32 02/26/2002/25/2025 urina lysis , dipst ick Glucose Negati ve Not Available [facility] [address], [place], [address], 02/25/2025 12:47:32 02/26/2002/25/2025 urina lysis , dipst ick Appearance Slight ly Cloudy Not Available [facility] [address], [place], [address], 02/25/2025 12:47:32 02/26/2002/25/2025 urina lysis , dipst ick Color Dark Yellow Not Available [facility] [facility] [address], [place], [address], 02/25/2025 12:47:32 Result Notes None recorded. 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 Vivian garrido, [facility] 2 12:27:45 Mild neurocogn itive disorder 648806736 Active 2021 Yee Tan APRN [address], [place], [address] , [facility] 3 22:19:17 Chronic back pain 233369788 Active 2021 Yee Tan, [employer] [address], [place], [address], [place] [facility] 3 22:17:47 Dizziness 828889068 Completed 202105/25/2023 Yee Tan APRN [address], [place], [address], [place] [facility] 4 13:15:53 Anxiety 53018439 Active 2021 Yee Tan APRN [address], [place], [address], [place] [facility] 3 22:16:36 Gastroeso phageal reflux disease without esophagit is 747531281 Active 2021 Yee Tan [employer] [address], [place], [address], [place] [facility] 3 22:17:47 Arthritis 2742821 Active 2021 Yee Tan APRN [address], [place], [address], [place] [facility] 3 22:17:47 Hyperlipi demia 85638944 Active 2021 Yee Tan APRN [address], [place], [address], [place] [facility] 3 22:16:36 Major depressiv e disorder 429756273 Completed 202105/25/2023 Yee Tan APRN [address], [place], [address], [facility] 4 00:35:11 Memory impairmen t 462989147 Active 2021 Yee GABRIELA TanN [address], [place], [address], [place] [facility] 3 22:17:47 Pain of left thigh 592663122445 105 Completed 202105/23/2023 Yee Tan APRN [address], [place], [address], [facility] 4 20:24:45 Poor balance 104537330 Completed 202105/25/2023 Yee Tan APRN [address], [place], [address], [facility] 4 00:35:11 Difficult y walking 802203846 Completed 202105/25/2023 Yee Tan APRN [address], [place], [address], [facility] 4 00:35:11 Impacted cerumen in right ear 433987983242 9103 Completed 202105/20/2022 Yee Tan APRN [address], [place], [address], [facility] 3 22:17:27 Postconcu ssion syndrome 95532038 Completed 202205/20/2022 Yee Tan APRN [address], [place], [address], [facility] 3 22:17:27 Lumbar radiculop athy 577497330 Completed 202205/23/2023 Yee Tan APRN [address], [place], [address], [facility] 4 20:24:41 Spasm of back muscles 494976831 Completed 202205/25/2023 Yee Tan APRN [address], [place], [address], [facility] 4 00:35:11 Pain of bilateral hip joints 102687942596 44623 Completed 202205/25/2023 Yee Tan APRN [address], [place], [address], [facility] 4 00:35:11 Spasm 28136519 Completed 202205/23/2023 Yee Tan APRN [address], [place], [address], [facility] 20:24:23 Screening mammograp hy Completed 202205/23/2023 Yee Tan APRN [address], [place], [address], [facility] 4 13:12:05 Adult health examinati on Completed 202205/23/2023 Yee Tan APRN [address], [place], [address], [facility] 13:12:36 Body mass index 30+ - obesity 580759981 Completed 202205/25/2023 Yee Tan APRN [address], [place], [address], [facility] 4 14:09:40 Screening for malignant neoplasm of cervix Completed 202205/23/2023 Yee Tan APRN [address], [place], [address], [facility] 4 20:24:23 Gynecolog ic examinati on Completed 202205/23/2023 Yee Tan APRN [address], [place], [address], [facility] 20:24:23 Pain in right foot 761155916956 107 Completed 202205/23/2023 Yee Tan APRN [address], [place], [address], [facility] - [facility] 4 20:24:23 Pain of multiple joints 87023417 Active 2023 Yee Tan APRN [address], [place], [address], [facility] 4 00:34:17 Insomnia 581947781 Active 2023 Yee Tan APRN [address], [place], [address], [facility] 4 00:34:17 Mild recurrent major depressio n 45689267 Active 2023 Yee Tan APRN [address], [place], [address], [facility] 4 00:34:17 Attention deficit hyperacti vity disorder, predomina ntly inattenti ve type 01424119 Active 2023 Yee Tan APRN [address], [place], [address], [facility] 4 00:34:17 Daytime hypersomn ia 314503808005 02 Active 2023 Yee Tan APRN [address], [place], [address], [facility] 4 14:09:40 Mild intermitt ent asthma 293815788 Active 2023 Yee Tan APRN [address], [place], [address], [facility] 4 14:09:40 Body mass index 30+ - obesity 039834134 Active 2023 Yee Tan APRN [address], [place], [address], [facility] [place] 4 14:09:40 Influenza A virus present [id number] Completed 202301/21/2025 TRUPTI Rivera, [employer] [address], [place], [address], [facility] 5 11:34:50 Fever 379963617 Active 2023 Yee JOHN Tan [address], [place], [address], [facility] 4 20:12:16 Bulging tympanic membrane 347405732 Active 2023 Yee GABRIELA TanN [address], [place], [address], [facility] 4 13:15:51 Dizziness 496234650 Active 2023 Yee Tan APRN [address], [place], [address], [facility] 4 13:15:53 Screening mammograp hy Active 2023 Yee Tan APRN [address], [place], [address], [facility] 4 13:12:04 Adult health examinati on Active 2023 Yee JOHN Tan [address], [place], [id number], [facility] 4 13:12:36 Self-bath ing/hygie ne deficit 31845635 Active 2023 Yee Tan APRN [address], [place], [address], [facility] 4 13:17:34 Screening for osteoporo sis Active 2023 Yee Tan APRN [address], [place], [address], [facility] 4 13:17:40 Essential hypertens ion 38676957 Active 2024 TRUPTIRA PEREZKATHERIN N, [employer] [address], [place], [address], [facility] 11:36:15 Epigastri c pain 61985129 Active 2024 TRUPTI GONZALEZ N, [employer] [address], [place], [address], [facility] 23:09:50 Recurrent urinary tract infection 797087197 Active 2024 Sudha Hyun null, [facility] 12:50:22 Incontine nce 87415605 Active 2024 TRUPTI GONZALEZ N, [employer] [address], [place], [address], [facility] 12:35:12 Problem Notes None recorded. Procedures Surgical History Date Name Laterality Status Provider Name and Address Organization Details Recorded Time 04/22/20 22 Cerumen Removal completed Yee Tan, [employer] [address], [place], [address], [facility] 04/22/2022 14:54:28 03/09/20 12 implantation of neurostimulator in spine completed [facility] 04/13/2022 12:33:40 06/14/19 08 back fusion completed [facility] 04/13/2022 12:33:33 03/08/20 07 open reduction of trimalleolar fracture of ankle with internal fixation completed [facility] 04/13/2022 12:34:11 Imaging Results None recorded. Procedure Notes None recorded. Medical Equipment None Reported. Allergies Allergen ID Allergen Name Allergen Category Reaction Reaction Severity Criticality Documentation Date Start Date Code Code System Note Provider Name and Address Organization Details Recorded Time 830312 lisinopri l medicatio n cough Not available low 02/26/2025 04754 RxNorm TRUPTI GONZALEZ N, [employer] [address], [place], [address] [place] [address] - [facility] 12:36:14 Medications Name Sig Start Date [...] PACKAGE FOR 6 DAYS. TAKE WITH FOOD. 04/30 /2024 completed Not Available Not Available Not Available [...] Not Available Vitals Date Recorded Body height Heart rate Respiratory rate Body temperature Body mass index (BMI) Body weight Oxygen saturation Systolic And Diastolic Provider Name and Address Organization Details Last Updated DateTime 167.64 cm 65 /min 20 /min 97.8 [degF] 32.5 kg/m2 64807.5 g 98 % 132/84 mm[Hg] yan kemp [facility] 11:27:26 Social History Question Answer Notes LastModified by Organizat ion Details LastModified Time Tobacco Smoking Status Never Smoker Vivian garrido, [facility] 04/13/2022 12:56:00 In The 14 Days Before Symptom Onset, Have You Had Close Contact With A Laboratory-confirm ed COVID-19 While That Case Was Ill? No [email or web address] Information n ot available 04/13/2022 In The 14 Days Before Symptom Onset, Have You Had Close Contact With A Person Who Is Under Investigation For COVID-19 While That Person Was Ill? No Information not available 04/13/2022 Have You Been To An Area Known To Be High Risk For COVID-19? Yes [email or web address] Information not available 04/13/2022 What Type Of Diet Are You Following? REGULAR [email or web address] Information n ot available 04/13/2022 What Was The Date Of Your Most Recent Tobacco Screening? 03/29/2025 Information not available 03/29/2025 Do You Use Your Seat Belt Or Car Seat Routinely? Yes [email or web address] Information not available 04/13/2022 Has Tobacco Cessation Counseling Been Provided? Yes [email or web address] Information not available 04/13/2022 On What Date Was Tobacco Cessation Counseling Provided? 03/29/2025 Information not available 03/29/2025 Sex: Female Functional Status Question Answer Note LastModified by Organizat ion Details LastModified Time Do you use any illicit or recreational drugs? No [email or web address] Information not available 04/13/2022 Do you or have you ever used any other forms of tobacco or nicotine? No [email or web address] Information not available 04/13/2022 What is your level of alcohol consumption? None [email or web address] Information not available 04/13/2022 What is your exercise level? None [email or web address] Information not available 04/13/2022 Mental Status Question Answer Note LastModified by Organization D etails LastModified Time Do you feel stressed (tense, restless, nervous, or anxious, or unable to sleep at night)? [id number] [email or web address] Information not available 04/13/2022 Family History Relationship Description Onset Age of this Age Resolved Age Notes LastModified by Organization Details LastModified Time Father Diabetes mellitus Not available 04/13 12:55:01 Father Family history of malignant neoplasm [email or web address] Not available 04/13 12:55:26 Mother Diabetes mellitus [email or web address] Not available 04/13 12:55:04 Mother Hypertensive disorder [email or web address] Not available 04/13 12:55:14 Medical History Condition [...] ICD10 Code Diagnosis IMO Codes Diagnosis Note [id number] TRUPTI LO APRN [facility] [address] [place] [address] 02/04/2025 14:50:50 02/04/2025 15:36:06 Essential hypertension 11914778 I10 86703 1. Check blood pressure daily. Write these [...] 2 weeks to review BP. Epigastric pain 57254771 R10.13 R14.1 38921 1. F/u this week for h pylori, CBC, CMP, lipid, amylase, lipase, and A1c.2. F/u with surgeon as scheduled. Call for any worsening. 3. Continue pantoprazo le 40mg daily. [id number] [facility] [address] [place] [address] 02/14/2025 15:12:23 02/14/2025 15:48:55 Acute cystitis 89767404 N30.01 R30.0 3283259 1. Increase oral liquids. 2. May start/cont Azo for the dysuria. 3. Ensure that you complete the entire dose of antibiotic s. 4. FU in 10 days to have UA repeated. Culture sent today. Essential hypertension 24583600 I10 87728 1. Improved, just start Lisinopril two days ago. Check blood pressure daily. Write these readings down and bring to next follow-up visit.2. Educated on the importance of aerobic exercise at least 30 minutes daily to help reduce blood pressure.4 . Continue Lisinopril 40mg daily. F/u in 10 days to review BP. [id number] JOHN ALEMAN [facility] [address] [place] [address] 02/26/2025 11:03:34 02/26/2025 11:55:55 Incontinence 77979222 N39.46 R31.29 886874 1. Limit caffeine and alcoho as they [...] urology for worsening with hematuria. Essential hypertension 20012491 I10 46290 1. Stop Lisinopril d/t cough. Start Amlodipine 10mg at hs. Check blood pressure daily. Write these readings down and bring to next follow-up visit.2. Educated on the importance of aerobic exercise at least 30 minutes daily to help reduce blood pressure.3 . F/u in 1 month. Hiatal hernia 20047555 K 44.9 6918 1. F/u with surgeon as scheduled. 2. Trial d/c of Protonix.3 . F/u in 1 month. Health Concerns Section Related Observation LastModified by Organization Detai ls LastModified Time None Recorded Concern Status LastModified by Organization Details LastModified Time None Recorded Payers Encounter Date Sequence Insurance Name Policy Number Policy Garcia Covered Member ID Garcia Member ID Guarantor Name 02/26/2025 1 [place] Sia Lakhani [id number] Sia Lakhani 02/26/2025 2 FOR LIFE ( - MEDICARE SUPPLEMENT) Sia Lakhani [id number] Sia Lakhani Notes Date Note Type Note Provider Name and Address Organization Details Recorded Time 02/26/2025 text/html Patient is a 70 y/o [...] symptoms better than the protonix. TRUPTI LO, [employer] [address], [place], [address], [facility] 02/26/2025 12:40:48 OBGyn Episode No OBEpisode recorded.
--- NOTE | 2025-04-13 13:50 | PC.NURSE ---
PT REPORTS 4MG ZOFRAN GIVEN PRIOR TO ARRIVAL TO ED. PT REFUSED ZOFRAN ORDERED IN ER. PT REPORTS SHE WILL LET THIS RN KNOW IF SHE NEEDS IT.
[2025-04-13 13:52] VITALS: BP 149/98; PULSE 86; O2SAT 96
[2025-04-13 14:15] VITALS: BP 129/87; PULSE 76; O2SAT 94
[2025-04-13 14:16] LABS: Hematocrit 43.1 % (36-47); Hemoglobin 14.40 g/dL (11.27-16.99); Mean Corpuscular HGB Conc 33.4 g/dL (30-55); Mean Corpuscular Hemoglobin 29.3 pg (27-33); Mean Corpuscular Volume 87.8 fl (85-98); Nucleated Red Blood Cells % 0 %; Platelet Count 191 10^3/cmm (157-399); Red Blood Count 4.91 10^6/uL (3.85-5.65); White Blood Count 4.61 10^3/uL (3.29-11.43)
[2025-04-13 14:30] VITALS: BP 146/119; PULSE 77; O2SAT 95
[2025-04-13 14:36] LABS: Glucose Urine UA Negative (Normal); Nitrate Urine Negative (Negative); Specific Gravity, Urine 1.029 (1.005-1.030)
[2025-04-13 14:36] LABS: Alanine Aminotransferase 17 U/L (0-33); Albumin Level 4.4 g/dL (3.5-5.2); Alkaline Phosphatase 86 U/L (35-105); Anion Gap 18.5 (5-19); Aspartate Amino Transferase 25 U/L (0-32); Blood Urea Nitrogen 18 mg/dL (8-23); Calcium 8.9 mg/dL (8.5-10.5); Carbon Dioxide 22 mmol/L (22-29); Chloride 101 mmol/L (98-107); Globulin 2.6 g/dL (1.3-4.6); Glucose 104 mg/dL (65-115); Lipase 26 U/L (13-60); Osmolality Calculated 288 mOsm/kg (285-295); Potassium 3.5 mmol/L (3.5-5.1); Sodium 138 mmol/L (136-145); Total Protein 7.0 g/dL (6.6-8.7)
[2025-04-13 14:41] LABS: Add Urine Microscopic? YES
[2025-04-13 14:55] LABS: UA Slide Review UA Slide Review Perf
[2025-04-13 15:00] VITALS: BP 165/93; PULSE 79; O2SAT 94
[2025-04-13] MEDS: ondansetron 2 mg/ML SDV 2 mL 4 MG IVP (15:23)
[2025-04-13] MEDS: morphine 4 mg/mL SDV 1 mL IVP (15:23)
[2025-04-13 16:03] VITALS: BP 159/100; PULSE 79; O2SAT 97
== END 2025-04-13 16:05 | disposition home or self-care (01) ==
PROVIDERS: Emergency Provider Emergency Medicine; PCP Nurse Practitioner Family
DX: R11.2 Nausea with vomiting, unspecified (principal)
CPT/HCPCS: 36415; 80053; 81001; 83690; 85025; 96361; 96374; 96375; 99284; J2270; J2405; J7030